=== PATIENT | male | born 1945 | race Caucasian/White ===

== ENCOUNTER 2018-03-17 09:28 | Inpatient (IN) | payer OTHER ==
[2018-03-17] MEDS ORDERED: PANTOPRAZOLE 40 MG INJ ONE (10:32)
[2018-03-17] MEDS ORDERED: ONDANSETRON 4 MG/2 ML VIAL ONE ×2 (10:32→12:28)
[2018-03-17 10:37] LABS: Absolute Lymphocytes (CBC) 1.3 K/uL (0.7-4.9); Absolute Monocytes 0.5 K/uL (0.1-1.3); Absolute Neutrophil 1.8 K/uL (1.8-8.0); Eosinophils % 4.1 % (0-4.4); Hematocrit 38.5 % (39.6-49.0); Lymphocytes % 35.7 % (15.3-44.8); MCH 36.9 pg (27.0-35.0); MCV 105.2 fL (80-100); MPV 8.6 fL (7.6-11.3); Monocytes % 12.1 % (3.3-12.3); RBC Red Blood Cell Count 3.66 M/uL (4.33-5.43)
[2018-03-17 10:57] LABS: Albumin 3.2 g/dL (3.4-5.0); Bilirubin Direct 0.8 mg/dL (0-0.2); Bilirubin Total 2.6 mg/dL (0.2-1.0); Potassium 3.3 mmol/L (3.5-5.1); Protein, Total 7.8 g/dL (6.4-8.2)
[2018-03-17 11:31] LABS: Blood Morphology Comment NOTED (NOT SEEN); Macrocytosis 1+; Platelet Estimate DECR; Urine White Blood Cell Casts OK
[2018-03-17 11:38] LABS: Urine Blood NEGATIVE (NEG); Urine Glucose NEGATIVE (NEG); Urine Protein NEGATIVE (NEG); Urine Specific Gravity 1.015 (1.005-1.030)
[2018-03-17 11:55] LABS: Urine Bacteria NONE SEEN /HPF (NONE SEEN); Urine Culture Reflex Order NOT NEEDED; Urine RBC <5 /HPF (NONE SEEN)
[2018-03-17] MEDS ORDERED: NA CHLORIDE 0.9% 500 ML ONE (12:28)
[2018-03-17] MEDS ORDERED: LORazepam 2 MG/ML VIAL ONE (12:28)
--- NOTE | 2018-03-17 12:31 | ER ---
Nurse's Notes [facility] Name: Ivette Padilla Age: 72 yrs Sex: Male : 1945 Arrival Date: 03/17/2018 Time: 09:30 Bed 13 Private MD: Diagnosis: Upper GI bleed Presentation: 03/17 10:07 Presenting complaint: Patient states: has hx of cirrhosis, started spitting up blood iw this morning at 0830, pt has hx of esophageal varices, is being treated by Dr. Barone at [facility] ,was told to come to ER for evaluation, pt denies nausea or vomiting, denies pain. Transition of care: patient was not received from another setting of care. Onset of symptoms was March 17, 2018. Risk Assessment: Do you want to hurt yourself or someone else? Patient reports no desire to harm self or others. Initial Sepsis Screen: Does the patient meet any 2 criteria? No. Patient's initial sepsis screen is negative. Does the patient have a suspected source of infection? No. Patient's initial sepsis screen is negative. Care prior to arrival: None. 10:07 Method Of Arrival: Ambulatory iw 10:07 Acuity: JADEN 2 iw Triage Assessment: 10:14 General: Appears in no apparent distress. uncomfortable, Behavior is calm, cooperative, hj appropriate for age. Pain: Denies pain. EENT: No signs and/or symptoms were reported regarding the EENT system. Neuro: Cardiovascular: Reports Capillary refill < 3 seconds Patient's skin is warm and dry. Respiratory: Airway is patent Respiratory effort is even, unlabored, Respiratory pattern is regular, symmetrical. GI: Reports vomtinig blood. : No signs and/or symptoms were reported regarding the genitourinary system. Derm: No signs and/or symptoms reported regarding the dermatologic system. Musculoskeletal: No signs and/or symptoms reported regarding the musculoskeletal system. Historical: - Allergies: 10:12 NKA; iw - Home Meds: 10:12 amiloride 5 mg oral tab 1 tab once daily [Active]; furosemide 20 mg Oral tab 1 tab once iw daily [Active]; amlodipine 5 mg tab 1 tab once daily [Active]; ferrous gluconate 324 mg (36 mg iron) Oral tab daily [Active]; cholecalciferol (vitamin D3) 400 unit oral cap twice a day [Active]; cyanocobalamin (vitamin B-12) 1,000 mcg oral tab daily [Active]; - PMHx: 10:12 Cirrhosis; Hypertension; esophageal varices; iw - PSHx: 10:12 Knee surgery; foot; iw - Immunization history:: Adult Immunizations. - Ebola Screening: : Patient negative for fever greater than or equal to 101.5 degrees Fahrenheit, and additional compatible Ebola Virus Disease symptoms Patient denies exposure to infectious person Patient denies travel to an Ebola-affected area in the 21 days before illness onset No symptoms or risks identified at this time. - Social history:: Smoking status: Patient/guardian denies using tobacco, Patient/guardian denies using alcohol. Screenin:13 Abuse screen: Denies threats or abuse. Denies injuries from another. Nutritional hj screening: No deficits noted. Tuberculosis screening: No symptoms or risk factors identified. Fall Risk None identified. Assessment: 11:30 General: Appears in no apparent distress. comfortable, Behavior is calm, cooperative, aj appropriate for age. Pain: Denies pain. Neuro: Level of Consciousness is awake, alert, obeys commands, Oriented to person, place, time, situation, Appropriate for age. Respiratory: Airway is patent Respiratory effort is even, unlabored, Respiratory pattern is regular, symmetrical. GI: Reports vomiting, Vomiting bright red blood. Derm: Skin is intact, is healthy with good turgor, Skin is pink, warm \T\ dry. normal. 15:12 Reassessment: Patient appears in no apparent distress at this time. Patient and/or iw family updated on plan of care and expected duration. Pain level reassessed. Patient is alert, oriented x 3, equal unlabored respirations, skin warm/dry/pink. Vital Signs: 10:12 BP 177 / 66; Pulse 95; Resp 16; Temp 98.2; Pulse Ox 96% on R/A; Weight 83.91 kg; Height iw 5 ft. 6 in. (167.64 cm); Pain 0/10; 11:30 BP 169 / 64; Pulse 82; Resp 17; Pulse Ox 95% on R/A; aj 12:00 BP 165 / 65; Pulse 81; Resp 20; Pulse Ox 99% on R/A; aj 14:46 BP 138 / 53; Pulse 67; Resp 20; Pulse Ox 95% on R/A; aj 10:12 Body Mass Index 29.86 (83.91 kg, 167.64 cm) ED Course: 09:30 Patient arrived in ED. rg4 10:04 Melvin Anton MD is Attending Physician. ps1 10:10 Triage completed. iw 10:12 Magdi Riggs, RN is Primary Nurse. hj 10:12 Arm band placed on. iw 10:15 Patient has correct armband on for positive identification. Placed in gown. Bed in low hj position. Call light in reach. Side rails up X 1. Adult w/ patient. 11:30 Inserted saline lock: 20 gauge in left antecubital area, using aseptic technique. By job [place]. 12:30 Liang Carias DO is Hospitalizing Provider. ps1 12:35 Hospitalizing Provider role handed off by Liang Carias DO ps1 12:35 Mor Rivera MD is Hospitalizing Provider. ps1 14:46 No provider procedures requiring assistance completed. Patient admitted, IV remains in aj place. intact. Administered Medications: 10:16 Drug: ProTONIX 80 mg Route: IVP; Site: left antecubital; hj 11:03 Follow up: Response: No adverse reaction hj 10:16 Drug: Zofran 4 mg Route: IVP; Site: left antecubital; hj 11:03 Follow up: Response: No adverse reaction hj Outcome: 12:30 Decision to Hospitalize by Provider. ps1 15:12 Admitted to Med/surg accompanied by tech, via wheelchair, room 206, Report called to sybil May RN 15:12 Condition: good 15:12 Discharge instructions given to patient, family, Instructed on the need for admit. 15:35 Patient left the ED. aj Signatures: Aleah Wilburn RN Trice Mclean RN RN iw Joaquin, Henry, RN RN hj Garcia, Rubi rg4 Melvin Anton MD MD ps1
--- NOTE | 2018-03-17 12:31 | EDPHYS ---
Physician Documentation [facility] Name: Ivette Padilla Age: 72 yrs Sex: Male : 1945 Arrival Date: 03/17/2018 Time: :30 Bed 13 Private MD: ED Physician Melvin Anton HPI: 03/17 10:27 This 72 yrs old Male presents to ER via Ambulatory with complaints of ps1 SPITTING UP BLOOD. 10:27 The patient presents to the emergency department vomiting blood, a moderate amount, ps1 bright red, with multiple such episodes. Onset: The symptoms/episode began/occurred at 08:00. Abdominal pain: described as crampy. Associated signs and symptoms: Pertinent positives: vomiting. Severity of symptoms: in the emergency department the symptoms are unchanged. history of varicies, no bleeding in past, no banding, hx of cirrhosis and treated at [facility] and in [place]. . Historical: - Allergies: 10:12 NKA; iw - Home Meds: 10:12 amiloride 5 mg oral tab 1 tab once daily [Active]; furosemide 20 mg Oral tab 1 tab once iw daily [Active]; amlodipine 5 mg tab 1 tab once daily [Active]; ferrous gluconate 324 mg (36 mg iron) Oral tab daily [Active]; cholecalciferol (vitamin D3) 400 unit oral cap twice a day [Active]; cyanocobalamin (vitamin B-12) 1,000 mcg oral tab daily [Active]; - PMHx: 10:12 Cirrhosis; Hypertension; esophageal varices; iw - PSHx: 10:12 Knee surgery; foot; iw - Immunization history:: Adult Immunizations. - Ebola Screening: : Patient negative for fever greater than or equal to 101.5 degrees Fahrenheit, and additional compatible Ebola Virus Disease symptoms Patient denies exposure to infectious person Patient denies travel to an Ebola-affected area in the 21 days before illness onset No symptoms or risks identified at this time. - Social history:: Smoking status: Patient/guardian denies using tobacco, Patient/guardian denies using alcohol. ROS: 10:27 Constitutional: Negative for fever, chills, and weight loss, Eyes: Negative for injury, ps1 pain, redness, and discharge, Cardiovascular: Negative for chest pain, palpitations, and edema, Respiratory: Negative for shortness of breath, cough, wheezing, and pleuritic chest pain, : Negative for injury, bleeding, discharge, and swelling, MS/Extremity: Negative for injury and deformity, Skin: Negative for injury, rash, and discoloration, Neuro: Negative for headache, weakness, numbness, tingling, and seizure. 10:27 Abdomen/GI: Positive for nausea and vomiting, hematemesis. Exam: 10:27 Constitutional: This is a well developed, well nourished patient who is awake, alert, ps1 and in no acute distress. Head/Face: Normocephalic, atraumatic. Eyes: Pupils equal round and reactive to light, extra-ocular motions intact. Lids and lashes normal. Conjunctiva and sclera are non-icteric and not injected. Chest/axilla: Normal chest wall appearance and motion. Nontender with no deformity. No lesions are appreciated. Cardiovascular: Regular rate and rhythm. No gallops, murmurs, or rubs. Normal PMI, no JVD. No pulse deficits. Respiratory: Lungs have equal breath sounds bilaterally, clear to auscultation and percussion. No rales, rhonchi or wheezes noted. No increased work of breathing, no retractions or nasal flaring. Back: No spinal tenderness. No costovertebral tenderness. Full range of motion. Skin: Warm, dry with normal turgor. Normal color with no rashes, no lesions, and no evidence of cellulitis. 10:27 Abdomen/GI: Inspection: distension, that is mild, Bowel sounds: normal, Liver: is enlarged, emesis/gastric contents smell of blood. Vital Signs: 10:12 BP 177 / 66; Pulse 95; Resp 16; Temp 98.2; Pulse Ox 96% on R/A; Weight 83.91 kg; Height iw 5 ft. 6 in. (167.64 cm); Pain 0/10; 11:30 BP 169 / 64; Pulse 82; Resp 17; Pulse Ox 95% on R/A; aj 12:00 BP 165 / 65; Pulse 81; Resp 20; Pulse Ox 99% on R/A; aj 14:46 BP 138 / 53; Pulse 67; Resp 20; Pulse Ox 95% on R/A; aj 10:12 Body Mass Index 29.86 (83.91 kg, 167.64 cm) iw MDM: 10:24 Patient medically screened. [facility] 03/17 10:16 Order name: Amylase, Serum; Complete Time: 11:09 ps1 03/17 10:16 Order name: CBC with Diff; Complete Time: 11:33 ps1 03/17 10:16 Order name: Hepatic Function; Complete Time: 11: ps1 03/17 10:16 Order name: Lipase; Complete Time: 11:09 ps1 03/17 10:16 Order name: Urine Microscopic Only; Complete Time: 11:58 ps1 03/17 10:16 Order name: CMP; Complete Time: 11: ps1 03/17 10:16 Order name: Type And Screen; Complete Time: 11:16 ps1 03/17 10:42 Order name: CBC Smear Scan; Complete Time: 11:33 EDOK 03/17 11:01 Order name: ABO/RH no charge; Complete Time: 11: EDOK 03/17 11:28 Order name: Urine Dipstick--Ancillary (enter results); Complete Time: 11:39 bd 03/17 13:01 Order name: Basic Metabolic Panel [facility] 03/17 13:01 Order name: Basic Metabolic Panel [facility] 03/17 13:01 Order name: CBC with Automated Diff [facility] 03/17 13:01 Order name: CBC with Automated Diff [facility] 03/17 10:16 Order name: IV Saline Lock; Complete Time: 10:21 ps1 03/17 10:16 Order name: Labs collected and sent; Complete Time: 10:21 ps1 03/17 13:01 Order name: CONS Pharmacy Consult [facility] 03/17 13:01 Order name: CONS Physician Consult [facility] 03/17 13:01 Order name: NPO [facility] 03/17 13:01 Order name: Hematocrit [facility] 03/17 13:01 Order name: Hematocrit [facility] 03/17 13:01 Order name: Hematocrit [facility] 03/17 13:01 Order name: Hematocrit [facility] 03/17 13:01 Order name: Hemoglobin [facility] 03/17 13:01 Order name: Hemoglobin [facility] 03/17 13:01 Order name: Hemoglobin [facility] 03/17 13:01 Order name: Hemoglobin [facility] 03/17 13:23 Order name: Protime (+INR) [facility] 03/17 10:16 Order name: NPO; Complete Time: 10:21 ps1 Administered Medications: 10:16 Drug: ProTONIX 80 mg Route: IVP; Site: left antecubital; hj 11:03 Follow up: Response: No adverse reaction hj 10:16 Drug: Zofran 4 mg Route: IVP; Site: left antecubital; hj 11:03 Follow up: Response: No adverse reaction hj Disposition: 03/17/18 12:30 Hospitalization ordered by Mor Rivera for Inpatient Admission. Preliminary diagnosis is Upper GI bleed. - Bed requested for Telemetry/MedSurg (Inpatient). - Status is Inpatient Admission. aj - Condition is Stable. - Problem is new. - Symptoms have improved. UTI on Admission? No Signatures: Dispatcher [employer] EDMS Elsa Spencer Amanda, RN RN aj Anderson, Corey, MD MD cha Williams, Irene, RN RN iw Joaquin, Henry, RN RN hj Singer, Phillip, MD MD ps1 Corrections: (The following items were deleted from the chart) 12:35 12:30 Hospitalization Ordered by Liang Carias DO for Inpatient Admission. Preliminary ps1 diagnosis is Upper GI bleed. Bed requested for Telemetry/MedSurg (Inpatient). Status is Inpatient Admission. Condition is Stable. Problem is new. Symptoms have improved. UTI on Admission? No. ps1 14:41 12:35 03/17/2018 12:30 Hospitalization Ordered by Mor Rivera MD for Inpatient bd Admission. Preliminary diagnosis is Upper GI bleed. Bed requested for Telemetry/MedSurg (Inpatient). Status is Inpatient Admission. Condition is Stable. Problem is new. Symptoms have improved. UTI on Admission? No. ps1 15:35 14:41 03/17/2018 12:30 Hospitalization Ordered by Mor Rivera MD for Inpatient aj Admission. Preliminary diagnosis is Upper GI bleed. Bed requested for Telemetry/MedSurg (Inpatient). Status is Inpatient Admission. Condition is Stable. Problem is new. Symptoms have improved. UTI on Admission? No. bd
[2018-03-17] MEDS ORDERED: ONDANSETRON 4 MG/2 ML VIAL IV PRN (12:56)
[2018-03-17] MEDS ORDERED: NA CHLORIDE 0.9% 250 ML IV SCH (13:00)
[2018-03-17] MEDS ORDERED: OCTREOTIDE 500 MCG in NA CHLORIDE 0.9% 500 ML IV SCH (14:00)
[2018-03-17 15:43] LABS: Protime INR 1.18
[2018-03-17 15:44] LABS: Hematocrit 36.5 % (39.6-49.0)
[2018-03-17] MEDS ORDERED: LABETALOL 20 MG/4ML SYRINGE IV PRN (15:57)
[2018-03-17 16:33] VITALS: BMI 29.8
[2018-03-17] MEDS: NA CHLORIDE 0.9% 1,000 ML IV SCH (16:55)
[2018-03-17] MEDS: OCTREOTIDE 500 MCG in NA CHLORIDE 0.9% 500 ML IV SCH (16:56)
[2018-03-17 17:32] LABS: Hematocrit 38.1 % (39.6-49.0)
[2018-03-17] MEDS ORDERED: PNEUMOCOCCAL VACCINE 0.5 ML IMVAC ONE (18:00)
[2018-03-17 21:00] LABS: Hematocrit 35.7 % (39.6-49.0)
[2018-03-17] MEDS: SODIUM CHLORIDE 0.9% 10ML INJ IV SCH (21:00)
[2018-03-17] MEDS: PANTOPRAZOLE 40 MG INJ IVP SCH (21:11)
--- NOTE | 2018-03-18 00:48 | HP ---
Date of Admission: 03/17/2018 Code Status: Full. Primary Care Physician: LUIS. Consultants: Dr. Pizarro, GI. Chief Complaint: Hematemesis. History Of Present Illness: The patient is a 72-year-old male with past medical history of liver cir rhosis secondary to complications from nonalcoholic fatty liver disease, esophageal varices, hyperten galindo, comes in with hematemesis several episodes since this morning. The patient states his symptoms are constant, moderate, progressively worsening, associated with some abdominal discomfort, and naus ea. No other changes. The patient is compliant with his medication. He has had EGD done in 2016 an d has hepatobiliary specialist at [facility], Dr. Son Barone. Upon arrival, the patient's blood pres sure was stable, he was afebrile. His workup revealed hemoglobin of 13.5. He did have some low pota ssium. The patient was then referred for admission for hematemesis. He was given IV PPI. When seen in the ER, he was awake, alert, and oriented x3, with some mild distress. Past Medical History: Liver cirrhosis secondary to complications from nonalcoholic fatty liver disea se. The patient denies any history of alcohol or hepatitis, hypertension, esophageal varices. Past Surgical History: Knee surgery, foot surgery, multiple scopes. Allergies: NO KNOWN DRUG ALLERGIES. Medications: List reviewed. Family History: No history of premature coronary artery disease. Social History: The patient denies any alcohol use, tobacco use, or illicit drug use. The patient i s a . The patient is , lives with his . Good social support. Review of Systems: An 11-point system reviewed, negative except as per HPI. Physical Examination: Vital Signs: Blood pressure 177/66, pulse 95, respirations 16, temperature 98.2, O2 96% on room air. General: Awake, alert, oriented x3. Some mild distress. Elderly male. CV: S1, S2. No murmurs. Regular rate and rhythm. HEENT: Normocephalic, atraumatic. PERRLA. EOMI. Dry mucous membranes. Oropharynx is clear. Conj unctiva is anicteric. Neck: Supple. No JVD. Respiratory: Clear to auscultation bilaterally. No wheezing. No stridor. No use of accessory musc les. Gastrointestinal: Abdomen is soft, nontender, and nondistended. Positive bowel sounds. No guarding or rigidity. No ascites. Extremities: No clubbing or cyanosis. The patient has 2+ lower extremity edema. Neuro: Cranial nerves 2 through 12 intact grossly. No focal neurological deficit. Speech is normal . Strength is 5/5 bilateral upper and lower extremities. Sensation intact to light touch. Skin: No rashes. Normal skin turgor. Psych: Mood is okay. Affect is full. Insight and judgment are good. Laboratory Data: Sodium 141, potassium 3.3, chloride 108, CO2 of 26, BUN 11, creatinine 0.9, glucose 139, calcium 9, total bilirubin 2.6, direct bilirubin 0.8, AST 90, ALT 56, alkaline phosphatase 154, albumin 3.2, lipase 249. WBC 3.8, H and H 13.5 and 38.5, platelets 86, neutrophils 47%. UA is nega tive. Assessment: A 72-year-old male with; 1.Acute gastrointestinal bleed. The patient has hematemesis, likely from esophageal varices. We wi ll start on beta-elio. Obtain GI consult. The patient will likely need EGD with banding of esoph ageal varices. Continue IV PPI. 2.History of liver cirrhosis. According to the patient, he had complications of nonalcoholic fatty liver disease, now with cirrhosis. The patient sees hepatobiliary specialist at [facility]. We will con tact Dr. Barone for further information. The patient recently had MRI of the liver. 3.Essential hypertension, stable. 4.Esophageal varices. We will add beta-elio. 5.GI/DVT prophylaxis with PPI and SCDs. No chemical anticoagulation due to GI bleed. Plan: Admit the patient to Med-Surg, place as inpatient. We will monitor vital signs closely. Celeste tor H and H q.4 hours. Transfuse as needed, type and screen. If vital signs become unstable, we enmanuel aragon transfer to ICU. /JESSE Voice ID: [id number]
[2018-03-18] MEDS: NA CHLORIDE 0.9% 1,000 ML IV SCH ×2 (03:00→16:06)
[2018-03-18] MEDS: OCTREOTIDE 500 MCG in NA CHLORIDE 0.9% 500 ML IV SCH ×4 (03:00→21:28)
[2018-03-18 05:33] LABS: Absolute Lymphocytes (CBC) 0.9 K/uL (0.7-4.9); Absolute Monocytes 0.6 K/uL (0.1-1.3); Absolute Neutrophil 4.5 K/uL (1.8-8.0); Basophils % 0.3 % (0-1.3); Hematocrit 35.1 % (39.6-49.0); MCV 106.2 fL (80-100); Monocytes % 9.9 % (3.3-12.3); RBC Red Blood Cell Count 3.31 M/uL (4.33-5.43)
[2018-03-18 05:41] LABS: Potassium 4.1 mmol/L (3.5-5.1)
[2018-03-18] MEDS: FUROSEMIDE 20 MG/ 2ML VIAL IV SCH (10:07)
[2018-03-18] MEDS: SODIUM CHLORIDE 0.9% 10ML INJ IV SCH ×2 (10:08→21:00)
[2018-03-18] MEDS: PANTOPRAZOLE 40 MG INJ IVP SCH ×2 (10:08→21:28)
[2018-03-18] MEDS ORDERED: NA CHLORIDE 0.9% 0 ML ONE (12:14)
[2018-03-18] MEDS ORDERED: PROPOFOL 200 MG/20 ML VIAL IV ONE ×2 (12:33)
[2018-03-18] MEDS ORDERED: LIDOCAINE 1% MPF 2 ML AMPULE ONE (12:33)
--- NOTE | 2018-03-18 14:04 | ENDO RPT ---
[address], [address] EGD PROCEDURE REPORT EXAM DATE: 03/18/2018 PATIENT NAME: Ivette Padilla MR#: [id number] BIRTHDATE: 1945 ATTENDING: Albino Pizarro Dr STATUS: inpatient [employer]: Racquel Kumari RN and Mya Huang RN INDICATIONS: The patient is a 72 yr old Male here for an EGD due to hematemesis, upper G.I. bleeding, and anemia PROCEDURE PERFORMED: EGD, diagnostic MEDICATIONS: Per Anesthesia. TOPICAL ANESTHETIC: none CONSENT: The patient understands the risks and benefits of the procedure and understands that these risks include, but are not limited to: sedation, allergic reaction, infection, perforation and/or bleeding. Alternative means of evaluation and treatment include, among others: physical exam, x-rays, and/or surgical intervention. The patient elects to proceed with this endoscopic procedure. DESCRIPTION OF PROCEDURE: During intra-op preparation period all mechanical medical equipment was checked for proper function. Hand hygiene and appropriate measures for infection prevention was taken. Procedure, possible complications, and alternatives including but not limited to the possibility of bleeding, perforation, tear, infection, sepsis, need for surgery, need for blood transfusion, and anesthesia related complications were explained to the patient. After the risks, benefits and alternatives of the procedure were thoroughly explained, Informed consent was verified, confirmed and timeout was successfully executed by the treatment team. The patient was placed in the left lateral position. The patient was anesthetized with topical anesthesia. Through the anesthetized oropharyngeal area, the scope was passed without any difficulty. The Pentax EG-[id number] ([id number]) endoscope was introduced through the mouth and advanced to the third portion of the duodenum. Retroflexed views revealed a moderate sized hiatal hernia. The gastroscope was then slowly withdrawn and removed. Blood was found in the pharynx. A small hiatal hernia was found Severe gastritis was found in the cardia. ADVERSE EVENTS: There were no complications. IMPRESSIONS: 1. Old dark>>fresh heme/blood was found in the hypopharynx 2. Possible Burns's esophagus ( 1 cm) in the distal esophagus (no biopsies obtained in setting of acute upper GI bleed) 3. Small hiatal hernia 4. Severe hemorrhagic gastritis at the cardia RECOMMENDATIONS: 1. check helicobacter pylori status, treat if indicated 2. acid suppression therapy REPEAT EXAM: Albino Pizarro Dr eSigned: Albino Pizarro Dr 03/18/2018 1:40 PM cc: CPT CODES: ICD9 CODES: PATIENT NAME: Valerie Jennifersil Sánchez MR#: [id number]
--- NOTE | 2018-03-18 18:05 | PN ---
Date of Progress Note: 03/18/2018 Subjective: The patient is seen and examined. Chart reviewed and case discussed with RN. The patient still having some hematemesis, however, has slowed down. The patient is going for EGD today. Review of Systems: Negative except as above. Medications: List reviewed. Physical Examination: Vital Signs: Temperature 98.1, heart rate 69, blood pressure 118/58, respirations 17, O2 saturation 95% on room air. General: Awake, alert, oriented x3, elderly male, somewhat ill-appearing. CV: S1, S2. No murmurs. Peripheral pulses present. Respiratory: Moving air well bilaterally. No wheezing. Gastrointestinal: Abdomen is soft, nontender, nondistended. Positive bowel sounds. Extremities: No clubbing, cyanosis. The patient does have lower extremity edema. Neurologic: Nonfocal. Laboratory Data: Sodium 143, potassium 4.1, chloride 112, CO2 24, BUN 15, creatinine 1, glucose 110, calcium 8.4. WBC 6.2, H and H 12.6 and 35.1, platelets 77. INR 1.18. Assessment: A 72-year-old male with: 1. Acute gastrointestinal bleed secondary to hematemesis, likely from esophageal varices. The patient does have history of liver cirrhosis. Awaiting EGD for banding procedure. H and H are stable. We will continue with octreotide and PPI. 2. Cirrhosis secondary to complications of nonalcoholic fatty liver disease. Spoke with Dr. Barone from [facility], who is the patient's hepatobiliary specialist. The patient had recent MRI of the liver, which showed the 1 lesion ; however, did not meet criteria suspicious for cancer. His AFP tumor marker was believed to be processed and will be redone when the patient visits with Dr. Barone again. 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 Portal vein is opened. Date of MRI was 03/12/2018. 3. Essential hypertension, stable. 4. Hypokalemia, replaced. We will continue to monitor. 5. Possible Esophageal varices. 6. Gastrointestinal and deep venous thrombosis prophylaxis with PPI and SCDs. No chemical anticoagulation due to gastrointestinal bleed. SA/MODL Voice ID: [id number] Report ID: [id number]
--- NOTE | 2018-03-19 00:52 | P.PN ---
Subjective Date of Service: 03/17/18 Called regarding coughing up blood-patient with persistent cough and multiple episodes of hemoptysis-may need Pulmonary eval but awaiting GI endoscopy; patient may have GIB as he has a history of esophageal varices Review of Systems 10-point ROS is otherwise unremarkable Physical Examination - Vital Signs Temperature: 98.5 F Blood Pressure: 129/61 Pulse: 72 Respirations: 16 Pulse Ox (%): 93 - Physical Exam General: Alert, In no apparent distress, Oriented x3 Respiratory: Clear to auscultation bilaterally, Normal air movement Cardiovascular: Regular rate/rhythm, Normal S1 S2, Systolic murmur Gastrointestinal: Soft and benign, Non-distended, No tenderness Assessment & Plan - Problems (Diagnosis) (1) Hemoptysis Current Visit: Yes Status: Acute (2) UGI bleed Onset Date: 03/18/18 Current Visit: Yes Status: Acute - Plan 1. Continue with upper GI work-up 2. May need pulmonary work-up depending on findings as above Discharge Plan: Home Plan to discharge in: Greater than 2 days - Advance Directives Does patient have a Living Will: No Does patient have a Durable POA for Healthcare: No - Code Status/Comfort Care Code Status Assessed: Yes Code Status: Full Code Critical Care: No Time Spent Managing PTS Care (In Minutes): 35
[2018-03-19] MEDS: NA CHLORIDE 0.9% 1,000 ML IV SCH (05:24)
[2018-03-19 05:32] LABS: Absolute Lymphocytes (CBC) 0.8 K/uL (0.7-4.9); Absolute Monocytes 0.4 K/uL (0.1-1.3); Absolute Neutrophil 1.6 K/uL (1.8-8.0); Basophils % 0.6 % (0-1.3); Eosinophils % 6.8 % (0-4.4); Hematocrit 33.2 % (39.6-49.0); Lymphocytes % 27.3 % (15.3-44.8); MCH 37.3 pg (27.0-35.0); MPV 8.9 fL (7.6-11.3); Monocytes % 13.5 % (3.3-12.3); RBC Red Blood Cell Count 3.15 M/uL (4.33-5.43)
[2018-03-19 05:40] LABS: MCV 105.5 fL (80-100)
[2018-03-19 05:53] LABS: Albumin 2.7 g/dL (3.4-5.0); Bilirubin Total 2.5 mg/dL (0.2-1.0); Magnesium 1.8 mg/dL (1.8-2.4); Potassium 3.8 mmol/L (3.5-5.1); Protein, Total 6.4 g/dL (6.4-8.2)
[2018-03-19] MEDS ORDERED: POTASSIUM CL SA 10 MEQ TAB PO ONE (06:30)
[2018-03-19] MEDS ORDERED: MAGNESIUM SULFATE 1 gm IVPB 1 GM/100 ML BAG IV ONE (06:30)
--- NOTE | 2018-03-19 08:27 | RAD REPORT ---
EXAM DESCRIPTION: CT - Thorax W/ Con CLINICAL HISTORY: Chest pain hemoptysis COMPARISON: No comparisons FINDINGS: Small poorly defined ground-glass opacity in the posterior right upper lobe with vague nod ular components present. The area of opacity proximally measures 28 x 17 mm. No pleural thickening or pleural effusion. No pneumothorax. No axillary, mediastinal or hilar adenopathy. Mild esophageal thickening is seen. Mild bilateral gyne comastia. No concerning bony finding. Prominent liver cirrhosis is present. Trace fluid is seen along the right hepatic edge. Several low-density liver lesions are present, incompletely assessed. Splenomegaly is present. Portal hypertension esophageal varices likely present. All CT scans are performed using dose optimization technique as appropriate and may include automated exposure control or mA/KV adjustment according to patient size. IMPRESSION: Vague opacity in the posterior right upper lobe (28 x 17 mm) demonstrating ground-glass and nodular features.Appearance is nonspecific and infectious as well as neoplastic etiologies are po ssible. Follow-up CT would be advised in 2-3 months for continued surveillance. Prominent liver cirrhosis is seen with vague low-density liver lesions present. Moderate splenomegaly and evidence of portal hypertension also noted.
[2018-03-19] MEDS: FUROSEMIDE 20 MG/ 2ML VIAL IV SCH (08:28)
[2018-03-19] MEDS: OCTREOTIDE 500 MCG in NA CHLORIDE 0.9% 500 ML IV SCH (08:28)
[2018-03-19] MEDS: PANTOPRAZOLE 40 MG INJ IVP SCH ×2 (08:28→20:47)
[2018-03-19] MEDS: SODIUM CHLORIDE 0.9% 10ML INJ IV SCH ×2 (08:29→20:48)
--- NOTE | 2018-03-19 11:54 | PN ---
Date of Progress Note: 03/19/2018 Subjective: The patient is seen and examined, chart reviewed, and case discussed with RN. The patie nt went for EGD yesterday and noted to have severe gastritis, possible Burns's esophagus, small hia matias hernia. The patient still having some hematemesis. Hemoglobin remained stable. The patient den ies any complaints. Tolerating clear liquid diet. Review of Systems: Negative except as above. Medications: List reviewed. Objective: Vital Signs: Temperature 98.6, heart rate 61, blood pressure 135/62, respirations 18, O2 93% on room air. General: Awake, alert, oriented x3. Elderly male, ill-appearing, not in any acute distress. CV: S1, S2. No murmurs. Respiratory: Clear to auscultation bilaterally. No wheezing. No stridor. No use of accessory musc les Gastrointestinal: Abdomen is soft, nontender, nondistended. Positive bowel sounds. Extremities: No clubbing, cyanosis. The patient does have some lower extremity edema. Neurologic: Nonfocal. Laboratory Data: Sodium 140, potassium 3.8, chloride 109, CO2 27, BUN 11, creatinine 1, glucose 132, calcium 7.7, total bilirubin 2.5, AST 94, ALT 50, ammonia 77. Albumin is 2.7. WBC 3.1, H and H 11. 7 and 33.2, platelets 72. CT scan of the chest shows vague opacity in the posterior right upper lobe demonstrating ground-glass and nodular features. Appearance is nonspecific and infectious as well a s neoplastic etiologies are possible. Of note, CT advising 2-3 months for continued surveillance. P rominent liver cirrhosis is seen with vague low density liver lesions present, moderate splenomegaly and evidence of portal hypertension also noted. Assessment And Plan: A 72-year-old male with; 1.Bleed secondary to acute hemorrhagic gastritis. No esophageal varices found on EGD. Continue oct reotide and IV PPI. Dr. Pizarro on board. Monitor H and H, so far has been stable. 2.Nodular lesion in the posterior right upper lobe of the lung. We will need repeat CT in 2-3 month s. 3.Liver cirrhosis secondary to complications from nonalcoholic fatty liver disease. CT chest shows some nodular lesions. The patient recently had an MRI. Please see details from previous problems. 4.Essential hypertension, stable. 5.Gastrointestinal and deep venous thrombosis prophylaxis with PPI and SCDs. 6.Hyperammonemia. Mental status is normal. V/Q. /JESSE Voice ID: [id number] Report ID: [id number]
[2018-03-20 05:02] LABS: Absolute Monocytes 0.5 K/uL (0.1-1.3); Absolute Neutrophil 1.7 K/uL (1.8-8.0); Basophils % 0.6 % (0-1.3); Eosinophils % 8.4 % (0-4.4); Lymphocytes % 27.9 % (15.3-44.8); MCH 38.1 pg (27.0-35.0); MPV 8.7 fL (7.6-11.3); Monocytes % 14.1 % (3.3-12.3); RBC Red Blood Cell Count 3.03 M/uL (4.33-5.43)
[2018-03-20 05:04] LABS: MCV 105.7 fL (80-100)
[2018-03-20 05:20] LABS: Magnesium 1.8 mg/dL (1.8-2.4); Potassium 3.7 mmol/L (3.5-5.1)
[2018-03-20] MEDS ORDERED: MAGNESIUM SULFATE 1 gm IVPB 1 GM/100 ML BAG IV ONE (06:00)
[2018-03-20] MEDS ORDERED: POTASSIUM CL SA 10 MEQ TAB PO ONE (06:00)
[2018-03-20] MEDS: FUROSEMIDE 20 MG/ 2ML VIAL IV SCH (09:15)
[2018-03-20] MEDS: PANTOPRAZOLE 40 MG INJ IVP SCH ×2 (09:15→20:53)
[2018-03-20] MEDS: SODIUM CHLORIDE 0.9% 10ML INJ IV SCH ×2 (09:16→20:53)
[2018-03-20] MEDS ORDERED: TUBERCULIN PPD 5 TU/0.1 ML ID SCH (10:00)
--- NOTE | 2018-03-20 14:19 | PN ---
Date of Progress Note: 03/20/2018 The patient is seen and examined. Chart reviewed and case was discussed with RN and Dr. Pizarro as well as Dr. Case. I also contacted the patient's biliary specialist, Dr. Barone upon request of the patient's to keep her up-to-date on the patient's condition. Dr. Barone did not recommend inpatient transfer and stated that she willing to see him day after discharge in her clinic. The patient is still having some light hemoptysis, states that he is not coughing up blood. The patient otherwise has not had any bleeding in his stool. Review of Systems: Negative except as above. Medications: List reviewed. Physical Examination: Vital Signs: Temperature 97.5, heart rate 53, blood pressure 127/58, respirations 18, O2 96% on room air. General: Awake, alert, oriented x3, not in any acute distress. Elderly male. CV: S1, S2. No murmurs. Regular rate and rhythm. Peripheral pulses present. Respiratory: Moving air well bilaterally. No wheezing. Gastrointestinal: Abdomen is soft, nontender, nondistended. Positive bowel sounds. Extremities: No clubbing, cyanosis. Does have lower extremity edema. Neurologic: Nonfocal. Laboratory Data: Sodium 142, potassium 3.7, chloride 109, CO2 29, BUN 9, creatinine 0.9, glucose 133, calcium 7.9, magnesium 1.8. WBC 3.5, H and H 11.5 and 32, MCV 105.7, platelets 68, neutrophils 49%. CT scan of the chest shows vague opacity in the right upper lobe demonstrating ground-glass and nodular features and probable liver cirrhosis seen with vague low density liver lesions , moderate splenomegaly and evidence of portal hypertension also noted. Assessment And Plan: A 72-year-old male with: 1. Acute gastrointestinal bleed secondary to hemorrhagic gastritis. We will wean off octreotide and continue IV PPI. GI on board. Continue to monitor H and H. 2. Microcytic anemia. Hemoglobin has dropped mildly over the course of the hospital stay likely from the hematemesis and IV fluids with some dilutional anemia. The patient also reporting coughing of blood. We will have Pulmonology evaluate the nodular lesion in the posterior right upper lobe of the lung. The patient will need repeat CT in 2-3 months. 3. Liver cirrhosis secondary to complications from nonalcoholic fatty liver disease. 4. Essential hypertension, stable. 5. Gastrointestinal and deep venous thrombosis prophylaxis with PPI and SCDs. No chemical anticoagulation due to bleed. Plan: Pulmonology consultation. 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 We will obtain AFB smear x3. /JESSE Voice ID: [id number] Report ID: [id number] [facility]
--- NOTE | 2018-03-20 18:41 | P.PN ---
Subjective Date of Service: 03/20/18 Chief Complaint: Hematemesis. Now notes coughing Subjective: No new changes Review of Systems 10-point ROS is otherwise unremarkable Respiratory: Cough, Hemoptysis (possible hemoptysis +/- hematemesis) Gastrointestinal: Other (hematemesis) Physical Examination - Vital Signs Temperature: 97.9 F Blood Pressure: 158/70 Pulse: 55 Respirations: 18 Pulse Ox (%): 98 - Physical Exam General: Alert, In no apparent distress, Oriented x3, Cooperative HEENT: Atraumatic, Normocephalic, PERRLA, EOMI Neck: Supple Respiratory: Normal air movement Assessment And Plan - Current Problems (Diagnosis) (1) Hematemesis Current Visit: Yes Status: Acute (2) Abnormal CT of the abdomen Current Visit: Yes Status: Acute Comment: ~ 2 cm lung lesion of unknown etiology. 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 (3) Hemoptysis Current Visit: Yes Status: Acute Comment: Possible hemoptysis (4) UGI bleed Onset Date: 03/18/18 Current Visit: Yes Status: Acute - Plan REC: 1) continue PPI therapy 2) agree with pulmonology consult 3) await TB test
[2018-03-21 01:56] VITALS: O2SAT 97
[2018-03-21 05:02] LABS: Absolute Lymphocytes (CBC) 1.1 K/uL (0.7-4.9); Absolute Monocytes 0.5 K/uL (0.1-1.3); Absolute Neutrophil 1.5 K/uL (1.8-8.0); Basophils % 1.1 % (0-1.3); Eosinophils % 8.1 % (0-4.4); Hematocrit 33.2 % (39.6-49.0); Lymphocytes % 30.7 % (15.3-44.8); MCH 37.4 pg (27.0-35.0); MCV 105.1 fL (80-100); MPV 9.2 fL (7.6-11.3); Monocytes % 15.6 % (3.3-12.3); RBC Red Blood Cell Count 3.16 M/uL (4.33-5.43)
[2018-03-21 05:22] LABS: Magnesium 1.9 mg/dL (1.8-2.4); Potassium 3.7 mmol/L (3.5-5.1)
[2018-03-21] MEDS ORDERED: POTASSIUM CL SA 10 MEQ TAB PO ONE (06:00)
[2018-03-21] MEDS: SODIUM CHLORIDE 0.9% 10ML INJ IV SCH (09:00)
[2018-03-21] MEDS: PANTOPRAZOLE 40 MG INJ IVP SCH (09:20)
[2018-03-21] MEDS: FUROSEMIDE 20 MG/ 2ML VIAL IV SCH (09:20)
[2018-03-21] MEDS ORDERED: OXYMETAZOLINE HCL 0.05% 30ML NAS PRN (10:43)
--- NOTE | 2018-03-21 10:48 | P.CNS ---
Date of Consult: 03/21/18 Reason for Consult: Possible hemoptysis Chief Complaint: Hematemesis. Now notes coughing History of Present Illness: Patient is 72 years of age admitted with hematemesis as a history off cirrhosis of the liver cause unknown EGD shows severe gastritis and PPIs were advised He still coughing up bright red blood for prior history of cardiopulmonary problems he did have an abnormal CT scan denies any nasal bleeding follows up with the GI specialist in [place] he is doing much better Allergies No Known Allergies Allergy (Verified 03/17/18 15:49) Home Medications: Amiloride HCl 5 mg PO DAILY 03/17/18 Amlodipine Besylate 1 tab PO DAILY 03/17/18 Cholecalciferol (Vitamin D3) [Vitamin D3] 1 tab PO DAILY 03/17/18 Cyanocobalamin [Vitamin B-12*] 1 tab PO DAILY 03/17/18 Ferrous Gluconate 1 tab PO DAILY 03/17/18 Furosemide [Lasix*] 20 mg PO DAILY 03/17/18 Multivitamin [Multiple Vitamins] 1 tab PO DAILY 03/17/18 - Past Medical/Surgical History Diabetic: No -: htn -: cirrhosis stage 4 -: esophageal varices -: mass removed from foot L -: L knee repair - Family History Mother Medical History: Heart disease, Hypertension, Stroke Notes: addiction problem Brother Medical History: Hypertension, Stroke, Kidney disease Notes: addiction problems Sister Medical History: Cancer Notes: addiction problems - Social History Alcohol use: Yes CD- Drugs: No Caffeine use: Yes Place of Residence: Home Review of Systems 10-point ROS is otherwise unremarkable Physical Examination Temp Pulse Resp BP Pulse Ox 98.2 F 55 16 159/70 H 97 03/21/18 08:00 03/21/18 09:20 03/21/18 08:00 03/21/18 09:20 03/21/18 08:00 General: Alert, Oriented x3 HEENT: Atraumatic Neck: Supple Respiratory: Clear to auscultation bilaterally Cardiovascular: No edema, Regular rate/rhythm Gastrointestinal: Normal bowel sounds, Soft and benign Musculoskeletal: No clubbing, No swelling - Problems (1) Abnormal CT scan of lung Current Visit: Yes Status: Acute Plan: Patient is 72 years of age admitted with hematemesis I suspect is from is hemorrhagic gastritis doubt nasal or op pulmonary source of his bleeding chemistries unremarkable hemoglobin is stable at 11.8 patient has ground-glass opacity in the right upper lobe which will need to be followed up with a repeat keys CT scan in about 3 months. 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
--- NOTE | 2018-03-21 16:25 | DS ---
Date of Discharge: 03/21/2018 Procedures: Esophagogastroduodenoscopy by Dr. Pizarro on 03/18/2018. Postoperative Diagnoses: Severe gastric ulcer, severe gastritis, blood in the hypopharynx, possible Burns esophagus, small hiatal hernia. Consultants: Dr. Pizarro, GI; Dr. Case, Pulmonology. Admitting Diagnoses: 1.Acute gastrointestinal bleed, hematemesis. 2.History of liver cirrhosis secondary to complications of nonalcoholic fatty liver disease. 3.Essential hypertension. 4.Possible esophageal varices. Discharge Diagnoses: 1.Acute gastrointestinal bleed secondary to hemorrhagic gastritis, improving. 2.Microcytic anemia. 3.Possible hemoptysis, unclear etiology, may be secondary to nosebleed versus hematemesis. 4.Liver cirrhosis secondary to complications from nonalcoholic fatty liver disease. 5.Essential hypertension, stable. 6.Nodular opacity in the posterior right upper lobe. Repeat CT scan in 1-2 months. No cavitary les ion present. Doubt tuberculosis. Hospital Course: The patient is a 72-year-old male, comes in with a history of hematemesis. The pat ient has been spitting up blood. No abdominal pain, nausea. The patient follows up with Dr. Rosenda jensen at [facility]. The patient's hemoglobin was 13.5. He was started on IV PPI and octreotide drip. GI was consulted. The patient had EGD with results as mentioned above. The patient's bleeding improved . His hemoglobin decreased slightly to 11. The patient otherwise did not have any bleeding stools o r melena. CT scan of the chest was also done as the patient then reported some possible hemoptysis a nd coughing up blood instead of spitting up blood and CT chest did not show any obvious source of ble eding, did show a vague opacity in the posterior right upper lobe, 28 x 17 mm demonstrating ground-gl ass and nodular features. Appearance was nonspecific and could be infectious or possibly neoplastic. Pulmonology was consulted. Dr. Case did not recommend bronchoscopy at this time, recommended o utpatient followup and CT in 2 months. The patient did remember that for the past month or so, he oliva s been having nosebleeds and therefore, Afrin was tried intranasally with nasal spray to help bleelizabetin g. ENT, Dr. Arteaga was contacted; however, she is out of town. The patient was recommended to foll ow up with ENT as an outpatient, either with Dr. Arteaga or ENT of choice. The patient has an appoin tment with Dr. Barone on 03/25/2018. The patient's hemoglobin was stable. He was able to ambulat e. His bleeding had decreased. His vital signs were stable. The patient was cleared for discharge from consultants' standpoint. He was then discharged home in stable condition. Activity: As tolerated. Medications: As per medication reconciliation list. Followup: Follow up with primary care physician in 2-3 days. Follow up with GI specialist at [facility] on 03/25/2018. Follow up with supervisor fiberglass boat assembly, Dr. Case in 2 weeks. Follow up with ENT, Dr. Arteaga or other ENT of choice in [address] scan in 1-2 months. Return to ER for worse angel condition. Diet: Low-sodium, fluid-restricted diet. Physical Examination: General: Awake, alert, oriented x3. No acute distress. CV: S1, S2. No murmurs. Respiratory: Moving air well bilaterally. No wheezing. Gastrointestinal: Abdomen is soft, nontender, nondistended. Positive bowel sounds. Extremities: No clubbing, cyanosis. Trace pedal edema. Neurologic: Nonfocal. HEENT: Nasal passage has some bogginess and some mild erythema. Total time spent discharging the patient was 39 minutes. /JESSE Voice ID: [id number] Report ID: [id number]
--- NOTE | 2018-03-21 17:21 | P.PN ---
Subjective Date of Service: 03/21/18 Chief Complaint: Hematemesis. Now notes occasional blood clots in his nares with outpatient Subjective: Improving (Outpatient ENT evaluation planned. Pulmonology saw patient today for ~ 2 cm lung lesion. PPD at 1 day negative.) Review of Systems 10-point ROS is otherwise unremarkable ENT: Other (epistaxis ) Physical Examination - Vital Signs Temperature: 98.2 F Blood Pressure: 142/67 Pulse: 59 Respirations: 16 Pulse Ox (%): 98 - Physical Exam General: Alert, In no apparent distress, Oriented x3, Cooperative HEENT: Atraumatic, Normocephalic, PERRLA, EOMI Neck: Supple Respiratory: Normal air movement Cardiovascular: Normal pulses Gastrointestinal: Soft and benign, No tenderness, No rebound, No guarding Neurological: Normal speech, Normal strength at 5/5 x4 extr Assessment And Plan - Current Problems (Diagnosis) (1) Hematemesis Status: Acute Comment: None today. But reports occasional blood clots in his nares. On PPI for hemorrhagic gastritis at the cardia (2) Abnormal CT of the abdomen Status: Acute Comment: ~ 2 cm lung lesion of unknown etiology. 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 (3) Hemoptysis Status: Acute Comment: Possible hemoptysis (4) UGI bleed Onset Date: 03/18/18 Status: Acute - Plan REC: 1) continue PPI therapy 2) agree with ENT consult 3) await TB test at 2 days
[2018-03-24 08:24] VITALS: BP 129/61; TEMP 98.5
== END 2018-03-21 15:31 | disposition home or self-care (01) | DRG 378 ==
LOC: ER 09:28 → ERHOLD 14:09 → 2ND 15:12
PROVIDERS: ADMIT Family Medicine; ATTEND Family Medicine
PROC: 0DJ08ZZ Inspection of Upper Intestinal Tract, Via Natural or Artificial Opening Endoscopic (ICD-10-PCS; principal; 2018-03-18 11:45)
DX: K29.01 Acute gastritis with bleeding (principal); R04.2 Hemoptysis; E72.20 Disorder of urea cycle metabolism, unspecified; R91.1 Solitary pulmonary nodule; D50.0 Iron deficiency anemia secondary to blood loss (chronic); K74.69 Other cirrhosis of liver; K76.0 Fatty (change of) liver, not elsewhere classified; I10 Essential (primary) hypertension; R04.0 Epistaxis; Z87.891 Personal history of nicotine dependence; K44.9 Diaphragmatic hernia without obstruction or gangrene; K22.70 Barrett's esophagus without dysplasia
CPT/HCPCS: 36415; 71260; 80048; 80053; 80076; 81003; 81015; 82140; 82150; 83690; 83735; 85014; 85018; 85025; 85610; 86850; 86900; 86901; 87015; 87116; 87206; 94760; 96374; 96375; 99285; C9113; J1940; J2001; J2354; J2405; J3475; J7030; Q9967

== ENCOUNTER → 2018-05-13 | Day surgery (SDC) | payer OTHER ==
[~2018-05-13] MED LIST: GLYCOPYRROLATE 0.2 MG/ML SYR ONE; LIDOCAINE 1% MPF 2 ML AMPULE ONE; NA CHLORIDE 0.9% 1,000 ML ONE; PROPOFOL 200 MG/20 ML VIAL IV ONE
--- NOTE | 2018-05-13 09:01 | ENDO RPT ---
[address], [address] EGD PROCEDURE REPORT EXAM DATE: 05/13/2018 PATIENT NAME: Ivette Padilla MR#: [id number] BIRTHDATE: 1945 ATTENDING: Albino Pizarro Dr STATUS: outpatient FORMING PROCESS LINE WORKER: Suzanne Hope and Jessy Bustos RN INDICATIONS: The patient is a 72 yr old Male here for an EGD due to iron deficiency anemia PROCEDURE PERFORMED: EGD with biopsy MEDICATIONS: Per Anesthesia. TOPICAL ANESTHETIC: none CONSENT: The patient understands the risks and benefits of the procedure and understands that these risks include, but are not limited to: sedation, allergic reaction, infection, perforation and/or bleeding. Alternative means of evaluation and treatment include, among others: physical exam, x-rays, and/or surgical intervention. The patient elects to proceed with this endoscopic procedure. DESCRIPTION OF PROCEDURE: During intra-op preparation period all mechanical medical equipment was checked for proper function. Hand hygiene and appropriate measures for infection prevention was taken. Procedure, possible complications, and alternatives including but not limited to the possibility of bleeding, perforation, tear, infection, sepsis, need for surgery, need for blood transfusion, and anesthesia related complications were explained to the patient. After the risks, benefits and alternatives of the procedure were thoroughly explained, Informed consent was verified, confirmed and timeout was successfully executed by the treatment team. The patient was placed in the left lateral position. The patient was anesthetized with topical anesthesia. Through the anesthetized oropharyngeal area, the scope was passed without any difficulty. The Pentax EG-[id number] ([id number]) endoscope was introduced through the mouth and advanced to the third portion of the duodenum. Retroflexed views revealed no abnormalities. The gastroscope was then slowly withdrawn and removed. Possible Burns's esophagus (1 cm) was found in the lower esophagus. Multiple biopsies were obtained and sent to pathology. Moderate gastritis was found in the total stomach. Multiple biopsies were obtained and sent to pathology. Duodenitis was found in the bulb of the duodenum. Small bowel biopsies obtained with history of iron deficiency anemia. ADVERSE EVENTS: There were no complications. IMPRESSIONS: 1. 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 Moderate gastritis in the total stomach, s/p biopsies 3. Duodenitis in the bulb of the duodenum 4. Small bowel biopsies obtained with history of iron deficiency anemia RECOMMENDATIONS: 1. await biopsy results 2. acid suppression therapy REPEAT EXAM: Albino Pizarro Dr eSigned: Albino Pizarro Dr 05/13/2018 9:00 AM cc: Foster Medrano CPT CODES: ICD9 CODES: PATIENT NAME: Jennifer Padillasil Sánchez MR#: [id number]
--- NOTE | 2018-05-13 09:26 | ENDO RPT ---
[address], [address] COLONOSCOPY PROCEDURE REPORT EXAM DATE: 05/13/2018 PATIENT NAME: Ivette Padilla MR #: [id number] BIRTHDATE: 1945 ATTENDING: Albino Pizarro Dr STATUS: outpatient TYPESETTERS PRINTER: Suzanne Hope and Jessy Bustos RN INDICATIONS: The patient is a 72 yr old Male here for a colonoscopy due to iron deficiency anemia and personal history of colon polyps PROCEDURE PERFORMED: Colonoscopy with snare polypectomy MEDICATIONS: Per Anesthesia. ESTIMATED BLOOD LOSS: None CONSENT: The patient understands the risks and benefits of the procedure and understands that these risks include, but are not limited to: sedation, allergic reaction, infection, perforation and/or bleeding. Alternative means of evaluation and treatment include, among others: physical exam, x-rays, and/or surgical intervention. The patient elects to proceed with this endoscopic procedure. DESCRIPTION OF PROCEDURE: During intra-op preparation period all mechanical medical equipment was checked for proper function. Hand hygiene and appropriate measures for infection prevention was taken. Procedure, possible complications, alternatives including, but not limited to possibility of bleeding, perforation, tear, infection, sepsis, need for surgery, need for blood transfusion, were explained to the patient. After the risks, benefits and alternatives of the procedure were thoroughly explained, Informed consent was verified, confirmed and timeout was successfully executed by the treatment team. The patient was placed in the left lateral position. A digital rectal exam was performed and revealed an enlarged prostate. After appropriate level of anesthesia, the scope was passed. The EG-[id number] ([id number]) and EC-[id number] ([id number]) endoscope was introduced through the anus and advanced to the cecum, which was identified by both the appendix and ileocecal valve. The quality of the prep was fair. The instrument was then slowly withdrawn as the colon was fully examined. Scope withdrawal time was 8 minutes. COLON FINDINGS: A smooth flat polyp measuring 1 cm in size with a mucous cap was found at the cecum. A polypectomy was performed using snare cautery. Moderate sized internal hemorrhoids were found. Retroflexed views revealed medium hemorrhoids. The scope was then completely withdrawn from the patient and the procedure terminated. ADVERSE EVENTS: There were no complications. IMPRESSIONS: 1. Flat polyp measuring 1 cm in size at the cecum; polypectomy was performed using snare cautery 2. Moderate sized internal hemorrhoids 3. Intubation to cecum RECOMMENDATIONS: 1. await biopsy results 2. avoid NSAIDS for 2 weeks 3. urology follow-up for enlarged prostate RECALL: Return in 1 year(s) for Colonoscopy. Albino Pizarro Dr eSigned: Albino Pizarro Dr 05/13/2018 9:25 AM cc: Foster Medrano CPT CODES: ICD9 CODES: 1. 600.0 Hypertrophy (benign) of prostate 2. 211.3 Benign neoplasm of colon PATIENT NAME: Ivette Padilla MR#: [id number]
[2018-05-13 09:27] VITALS: TEMP 98.5
--- NOTE | 2018-05-13 09:28 | ENDO RPT ---
[address], [address] COLONOSCOPY PROCEDURE REPORT EXAM DATE: 05/13/2018 PATIENT NAME: Ivette Padilla MR #: [id number] BIRTHDATE: 1945 ATTENDING: Albino Pizarro Dr STATUS: outpatient GLASS EMBOSSER: Suzanne Hope and Jessy Bustos RN INDICATIONS: The patient is a 72 yr old Male here for a colonoscopy due to iron deficiency anemia and personal history of colon polyps PROCEDURE PERFORMED: Colonoscopy with snare polypectomy and Colon w/ endoclip MEDICATIONS: Per Anesthesia. ESTIMATED BLOOD LOSS: None CONSENT: The patient understands the risks and benefits of the procedure and understands that these risks include, but are not limited to: sedation, allergic reaction, infection, perforation and/or bleeding. Alternative means of evaluation and treatment include, among others: physical exam, x-rays, and/or surgical intervention. The patient elects to proceed with this endoscopic procedure. DESCRIPTION OF PROCEDURE: During intra-op preparation period all mechanical medical equipment was checked for proper function. Hand hygiene and appropriate measures for infection prevention was taken. Procedure, possible complications, alternatives including, but not limited to possibility of bleeding, perforation, tear, infection, sepsis, need for surgery, need for blood transfusion, were explained to the patient. After the risks, benefits and alternatives of the procedure were thoroughly explained, Informed consent was verified, confirmed and timeout was successfully executed by the treatment team. The patient was placed in the left lateral position. A digital rectal exam was performed and revealed an enlarged prostate. After appropriate level of anesthesia, the scope was passed. The EG-[id number] ([id number]) and [id number] ([id number]) endoscope was introduced through the anus and advanced to the cecum, which was identified by both the appendix and ileocecal valve. The quality of the prep was fair. The instrument was then slowly withdrawn as the colon was fully examined. Scope withdrawal time was 8 minutes. COLON FINDINGS: A smooth flat polyp measuring 1 cm in size with a mucous cap was placement X1. Moderate sized internal hemorrhoids were found. Retroflexed views revealed medium hemorrhoids. The scope was then completely withdrawn from the patient and the procedure terminated. ADVERSE EVENTS: There were no complications. IMPRESSIONS: 1. Flat polyp measuring 1 cm in size at the cecum; polypectomy 2. Moderate sized internal hemorrhoids 3. Intubation to cecum RECOMMENDATIONS: 1. await biopsy results 2. avoid NSAIDS for 2 weeks 3. urology follow-up for enlarged prostate RECALL: Return in 1 year(s) for Colonoscopy. Albino Pizarro Dr eSigned: Albino Pizarro Dr 05/13/2018 9:28 AM Revised: 05/13/2018 9:28 AM cc: Foster Medrano CPT CODES: ICD9 CODES: 1. 600.0 Hypertrophy (benign) of prostate 2. 211.3 Benign neoplasm of colon PATIENT NAME: Valerie Jennifersil Sánchez MR#: [id number]
[2018-05-13 09:43] VITALS: BP 131/96; O2SAT 96
== END ==
LOC: OR 06:27
PROVIDERS: ATTEND Internal Medicine Gastroenterology
PROC: 0DB88ZX Excision of Small Intestine, Via Natural or Artificial Opening Endoscopic, Diagnostic (ICD-10-PCS; 2018-05-13)
PROC: 0DB68ZX Excision of Stomach, Via Natural or Artificial Opening Endoscopic, Diagnostic (ICD-10-PCS; 2018-05-13)
PROC: 0DBH8ZX Excision of Cecum, Via Natural or Artificial Opening Endoscopic, Diagnostic (ICD-10-PCS; principal; 2018-05-13 08:45)
PROC: 0DB38ZX Excision of Lower Esophagus, Via Natural or Artificial Opening Endoscopic, Diagnostic (ICD-10-PCS; 2018-05-13 08:45)
DX: D12.0 Benign neoplasm of cecum (principal); K29.50 Unspecified chronic gastritis without bleeding; K29.80 Duodenitis without bleeding; K64.8 Other hemorrhoids; D50.9 Iron deficiency anemia, unspecified; K21.9 Gastro-esophageal reflux disease without esophagitis; I10 Essential (primary) hypertension; Z87.891 Personal history of nicotine dependence; Z86.010 Personal history of colon polyps
CPT/HCPCS: 43239; 45385; 88305; 88312; J2001; J7030

== ENCOUNTER 2020-11-25 20:39 | Emergency (ER) | payer OTHER ==
--- OUTSIDE RECORDS SUMMARY | 2020-11-25 20:44 | XMS REPORT | Continuity of Care Document ---
:1945 Author Organization [facility] t Address [address] [place] [address] Care Team Providers Name Role Phone Sean Medrano Primary Care Physician SYSTEM, NOT IN Attending Clinician Unavailable Abebe Attending Clinician Unavailable Evelyn Silverio Attending Clinician Pcp, Does Not Have A Attending Clinician Ember BRUNO, J Attending Clinician Lab, Fam Pob I Attending Clinician Unavailable Doctor Unassigned, Name Attending Clinician Unavailable Chetan MORENO Attending Clinician Unavailable Shar Macario MD Attending Clinician Bobby Garcia NP Attending Clinician Eulalio MORENO Attending Clinician Unavailable Princess Dugan MD Attending Clinician Princess DUGAN Attending Clinician Unavailable Danielle Jama Attending Clinician Unavailable Duke IBRARA R Attending Clinician Unavailable William Pedraza MD Attending Clinician Chrissy MORENO Attending Clinician Unavailable Shar MACARIO Attending Clinician Unavailable Martín IBARRA Attending Clinician Unavailable MANISH SCHREIBER Attending Clinician Unavailable MANISH SCHREIBER Admitting Clinician Unavailable Payers Payer Name Policy Type Policy Effective Date Expiration Date Sour ce Number [facility] [id number] 2020 [facility] - MEDICARE MGD 00:00:00 - [facility] MEDICARE [id number] 021-Present Problems Condition Condition Condition Status Onset Resolution Last Treating Co mments Source Name Details Category Date Date Treatment Clinician Date Hepatic Hepatic Disease Active 2019-[address] [facility] encephalop encephalop 0-08 [facility] - athy athy 00:00: Medical 00 [place] Angina at Angina at Disease Active 2017-[address] [facility] rest rest 0-30 [facility] 00:[facility]: Medical 00 Center Pancreatic Pancreatic Disease Active 2017-[address] cyst cyst 0-28 [facility] - 00:[facility]: Medical 00 Center Lung Lung Disease Active 2017-[address] [facility] nodule nodule 0-28 [facility] - 00:00: Medical 00 Center Cirrhosis Cirrhosis Disease Active Last [facility] 05[facility]07 [facility] - 00:00: t & Plan: Medical 00 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 Ascites Ascites Disease Active [facility] St 05-07 Assessmen [facility] - 00:00: t & Plan: Medical 00 Ascites Center controlle d with furosemid e amiloride . He has not required a paracente sis since 2013. Continue follow up with hepatolog y. Pre-transp Pre-transp Disease Active [facility] [place] evaluation evaluation 00:00: t & Plan: Medical for for 00 Due to Center chronic chronic his age liver liver he will disease disease be a high risk candidate for liver transplan t. He can proceed with further imaging/t esting and official review at B. Abnormal Abnormal Disease Active [facility] [place] - diagnostic diagnostic 00:00: t & Plan: Medical imaging imaging 00 [facility] 05/2017 had stable liver lesion/ masses. We will obtain records and review with radiology . We ordered MRI triple phase to evaluate for HCC screening and evaluate liver lesions and assess progressi on in size. Screening Screening Disease Active [facility] [place] - malignant malignant 00:00: t & Plan: M edical neoplasm neoplasm [address] , regardles s of etiology, is a risk factor for developme nt of hepatocel lular carcinoma with an annual incidence of 1.5-7%. We recommend surveilla nce for HCC with abdominal imaging and alphafeto protein every 6 months. MRI 05/2017 had stable liver lesion/ masses. We will obtain records and review with radiology . We ordered MRI triple phase to evaluate for HCC screening and evaluate liver lesions and assess progressi on in size. Portal Portal Disease Active Last [facility] hypertensi hypertensi 03-03 Assessmen Adriana - on on 00:00: t & Plan: Medical 00 Portal Center hypertens ion with evidence by esophagea l varices, gastropat hy, ascites, and hypersple nism. 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 EGD 03/2017: small varices, no stigmata of recent bleed, hypertens jabari portal gastropat hy. He did not tolerate medical prophylax is with non-cardi oselectiv e beta blockers due to bradycard ia and fatigue. Recommend repeat screening EGD with possible variceal band ligation based on the size of the varices and risk for hemorrhag e. Exposure Exposure Disease Active [facility] to to 03-03 Assessdeclan Wright - hepatitis hepatitis 00:00: t & Plan: Giorgio negron B B 00 Patient Center reports history of needle stick injury and exposure to hepatitis B. We will check hepatitis B serologie s, hepatitis B DNA PCR Allergies, Adverse Reactions, Alerts This patient has no known allergies or adverse reactions. Family History Family Member Diagnosis Comments Start Date Stop Date Source Natural brother Kidney disease [facility] Natural mother Heart attack [facility] Natural mother Stroke [facility] Pretty - [facility] Social History Social Habit Start Date Stop Date Quantity Comments Source Sex Assigned At MD Mobley on History SDOH [facility] - Alcohol Std Drinks Medica Center History SDOH [facility] - Alcohol Binge Medical [address] ter Tobacco use and 2019-09-15 2019-09-[address] aPdilla kes - exposure 00:00:00 00:00:00 Medical Center Alcohol intake 2019-09-15 2019-09-15 [address] [facility] St Olsen es - 00:00:00 00:00:00 non-drinker of Medical Ce nter alcohol (finding) History SDOH 2018-06-17 2018-06-[address] [facility] - Alcohol Frequency 00:00:00 00:00:00 Medical Center Smoking Status Start Date Stop Date Source Former smoker 2019-09-15 00:00:00 2019-09-15 00:00:[address] [facility] Center Medications Ordered Filled Start Stop Current Ordering Indication Dosage Frequency Signature Comments Components Source Medication Medication Date Date Medication? Clinician (SIG) Name Name AMILoride 2019-08 Yes Alcoholic 5mg QD Take [address] (MIDAMOR) 5 0-07 cirrhosis by mouth [facility] - MG tablet 13:37: of liver daily. Me dical 46 with Center ascites (HCC) amLODIPine 2019-08 Yes Alcoholic 5mg QD Take [address] (NORVASC) 5 0-07 cirrhosis by mouth [facility] - MG tablet 13:37: of liver daily. Me dical 46 with Center ascites (HCC) furosemide 2019-08 Yes Alcoholic 20mg QD Take [address] (LASIX) 20 0-07 cirrhosis by mouth [facility] - MG tablet 13:37: of liver daily. Me dical 46 with Center ascites (HCC) multivitami 2019-08 Yes Alcoholic 1{tbl} QD Take [address] n 0-07 cirrhosis tablet by [facility] - (MULTIVITAM 13:37: of liver mouth M edical IN) per 46 with daily. Center tablet ascites (HCC) cyanocobala 2019-08 Yes Alcoholic 1000ug QD Take 1,[address] min 1000 0-07 cirrhosis mcg by Luke s - MCG tablet 13:37: of liver mouth Me dical 46 with daily. Center ascites (HCC) cholecalcif 2019-08 Yes Alcoholic 400U QD Take [address] yokasta 0-07 cirrhosis Units by [facility] - (VITAMIN 13:37: of liver mouth Medi rebecca D3) 400 46 with daily. Center unit Tab ascites tablet (HCC) pantoprazol 2019-08 Yes 40mg QD Take [address] e 0-07 by mouth [facility] - (PROTONIX) 13:37: daily . Medi rebecca 40 MG 46 Center tablet lactulose 2019-08 Yes Take by [facility] t (CONSTULOSE 0-07 mouth 2 [facility] - ORAL) 13:37: TABLESPOON Medica l 46 S 1-2 Center TIMES DAILY . calcium 2019-08 Yes Q.5D Take by [facility] carbonate 0-07 mouth 2 [facility] - (CALCIUM 13:37: (two) Medical 600 ORAL) 46 times Center daily. eszopiclone 2019-08 Yes 3mg Take [address] (LUNESTA) 1 0-07 by mouth Luke s - MG tablet 13:37: every Medical 46 night as Center needed Take immediatel y before bedtime. . aspirin 81 2019-08 Yes 81mg QD Take [address] MG chewable 0-07 by mouth Luke s - tablet 13:37: daily. Medical 46 Center metoprolol 2019-08 Yes 25mg QD Take [address] (TOPROL-XL) 0-07 by mouth Luke s - 25 MG 24 hr 13:37: daily. Medi rebecca tablet 46 Center oxymetazoli 2019-08- No 2{spray [address] ne (AFRIN) 0-07 10-07 } by Nasal Luke s - 0.05 % 13:37: 00:00 route as Medica l nasal spray 46 :00 needed for Ce nter Congestion . rifAXIMin 2019-08- No 550mg Q.5D Take [address] 550 mg Tab 0-07 10-07 mg by [facility] - 13:37: 00:00 mouth 2 Medical 46 :00 (two) Center times daily. ticagrelor 2017-08- No 90mg Q.5D Take [address] (BRILINTA) 0-31 10-07 tablet (90 [facility] kes - 90 mg Tab 00:00: 00:00 mg total) Me dical tablet 00 :00 by mouth 2 Center (two) times daily. traZODone 2017-08- No 50mg QD Take 1 [facility] t (DESYREL) 0-08 10-07 tablet (50 Pretty es - 50 MG 00:00: 00:00 mg total) Medica l tablet 00 :00 by mouth Center nightly. lactulose Yes 20g Q.5D Take 30 [facility] (CHRONULAC) 8-07 mLs (20 g Pretty es - 20 gram/30 00:00: total) by Me dical mL solution 00 mouth 2 Cente r (two) times daily Take 1-2 times per day as needed to have 2-3 bowel movements daily. Immunizations Ordered Immunization Filled Immunization Date Status Commen ts Source Name Name DTaP 2019-01-23 Com[facility] - 00:[facility]:00 Medical Center Hepatitis A 2019-01-[address] [facility] - [facility] [facility] Hepatitis B 2019-01-23 [address] [facility] - 00:00:00 [facility] Center Vital Signs Vital Name Observation Time Observation Value Comments Source Systolic blood 2020-05-25 13:35:00 159 mm[Hg] [facility] pressure [facility] Diastolic blood 2020-05-25 13:35:00 70 mm[Hg] [facility] S t [facility] Heart rate 2020-05-25 13:35:00 57 /min [facility] Body temperature 2020-05-25 13:35:00 36 Jada [facility] Respiratory rate 2020-05-25 13:35:00 18 /min [facility] Body height 2020-05-25 13:35:00 167.6 cm [facility] Body weight 2020-05-25 13:35:00 83.689 kg [facility] BMI 2020-05-25 13:35:00 29.78 kg/m2 [facility] Oxygen saturation in 2020-05-25 13:35:00 97 /min [facility] Arterial blood by Medical Ce nter Pulse oximetry Procedures Procedure Date / Time Performed Performing Clinician [facility] e MR ABDOMEN WITH & WITHOUT 2020-10-25 10:48:00 Pappas, Line [facility] - IV CONTRAST [facility] ALPHA FETOPROTEIN, L3 2020-08-03 11:57:00 Pappas, Line [facility] - PERCENT [facility] DCP (ANTHONY GAMMA CARBOXY 2020-08-03 11:57:00 Pappas, Line [facility] S t [facility] [place] - PROTHROMBIN) [facility] MR ABDOMEN WITH & WITHOUT 2020-06-21 13:15:00 Daniel Macario CH [facility] IV CONTRAST [facility] BASIC METABOLIC PANEL (7) 2020-05-25 15:13:00 Pappas, Line CH I [facility] HEPATIC FUNCTION PANEL 2020-05-25 15:13:00 Pappas, Line [facility] CBC W/PLT COUNT & AUTO 2020-05-25 15:13:00 Pappas, Line [facility] PROTHROMBIN TIME/INR 2020-05-25 15:13:00 Pappas [facility] ALPHA FETOPROTEIN (AFP), 2020-05-25 15:13:00 Pappas [facility] TUMOR MARKER [facility] BILIRUBIN, DIRECT 2020-04-14 11:14:00 Ankita Pedraza [facility] CBC W/PLT COUNT & AUTO 2020-04-14 11:14:00 Ankita Pedraza [facility] COMPREHENSIVE METABOLIC 2020-04-14 11:14:00 Ankita Pedraza [facility] PROTHROMBIN TIME/INR 2020-04-14 11:14:00 Ankita Pedraza [facility] ETHANOL 2020-04-14 11:14:00 Ankita Pedraza [facility] PROTHROMBIN TIME/INR 2020-04-08 15:20:00 JeannieDaniel hahn [facility] COMPREHENSIVE METABOLIC 2020-04-08 15:20:00 Daniel Macario [facility] CBC W/PLT COUNT & AUTO 2020-04-08 15:20:00 Daniel Macario [facility] BILIRUBIN, DIRECT 2020-04-08 15:20:00 Daniel Macario [facility] MR ABDOMEN WITH & WITHOUT 2020-03-01 12:40:00 Ankita Pedraza [facility] CONTRAST [facility] POCT-CREATININE 2020-03-01 12:08:00 Daniel Macario [facility] PROTHROMBIN TIME/INR 2020-01-13 12:02:00 Daniel Macario [facility] COMPREHENSIVE METABOLIC 2020-01-13 12:02:00 Daniel Macario [facility] CBC W/PLT COUNT & AUTO 2020-01-13 12:02:00 [facility] Mac[facility] DIFFERENTIAL [facility] Center BILIRUBIN, DIRECT 2020-01-13 12:02:[address] [facility] - [facility] Center ALPHA FETOPROTEIN (AFP), 2020-01-13 12:02:00 [facility] Mac[facility] TUMOR MARKER [facility] Center PLATELET ESTIMATION 2020-01-13 12:02:[address] [facility] Center Plan of Care Planned Activity Planned Date Details Comments Source Future Scheduled 2029-01-23 DTAP/TDAP/TD VACCINES [facility] - Test 00:00:00 (2 - Tdap) [code = Medical C enter DTAP/TDAP/TD VACCINES (2 - Tdap)] Future Scheduled 2021-04-[address] [facility] - Test 00:00:00 (Season Ended) [code = Medic al Center INFLUENZA VACCINE (Season Ended)] Future Scheduled 2020-08-[address] [facility] - Test 00:00:00 (12+) [code = Medical Center DEPRESSION SCREENING (12+)] Future Scheduled 2019-08-[address] [facility] - Test 00:00:00 WELLNESS (YEAR 2 or Medical Center FIRST YEAR if no IPPE) [code = MEDICARE ANNUAL WELLNESS (YEAR 2 or FIRST YEAR if no IPPE)] Future Scheduled 2010 PNEUMOCOCCAL 65+ YRS [facility] - Test 00:00:00 (1 of 1 - Medical Center [id number]) [code = PNEUMOCOCCAL 65+ YRS (1 of 1 - [id number] PCV13)] Future Scheduled 1995 SHINGLES VACCINES ([address] [facility] - Test 00:00:00 of 2) [code = SHINGLES Medic al Center VACCINES (1 of 2)] Future Scheduled [address] [facility] - Test 00:00:00 [facility] colon (procedure) [code = 229034600] Encounters Start End Encounter Admission Attending Care Care Encounter Source Date/Time Date/Time Type Type Clinicians Facility Department ID 2020-05-27 Outpatient SYSTEM, RON VELASQUEZ [id number] 10:39:17 PROVIDER Itz o n 2020-09-25 2020-09-25 Telephone Pcp, SEAN [id number] 00:00:00 00:00:00 Patient ALPESH [id number] Does Not HOSPITAL [id number] Have A [id number] 2020-09-20 2020-09-20 Telephone Ember, [facility] [id number] 00:00:00 00:00:00 Bhavya Amaya [id number] [place] [id number] Professio [id number] nal 044 Building 2020-09-15 2020-09-15 Laboratory Lab, [facility] [id number] 18:27:04 18:47:04 Only Fam Pob I Health [id number] [place] [id number] Professio [id number] nal 044 Office Building One 2020-09-15 2020-09-15 Letter Doctor SEAN [id number] 00:00:00 00:00:00 (Out) Unassigned, ALPESH [id number] [place] .[id number] [id number] Results Test Test Test Comments Results Result Source Description Time Comments MR, ABDOMEN, 2020-10- DR Joseph is WITH 10 Self 18:46:00 ReferredUnlisted Reason for Exam - [facility] - Click Yes and Enter MEDICAL CENTERName: Reason JAYCEE CARLSON Below->YesUnlisted : Reason for 1945 Exam->Cirrhosis, Sex: liver lesion M *FINAL REPORT MR, ABDOMEN, WITH \\T\\ WITHOUT CONTRAST HISTORY: Unlisted Reason for ExamCirrhosis, liver lesion COMPARISON: Abdomen MRI on 06/21/2020 TECHNIQUE: MRI of the abdomen was performed with and without gadolinium. Multiplanar, multisequence images were obtained before and following intravenous injection of intravenous gadolinium contrast. FINDINGS: Hepatobiliary Findings:Contour and signal intensity: Nodular, cirrhotic liver Focal treated observations: None. Focal observations satisfying imaging criteria for HCC (LI-RADS 5):- 15 mm T1 hypo-/T2 isointense observation in segment III/IVb exhibits arterial phase hyperenhancement (arterial phase axial image 51, most notable on the subtraction series) with suggestion of central washout and pseudocapsule (most notable on subtraction series). Focal observations at least mildly suspicious for HCC (LI-RADS 4 or 3):- There are multiple additional scattered arterially enhancing observations throughout both lobes of the liver which are sub 10 mm without associated washout or pseudocapsule, LR-3 (for example a 5 mm lesion in segment 5, arterial phase subtraction image 69).- Innumerable intrinsically T1 hyperintense regenerative nodules.- The previously noted two subcentimeter regions of peripheral enhancement in segments IV and II are not as well visualized on this exam. Other focal observations (LI-RADS 2 or 1):- Several T2 hyperintense nonenhancing observations are scattered throughout predominantly the right hepatic lobe. Several have thin internal septations (LR-1). Portal vein: Patent.Arterial anatomy: Conventional.Gallbla dder and bile ducts: Cholelithiasis. Minimal gallbladder wall thickening is likely secondary to chronic liver disease. No intrahepatic or extrahepatic biliary dilation. Spleen: Mild splenomegaly measuring 13.1 cm.Varices: Paraesophageal varices. Extensive perisplenic varices with splenorenal shunt.Ascites: Small ascites Additional Findings:Lung bases: Small left and trace right pleural effusions. Pancreas: Numerous stable T2 hyperintense cystic lesions, likely sidebranch IPMN, are scattered throughout the pancreatic parenchyma. The largest cluster measures 2.9 cm at the pancreatic neck and 1.4 cm at the uncinate process, no convincing change from 06/21/2020. These cystic lesions are not associated with ductal dilation or gland atrophy.Adrenals: No adrenal nodules.Kidneys and ureters: No hydronephrosis or solid renal masses.Bowel: Unremarkable Lymph nodes: Scattered nonspecific prominent but subcentimeter nodes in the retroperitoneum and at the bridger hepatis.Peritoneum: Mild mesenteric edema.Vessels: Circumaortic left renal vein. Moderate atherosclerotic stenosis.Abdominal wall: Mild predominantly dependent subcutaneous soft tissue edema. Bilateral gynecomastia.Bones: No focal suspicious osseous lesions. IMPRESSION: 1.The 1.5 cm LR-5 observation in segment III/IVb is similar to minimally increased in size (subthreshold growth) since prior exam. 2.No other definite or probable HCC (LI-RADS 4 or LI-RADS 5). Two questionable areas of peripheral enhancement in segments IV and II seen on prior exam are not seen today. 3.Cirrhosis, sequelae of portal hypertension including mild splenomegaly, trace ascites, and paraesophageal varices. 4.Cholelithiasis. Gallbladder wall thickening, unchanged, likely related to chronic liver disease. 5.Cystic lesions in the pancreas, no convincing change, possibly sidebranch IPMN's. Signed: India Vasquezeport Verified Date/Time: 10/26/2020 18:46:09 Reading Location: [address] Radiology Reading Room abdomen 2020-10- Interface, External [facility] with/without IV 10 Ris In - 10/26/2020 [facility] - contrast 18:46:00 6:48 PM CSTFINAL Medical REPORT PATIENT ID: Center [id number] MR, ABDOMEN, WITH \\T\\ WITHOUT CONTRAST HISTORY: Unlisted Reason for ExamCirrhosis, liver lesion COMPARISON: Abdomen MRI on 06/21/2020 TECHNIQUE: MRI of the abdomen was performed with and without gadolinium. Multiplanar, multisequence images were obtained before and following intravenous injection of intravenous gadolinium contrast. FINDINGS: Hepatobiliary Findings:Contour and signal intensity: Nodular, cirrhotic liver Focal treated observations: None. Focal observations satisfying imaging criteria for HCC (LI-RADS 5):- 15 mm T1 hypo-/T2 isointense observation in segment III/IVb exhibits arterial phase hyperenhancement (arterial phase axial image 51, most notable on the subtraction series) with suggestion of central washout and pseudocapsule (most notable on subtraction series). Focal observations at least mildly suspicious for HCC (LI-RADS 4 or 3):- There are multiple additional scattered arterially enhancing observations throughout both lobes of the liver which are sub 10 mm without associated washout or pseudocapsule, LR-3 (for example a 5 mm lesion in segment 5, arterial phase subtraction image 69).- Innumerable intrinsically T1 hyperintense regenerative nodules.- The previously noted two subcentimeter regions of peripheral enhancement in segments IV and II are not as well visualized on this exam. Other focal observations (LI-RADS 2 or 1):- Several T2 hyperintense nonenhancing observations are scattered throughout predominantly the right hepatic lobe. Several have thin internal septations (LR-1). Portal vein: Patent.Arterial anatomy: Conventional.Gallbla dder and bile ducts: Cholelithiasis. Minimal gallbladder wall thickening is likely secondary to chronic liver disease. No intrahepatic or extrahepatic biliary dilation. Spleen: Mild splenomegaly measuring 13.1 cm.Varices: Paraesophageal varices. Extensive perisplenic varices with splenorenal shunt.Ascites: Small ascites Additional Findings:Lung bases: Small left and trace right pleural effusions. Pancreas: Numerous stable T2 hyperintense cystic lesions, likely sidebranch IPMN, are scattered throughout the pancreatic parenchyma. The largest cluster measures 2.9 cm at the pancreatic neck and 1.4 cm at the uncinate process, no convincing change from 06/21/2020. These cystic lesions are not associated with ductal dilation or gland atrophy.Adrenals: No adrenal nodules.Kidneys and ureters: No hydronephrosis or solid renal masses.Bowel: Unremarkable Lymph nodes: Scattered nonspecific prominent but subcentimeter nodes in the retroperitoneum and at the bridger hepatis.Peritoneum: Mild mesenteric edema.Vessels: Circumaortic left renal vein. Moderate atherosclerotic stenosis.Abdominal wall: Mild predominantly dependent subcutaneous soft tissue edema. Bilateral gynecomastia.Bones: No focal suspicious osseous lesions. IMPRESSION: 1.The 1.5 cm LR-5 observation in segment III/IVb is similar to minimally increased in size (subthreshold growth) since prior exam. 2.No other definite or probable HCC (LI-RADS 4 or LI-RADS 5). Two questionable areas of peripheral enhancement in segments IV and II seen on prior exam are not seen today. 3.Cirrhosis, sequelae of portal hypertension including mild splenomegaly, trace ascites, and paraesophageal varices. 4.Cholelithiasis. Gallbladder wall thickening, unchanged, likely related to chronic liver disease. 5.Cystic lesions in the pancreas, no convincing change, possibly sidebranch IPMN's. Signed: India Vasquez Verified Date/Time: 10/26/2020 18:46:09 Reading Location: [address] Radiology Reading Room Alpha fetoprotein, L3 percent ([facility]) 2020-08-10 1 6:30:00 Test Item Value Reference Range Interpretation Comme nts AFP, Serum, Tumor 7.2 ng/mL 1.6-4.5 H Marker (test code = 1744754) AFP-L3%, Serum (test 10.1 % 0.5-9.9 H The va crocheter-total analysis code = 7598016) system ([employer]) employs microchipcapill re electrophoresis to quantitatively measure AFP andAFP-L3% by i mmunochemical techniques. The assay principleinvolv es DNA-coupled antibodies and dye labeled antibodies,whic h react with proteins in liq uid phase within themicrochannel s. Both analytes are quantified usinglaser-gauri vishal fluorescence. I nstrument and associatedreage nts are supplied by [employer] [facility], [place], [place]. Patien ts with elevated AFP-L3% values (>=10%) have beenshown to oliva ve an increased risk of develop ing hepatocellularc arcinoma (HCC). In a selected g roup of patients, the r iskof developing HCC was 48.8% w ith an elevated AFP-L3% and was 7.0% with a negative AFP-L3 % result. Limitations of Procedure: 1. The AFP-L3% angelica ue is not calculated when the AFP-B4aicxyjtvx tion is below 0.3 ng/mL. In s uch cases the AFP-L3%result f ield will indicate "NO VA LUE DETERMINED" 2.Heterophilic antibodies in human serum can react with theimmunoglobul ins included in the assay compo nents causinginterfer ence with in vitro immunoass ays. Samples frompatients ro utinely exposed to animals or a nimal serumproducts c an demonstrate this type of in terference and canpotentially cause an anomalous resul t. The [employer] uTAS Systemhas been formulated to minimize the ri sk of theinterference ; however, potential inter actions between raresera and in gredients can occur. 3. For d iagnostic purposes,the re sults obtained from this assay should always be usedand inte rpreted in conjunction wit h clinical examination,pat ient medical history, and ot her findings. 4. Pregnancycan ca use high values of AFP-L3% and AFP is notinterpretabl e in females. 5. AFP producing tumorsother sharonda n HCC can show high values of AFP-L3% and AFP. 6.Samples from patients having acute hepatitis and fulminanthepati tis can show high values of AFP-L3% and AFP. 7. It isrecomme nded that this assay be used i n conjunction withimaging shawnee dies for clinical diagno sis. 8. Liver diseasescaused by other etiologies such as alcoholic liver disease,h emachromatosis, Jey's diseas e, autoimmune hepatitis andst eatohepatisis have not been s tudied with the assay. 9. Theas say is linear for AFP concent ration of 0.3 to 1000 ng/mL.10. Values obtained with different assay methods or kitscannot be u sed interchangeably . LANI (test code = LANI) FASTING:NOFASTING: NO RAC (test code = RAC) Performing Organization Information: Site ID: EZ Name: MetaNotes/[facility] Address: [address] [place] [id number] Director: Naz Taylor MD,PhD,LINN Lab Interpretation Abnormal (test code = 40396-6) [facility] (ANTHONY GAMMA CARBOXY PROTHROMBIN)2020-08-10 16:30:00 Test Item Value Reference Interpretation Comments Range DCP (test 1.5 ng/mL <7.5 The [facility] [employer] [facility] D CP code = Immunological T est System is 2509) a clinicaldevic e used to quantitatively measure, by immunochemicalt echmarlineque, fpe-hbbtr-mwgag xy-prothrombi n (DCP) in seru m. Theassay uses DNA-coupl ed antibodies and dye labeled antibodies, which react wit h proteins in liquid phase wi thinthe microchannels. Both analytes are quantified usinglaser-gauri vishal fluorescence. I nstrument and associatedreage nts are supplied by [employer] [place], [place], [place]. DCP levels increase in patients with hepatocell ularcarcinoma (HCC) and liver cirrhosis. DCP does not co rrelatewith AFP/AFPL3% but appears to be a complementary assay forassessing, r isk of developing HCC. In a selected group ofpatients, the risk of dev eloping HCC was 36.5% with anelevated DCP result and was 7.6% with a negative DCP result. Limitations of Procedure: 1. Heterophilic an tibodies in human serum can react with theimmunoglobul ins included in the assay co mponents causinginterfer ence with in vitro immunoass ays. Sample frompatients ro utinely exposed to anim als or animal serumproducts c an demonstrate thi s type of interferencepot entially causing an anom alous result. The [facility]as been formulated to m inimize the risk of interference;ho wever, potential inter actions between rare se ra andingredients can occur. 2. For diagnostic purposes, theresults obta ined from this assay shou ld always be used andinterpr eted in conjunction wit h clinical examination,pat ient medical history,and oth er findings. 3. It isrecomme nded that this assay be u sed in conjunction wit himaging studies for cli nical diagnosis. 4. D CP producingtumors other than HCC can show el evated values of DCP. 5.Liver disease caused by other etiologies such as alcohol icliver disease, hemach romatosis, Jey's diseas e, autoimmunehepat itis and steatohepatitis have not been studied wi ththis assay. 6. Medication c ontaining vitamin K prepa rationsmay cause a negativ e bias on the DCP values. 7. Medicationconta ining vitamin K antagonists o r antibiotic may cause aposi tive bias on the DCP values. 8. Values obtained withdi fferent assay methods or kits cannot be usedinterchange ably. LANI (test FASTING:NOFASTING: code = NO LANI) RAC (test Performing code = Organization RAC) Information: Site ID: EZ Name: [facility], Address: [address] [place] [address] Director: Naz Taylor MD,PhD,LINN [facility] HospitalMR, ABDOMEN, [id number] 08:55:00DR RITCHIE Pt is Self Referred Include Abdominal Vessels [facility] 1945 Sex: MFINAL REPORT TECHNIQUE: MRI of the abdomen WITHOUT and WITH intraven ous contrast. INDICATION: liver transplant waiting list, screening for cancer. COMPARISON: MRI from 03/01/2020. FINDINGS: LOWER THORAX: Unremarkable. LIVER: Nodular, cirrhotic liver.Liver lesions as follow:*The lesion in segment III/IVb which previously arterially enhanced, washed out, and forms a pseudocapsule measures 1.2 cm on precontrast imaging with likely peripheral enhancement but no central enhancement. There is still washout but no definite pseudocapsule. This proves measure 1.3 cm.*There are multiple lesions in the liver which are hyperintense on T1-weighted imaging but do not definitely enhance. This could be due to differences in the phase of contrast between today's study and the prior study. There still most concerning for dysplastic nodules*There are two questionable areas of peripheral enhancement in segment IV on axial arterial phase image 85 which measures 1 cm and segment II on axial arterial phase image 85 which measures 0.8 cm. The cyst in the liver are similar to the prior examination. BILIARY: Stones in the gallbladder measure up to 0.9 cm. No biliary ductal dilatation or filling defect.SPLEEN: 13.1 cm splenomegaly.PANCREAS: There are several cystic lesions in the pancreas which are similar to the prior examination and measure up to 2.4 cm in the pancreatic neck. ADRENALS: No adrenal nodules.KIDNEYS/URETERS: No hydronephrosis or solid mass lesions. PERITONEUM/RETROPERITONEUM: Trace perihepatic ascites.LYMPH NODES: No lymphadenopathy.VESSELS: Conventional hepatic arterial anatomy. The main portal vein is patent and measures 0.9 cm in diameter. Small paraesophageal airspace. Circumaortic left renal vein. Large splenorenal shunt. GI TRACT: No distention or wall thickening. BONES AND SOFT TISSUES: Bilateral gynecomastia. IMPRESSION: 1.This examination was obtained diana slightly different phase of contrast than the prior examination, and no arterial phase hyperenhancement was seen in the liver lesions. This is most likely due to the differences in phase of contrast. The previously seen LI-RADS 5 lesion in segment III/IVb is unchanged in size and measures 1.2 cm. 2.There are two questionable areas of peripheral enhancement in segments IV and II. However, these werepreviously seen to be siderotic nodules, and this is most likely a siderotic nodule surrounded by fibrosis. Close attention on follow-up examinations is recommended. 3.There were multiple previously seen arterially enhancing liver lesions. On today's examination, they are hyperintense on T1-weighted imaging but do not definitely arterially enhance. This may be due to the phase of contrast. There is cirrhosis with sequelae of portal hypertension, including small paraesophageal varices. 4.Cholelithiasis without acute cholecystitis. 5.Cystic lesions in the pancreas are unchanged from the prior examination and measure up to 2.4 cm in the pancreatic neck. Signed: Venus Thapa MDRepfreeman orthopaedics & sports medicine Verified Date/Time: 06/22/2020 08:55:36 Reading Location: [facility] C013Y CT Body Reading Room Alpha fetoprotein (AFP), tumor [id number] 17:30:00 Test Item Value Reference Range Interpretation Comments Alpha-Fetoprotein (test code 10.3 ng/mL <10.0 H = 1834-1) LANI (test code = LANI) Sr. Strategic Sourcing Manager ID - BS Lab Interpretation (test Abnormal code = 73812-8) [facility] HospitalALPHA FETOPROTEIN (AFP), TUMOR [id number] 17:30:00 Test Item Value Reference Range Interpretation Comments ALPHA-FETOPROTEIN (BEAKER) (test 10.3 ng/mL <10.0 H code = 1094) Sr. Strategic Sourcing Manager ID - BSBasic Metabolic [id number] 16:48:00 Test Item Value Reference Range Interpretation Comments Sodium (test code = 137 meq/L 857-180 6842-2) Potassium (test code 3.9 meq/L 3.5-5.1 = 2823-3) Chloride (test code = 106 meq/L 98-107 2075-0) CO2 (test code = 25 meq/L 22-29 2028-9) BUN (test code = 16 mg/dL 7-21 3094-0) Creatinine (test code 0.93 mg/dL 0.57-1.25 = 2160-0) Glucose (test code = 116 mg/dL 70-105 H 2345-7) Calcium (test code = 9.0 mg/dL 8.4-10.2 96985-8) EGFR (test code = 79 mL/min/1.73 [place] [address]-6) NOT ACCURATE CREATININE CLEARANCE IN PREDICTING GLOMERULAR FILTRATION RATE . ESTIMATED GFR I S NOT APPLICABLE FOR DIALYSIS PATIENTS. LANI (test code = LANI) Sr. Strategic Sourcing Manager ID - BSSpecimen moderately icteric Lab Interpretation Abnormal (test code = 15159-7) [facility] HospitalHepatic function [id number] 16:48:00 Test Item Value Reference Range Interpretation Comments Protein, Total (test 7.9 See_Comment [Autom ated code = 2885-2) message] The system which generated this result transmitted reference range : 6.0 - 8.3 gm/dL . The reference range was not used to interpr et this result as normal/abnormal . Albumin (test code = 2.9 g/dL 3.5-5 L 59043-1) Total Bilirubin (test 7.7 mg/dL 0.2-1.2 H code = 1974-2) Bilirubin, Direct 3.7 mg/dL 0.1-0.5 H (test code = 1967-7) Alkaline Phosphatase 162 U/L 40-150 H (test code = 6768-6) AST (test code = 83 U/L 5-34 H 1920-8) ALT (test code = 41 U/L 6-55 1742-6) LANI (test code = LANI) Sr. Strategic Sourcing Manager ID - BSSpecimen moderately icteric Lab Interpretation Abnormal (test code = 41981-7) [facility] HospitalBASI METABOLIC [id number] 16:48:00 Test Item Value Reference Range Interpretation Comments SODIUM (BEAKER) 137 meq/L 136-145 (test code = 381) POTASSIUM (BEAKER) 3.9 meq/L 3.5-5.1 (test code = 379) CHLORIDE (BEAKER) 106 meq/L 98-107 (test code = 382) CO2 (BEAKER) (test 25 meq/L 22-29 code = 355) BLOOD UREA NITROGEN 16 mg/dL 7-21 (BEAKER) (test code = 354) CREATININE (BEAKER) 0.93 mg/dL 0.57-1.25 (test code = 358) GLUCOSE RANDOM 116 mg/dL 70-105 H (BEAKER) (test code = 652) CALCIUM (BEAKER) 9.0 mg/dL 8.4-10.2 (test code = 697) EGFR (BEAKER) (test 79 mL/min/1.73 ESTIMA MONIQUE GFR IS code = 1092) sq m NOT ACCURATE CREATININE CLEARANCE IN PREDICTING GLOMERULAR FILTRATION RATE . ESTIMATED GFR I S NOT APPLICABLE FOR DIALYSIS PATIEN TS. Sr. Strategic Sourcing Manager ID - BSSpecimen moderately ictericHEPATIC FUNCTION [id number] 16:48:00 Test Item Value Reference Range Interpretation Comments TOTAL PROTEIN (BEAKER) (test code = 7.9 gm/dL 6.0-8.3 770) ALBUMIN (BEAKER) (test code = 1145) 2.9 g/dL 3.5-5.0 L BILIRUBIN TOTAL (BEAKER) (test code 7.7 mg/dL 0.2-1.2 H = 377) BILIRUBIN DIRECT (BEAKER) (test 3.7 mg/dL 0.1-0.5 H code = 706) ALKALINE PHOSPHATASE (BEAKER) (test 162 U/L 40-150 H code = 346) AST (SGOT) (BEAKER) (test code = 83 U/L 5-34 H 353) ALT (SGPT) (BEAKER) (test code = 41 U/L 6-55 347) Sr. Strategic Sourcing Manager ID - BSSpecimen moderately ictericPro-time/[id number] 16:24:00 Test Item Value Reference Interpretation Comments Range Protime (test code = 19.2 See_Comment H [Autom ated 5902-2) message] The system which generated this result transmitted reference range : 11.9 - 14.2 seconds. The reference range was not used to interpret this result as normal/abnormal . INR (test code = 1.66 See_Comment [Automated 6301-6) message] The system which generated this result transmitted reference range : <=5.90. The reference range was not used to interpret this result as normal/abnormal . LANI (test code = Effective 01/14/2019: LANI) PT Reference Range ChangeNew: 11.9-14.2 Previous: 11.7-14.7 RECOMMENDED COUMADIN/WARFARIN INR THERAPY RANGESSTANDARD DOSE: 2.0-3.0 Includes: PROPHYLAXIS for venous thrombosis, systemic embolization; TREATMENT for venous thrombosis and/or pulmonary embolus.HIGH RISK: Target INR is 2.5-3.5 for patients wiht mechanical heart valves. Lab Interpretation Abnormal (test code = 81188-3) [facility] HospitalCBC with platelet count + automated [id number] 16:24:00 Test Item Value Reference Range Interpretation Comments WBC (test code = 6690-2) 4.0 See_Comment [A utomated message] The system [employer] generated this result transmitted ref erence range: 3.5 - 10 .5 K/L. The refe rence range was not u sed to interpret this result as normal/abnor mal. RBC (test code = 789-8) 3.48 See_Comment L [Au tomated message] The system [employer] generated this result transmitted ref erence range: 4.63 - 6 .08 M/L. The refe rence range was not u sed to interpret this result as normal/abnor mal. MCHC (test code = 786-4) 34.3 See_Comment L [A utomated message] The system [employer] generated this result transmitted ref erence range: 32.3 - 3 6.5 GM/DL. The refe rence range was not u sed to interpret this result as normal/abnor mal. Hematocrit (test code = 38.8 % 40.1-51 L 4544-3) MCV (test code = 787-2) 111.5 fL 79-92.2 H MCH (test code = 785-6) 38.2 pg 25.7-32.2 H RDW (test code = 788-0) 14.9 % 11.6-14.4 H Platelets (test code = 62 See_Comment L [Aut omated message] 777-3) The system [employer] generated this result transmitted ref erence range: 150 - 45 0 K/CU MM. The referen ce range was not u sed to interpret this result as normal/abnor mal. MPV (test code = 11.8 fL 9.4-12.4 66875-5) nRBC (test code = 413) 0 See_Comment [Aut omated message] The system [employer] generated this result transmitted ref erence range: 0 - 0 /1 00 WBC. The refere nce range was not u sed to interpret this result as normal/abnor mal. % Neutros (test code = 48 % 429) % Lymphs (test code = 33 % 430) % Monos (test code = 13 % 431) % Eos (test code = 432) 5 % % Baso (test code = 437) 1 % # Neutros (test code = 1.90 See_Comment [Aut omated message] 670) The system [employer] generated this result transmitted ref erence range: 1.78 - 5 .38 K/L. The refe rence range was not u sed to interpret this result as normal/abnor mal. # Lymphs (test code = 1.32 See_Comment [Auto mated message] 414) The system [employer] generated this result transmitted ref erence range: 1.32 - 3 .57 K/L. The refe rence range was not u sed to interpret this result as normal/abnor mal. # Monos (test code = 0.52 See_Comment [Autom ated message] 415) The system [employer] generated this result transmitted ref erence range: 0.30 - 0 .82 K/L. The refe rence range was not u sed to interpret this result as normal/abnor mal. # Eos (test code = 416) 0.19 See_Comment [Au tomated message] The system [employer] generated this result transmitted ref erence range: 0.04 - 0 .54 K/L. The refe rence range was not u sed to interpret this result as normal/abnor mal. # Baso (test code = 417) 0.02 See_Comment [A utomated message] The system [employer] generated this result transmitted ref erence range: 0.01 - 0 .08 K/L. The refe rence range was not u sed to interpret this result as normal/abnor mal. Immature 0 % 0-1 Granulocytes-Relative (test code = 2801) Lab Interpretation (test Abnormal code = 97017-8) [facility] W/PLT COUNT & AUTO [id number] 16:24:00 Test Item Value Reference Range Interpretation Comments WHITE BLOOD CELL COUNT (BEAKER) 4.0 K/ L 3.5-10.5 (test code = 775) RED BLOOD CELL COUNT (BEAKER) 3.48 M/ L 4.63-6.08 L (test code = 761) HEMOGLOBIN (BEAKER) (test code = 13.3 GM/DL 13.7-17.5 L 410) HEMATOCRIT (BEAKER) (test code = 38.8 % 40.1-51.0 L 411) MEAN CORPUSCULAR VOLUME (BEAKER) 111.5 fL 79.0-92.2 H (test code = 753) MEAN CORPUSCULAR HEMOGLOBIN 38.2 pg 25.7-32.2 H (BEAKER) (test code = 751) MEAN CORPUSCULAR HEMOGLOBIN CONC 34.3 GM/DL 32.3-36.5 (BEAKER) (test code = 752) RED CELL DISTRIBUTION WIDTH 14.9 % 11.6-14.4 H (BEAKER) (test code = 412) PLATELET COUNT (BEAKER) (test code 62 K/CU MM 150-450 L = 756) MEAN PLATELET VOLUME (BEAKER) 11.8 fL 9.4-12.4 (test code = 754) NUCLEATED RED BLOOD CELLS (BEAKER) 0 /100 WBC 0-0 (test code = 413) NEUTROPHILS RELATIVE PERCENT 48 % (BEAKER) (test code = 429) LYMPHOCYTES RELATIVE PERCENT 33 % (BEAKER) (test code = 430) MONOCYTES RELATIVE PERCENT 13 % (BEAKER) (test code = 431) EOSINOPHILS RELATIVE PERCENT 5 % (BEAKER) (test code = 432) BASOPHILS RELATIVE PERCENT 1 % (BEAKER) (test code = 437) NEUTROPHILS ABSOLUTE COUNT 1.90 K/ L 1.78-5.38 (BEAKER) (test code = 670) LYMPHOCYTES ABSOLUTE COUNT 1.32 K/ L 1.32-3.57 (BEAKER) (test code = 414) MONOCYTES ABSOLUTE COUNT (BEAKER) 0.52 K/ L 0.30-0.82 (test code = 415) EOSINOPHILS ABSOLUTE COUNT 0.19 K/ L 0.04-0.54 (BEAKER) (test code = 416) BASOPHILS ABSOLUTE COUNT (BEAKER) 0.02 K/ L 0.01-0.08 (test code = 417) IMMATURE GRANULOCYTES-RELATIVE 0 % 0-1 PERCENT (BEAKER) (test code = 2801) PROTHROMBIN TIME/[id number] 16:24:00 Test Item Value Reference Range Interpretation Comments PROTIME (BEAKER) (test code = 19.2 seconds 11.9-14.2 H 759) INR (BEAKER) (test code = 370) 1.66 <=5.90 Effective 01/14/2019: PT Reference Range ChangeNew: 11.9-14.2 Previous: 11.7- 14.7RECOMMENDED COUMADIN/WARFARIN INR THERAPY RANGESSTANDARD DOSE: 2.0-3.0 Includes: PROPHYLAXIS for venous thrombosis, systemic embolization; TREATMENT for venous thrombosis and/or pulmonary embolus.HIGH RISK: Target INR is2.5-3.5 for patients wiht mechanical heart valves.Comprehensive metabolic panel 2020-04-16 04:57:00 Test Item Value Reference Interpretation Comments Range Glucose (test code 117 mg/dL 65-99 H Fasting = ) reference inter angelica For someone wit hout known diabetes, a glucose valuebe tween 100 and 125 mg/ dL is consistent withprediabetes and should be confi rmed with afollow-up test. BUN (test code = 13 mg/dL -20101220) Creatinine (test 0.87 mg/dL 0.7-1.18 For patient s >49 code = 6887139) years of age , the reference limit for Creatinine is approximately 1 3% higher for peopleidentifie d as -Traci n. eGFR If NonAfricn 85 See_Comment [Automate d message] Am (test code = The system [facility] 1767898) generated this result transmit monique reference range : > OR = 60 mL/min/1.73m2. The reference range was not used to interpret this result as normal/abnormal . eGFR If Africn Am 99 See_Comment [Automate d message] (test code = The system [employer] ) generated this result transmit monique reference range : > OR = 60 mL/min/1.73m2. The reference range was not used to interpret this result as normal/abnormal . BUN/Creatinine NOT APPLICABLE See_Comment [Automated message] Ratio (test code = The [employer] which ) generated this result transmit monique reference range : 6 - 22 (calc). The reference range was not used to interpret this result as normal/abnormal . Sodium (test code = 135 mmol/L 135-501 6879568) Potassium, Serum 4.0 mmol/L 3.5-5.3 (test code = 20110104) Chloride (test code 104 mmol/L 98-110 = 6221443) Carbon Dioxide, 27 mmol/L 20-32 Total (test code = ) Calcium, Serum 8.7 mg/dL 8.6-10.3 (test code = 2790965) Protein, Total, 6.7 g/dL 6.1-8.1 Serum (test code = 20101224) Albumin (test code 2.7 g/dL 3.6-5.1 L = 9928316) GLOBULIN (QUEST) 4.0 See_Comment H [Automated message] (test code = The system [employer] ) generated this result transmit monique reference range : 1.9 - 3.7 g/dL (rebecca c). The reference r robert was not used to interpret this result as normal/abnormal . Albumin Globulin 0.7 See_Comment L [Automated message] Ratio (test code = The [employer] which 9-0) generated this result transmit monique reference range : 1.0 - 2.5 (calc). T he reference range was not used to interpret this result as normal/abnormal . Bilirubin, Total 8.6 mg/dL 0.2-1.2 H (test code = 20101226) Alkaline 187 U/L 35-144 H Phosphatase, S (test code = 6768-6) AST (SGOT) (test 88 U/L 10-35 H code = 2134083) ALT (SGPT) (test 39 U/L 9-46 code = 0874492) RAC (test code = Performing RAC) Organization Information: Site ID: RGA Name: [facility] Lab Address: [address] [place] [address] Director: Mani Madrid Lab Interpretation Abnormal (test code = 75619-2) [facility] HospitalEthanol2020-08-29 04:57:00 Test Item Value Reference Interpretation Comments Range Alcohol Metabolites POSITIVE See_Comment A See Note 1 (test code = [Automated mess age] ) The system [employer] generated this result transmit monique reference range : <500 ng/mL. The reference range was not used to interpret this result as normal/abnormal . Ethyl Glucuronide 729 ng/mL <500 H See Note 1 (ETG) (test code = 8694433) Ethyl Sulfate (ETS) 404 ng/mL <100 H See Note 1 (test code = 8050526) Comment (test code See Note 2 Note 1 = 2680) This test was developed and i ts analytical performance characteristics have been determined by [employer]. It has not been cleared or appr omega by theFDA. This assay has been validated pursu ant to the CLIA regulations and is used for clinic al purposes. Note 2This drug testing is for medical treatme nt only. Analysis was performed as non-forensic te sting and these resul ts should be used only by healthcare providers to re nder diagnosis or treatment, or t o monitor progres s of medical conditi ons. For assistance with interpreting th shikha drug results, abhishek jacome contact a [employer] Toxicology Specialist: [phone] ( ), M-F, 8am-6pm ES T. RAC (test code = Performing RAC) Organization Information: Site ID: IG Name: [facility] Lab Address: [address] [place] [address] Director: Dr. Mani Madrid Lab Interpretation Abnormal (test code = 78399-7) [facility] HospitalBilirubin, [id number] 04:57:00 Test Item Value Reference Range Interpretation Comments Bilirubin, Total 8.6 mg/dL 0.2-1.2 H (test code = 20101226) Bilirubin, Direct 3.5 mg/dL See_Comment H [Automate d (test code = message] The 20110107) system which generated this result transmitted reference range : < OR = 0.2. The reference range was not used to interpret this result as normal/abnormal . Bilirubin, Indirect 5.1 See_Comment H [Automa monique (test code = message] The ) system which generated this result transmitted reference range : 0.2 - 1.2 mg/dL (calc). The reference range was not used to interpret this result as normal/abnormal . RAC (test code = Performing RAC) Organization Information: Site ID: RGA Name: [facility] Address: [address] [place] [address] Director: Mani Madrid Lab Interpretation Abnormal (test code = 98297-4) [facility] with platelet count + automated [id number] 04:57:00 Test Item Value Reference Interpretation Comments Range WBC (test code = 3.6 See_Comment L [Automated message] ) The system [employer] generated this result transmitted ref erence range: 3.8 - 10 .8 Thousand/uL. Th e reference range was not used to int erpret this result as normal/abnormal . RBC (test code = 3.22 See_Comment L [Automated message] 789-8) The system [employer] generated this result transmitted ref erence range: 4.20 - 5 .80 Million/uL. The reference range was not used to int erpret this result as normal/abnormal . Hemoglobin (test 12.3 g/dL 13.2-17.1 L code = ) Hematocrit (test 32.0 % 38.5-50 L code = ) MCV (test code = 99.4 fL 80-874 1178678) MCH (test code = 38.2 pg 27-33 H ) MCHC (test code = 38.4 g/dL 32-36 H ) RDW (test code = 13.6 % 11-15 ) Platelets (test 55 See_Comment L [Automated message] code = ) The system [employer] generated this result transmitted ref erence range: 140 - 40 0 Thousand/uL. Th e reference range was not used to int erpret this result as normal/abnormal . MPV (test code = 12.2 fL 7.5-12.5 [id number]) # Neutros (test 1811 See_Comment [Automated message] code = 20200313) The system w [employer] generated this result transmitted ref erence range: 1,500 - 7,800 cells/uL. The reference range was not used to int erpret this result as normal/abnormal . # Lymphs (test code 1058 See_Comment [Automa monique message] = 731-0) The system [employer] generated this result transmitted ref erence range: 850 - 3, 900 cells/uL. The reference range was not used to int erpret this result as normal/abnormal . # Monos (test code 490 See_Comment [Automat ed message] = ) The system [employer] generated this result transmitted ref erence range: 200 - 95 0 cells/uL. The reference range was not used to int erpret this result as normal/abnormal . # Eos (test code = 220 See_Comment [Automat ed message] 711-2) The system [employer] generated this result transmitted ref erence range: 15 - 500 cells/uL. The reference range was not used to int erpret this result as normal/abnormal . # Baso (test code = 22 See_Comment [Automa monique message] 704-7) The system [employer] generated this result transmitted ref erence range: 0 - 200 cells/uL. The reference range was not used to int erpret this result as normal/abnormal . % Neutros (test 50.3 % code = ) % Lymphs (test code 29.4 % = 20200310) % Monos (test code 13.6 % = ) % Eos (test code = 6.1 % 20200308) % Baso (test code = 0.6 % 20200309) Comment(s) (test Review of t he code = 7184555) peripheral s mear revealsdecrease d numbers of platelets.Revie w of peripheral smea r confirmsautomat ed results. RAC (test code = Performing RAC) Organization Information: Site ID: RGA Name: [facility] Address: [address] [place] [id number] Director: Mani Madrid [facility] Interpretation Abnormal (test code = 75586-1) [facility] [id number] 14:21:00Pt is Self ReferredInclude Abdominal VesselsFINAL REPORT TECHNIQUE: MRI of the abdomen WITHOUT and WITH intravenous contrast. INDICATION: 74-year-old man with cirrhosis. COMPARISON: Abdomen MRI 09/15/2019 and 03/17/2019. FINDINGS: LOWER THORAX: Unremarkable. LIVER: *Cirrhotic morphology of the liver. *No significant changesince 03/17/2019 of the 1.4 x 0.9 cm T1 hyperintense observation in segment III/IVB with arterial enhancement and apparent washout best seen on venous phase subtraction images (LI-RADS 5, axial postcontrast arterial series image 50). *No significant change in additional T1 hyperintense observations scattered throughout both lobes of the liver which measure up to 1.3 x 1 cm; some of these observations have associated arterial enhancement, but no washout or pseudocapsule (LI-RADS 3). *No significant change in scattered hepatic cysts, the largest measures 1.4 x 1.2 cm in the dome (LI-RADS 1). BILIARY: Cholelithiasis in the otherwise unremarkable gallbladder. No biliary ductal dilatation or filling defect.SPLEEN: Spleen is mildly prominent and measures 13.1 cm in the craniocaudal dimension.PANCREAS: No significant change in size of the cystic lesions scattered throughout the pancreas. The largest cystic lesions measures 1.5 x 2.8 cm in the body and 1.2 x 1 cm in the head, both of which contain thin internal septations. The remainder of the cystic lesions are subcentimeter in size. No solid mass or ductal dilatation. ADRENALS: No adrenal nodule.KIDNEYS/URETERS: No hydronephrosis or mass. PERITONEUM/ RETROPERITONEUM: No free fluid.LYMPH NODES: No lymphadenopathy.VESSELS: Portal system and hepatic veins are patent. Main portal vein measures 0.8 cm in diameter. Esophageal and perisplenic varices withspontaneous portosystemic shunt which remains into the is circumaortic left renal vein. Conventionalhepatic arterial anatomy. Abdominal aorta is normal in caliber. GI TRACT: No distention or wall thickening. BONES AND SOFT TISSUES: Bones are unremarkable. Gynecomastia bilaterally. IMPRESSION:Cirrhosis with portal hypertension. No significant change since 03/17/2019 of the 1.4 cm LI-RADS 5 observation in segment III/IVB, suspicious for hepatocellular carcinoma. No significant change in multiple LI-RA DS 3 observations, likely dysplastic nodules. 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 Cholelithiasis. Signed: Anat Rivera MDReport Verified Date/Time: 03/01/2020 14:21:12 Reading Locat ion: [facility] [address] [place] [address] Radiology Reading Room [id number] 12:21:00 Test Item Value Reference Range Interpretation Comments POC-Creatinine (test 0.9 mg/dL 0.6-1.3 : TESTE D AT [facility] 6720 code = 1859) [facility], [address]: Sr. Strategic Sourcing Manager/Techni rica ID = [id number] for ERIC PATE POC-EGFR (test code 82 mL/min/1.73M2 = 1860) [facility]-[id number] 12:21:00 Test Item Value Reference Range Interpretation Comments POC-CREATININE 0.9 mg/dL 0.6-1.3 : TESTED AT [facility] ([facility]) (test [address] [place] [address] code = 1859) [place], [address]: Sr. Strategic Sourcing Manager/Techni rica ID = [id number] for ERIC PATE POC-EGFR (BEAKER) 82 mL/min/1.73M2 (test code = 1860) PLATELET [id number] 12:37:00 Test Item Value Reference Range Interpretation Comments Platelet Estimate (test DECREASED ADEQUATE A code = 67534-2) LANI (test code = LANI) FASTING:NOAN UPDATE OR CORRECTION HAS BEEN MADE TO NAMEFASTING: NO RAC (test code = RAC) Performing Organization Information: Site ID: [facility]GA [facility]: [facility] Address: [address] [place] [id number] Director: Mani Madrid [facility] Interpretation (test Abnormal code = 43103-7) [facility], [id number] 13:16:00Pt is Self ReferredInclude Abdominal VesselsReason for Exam:->cirrhosis, on liver transplant listFINAL REPORT TECHNIQUE: MRI of the abdomen WITHOUT and WITH intravenous contrast. INDICATION: cirrhosis, on liver transplant listcirrhosis, on liver transplant list. COMPARISON: MR from 03/17/2019. FINDINGS: LOWER THORAX: Unremarkable. LIVER: Nodular, cirrhotic liver. Several cysts scattered throughout the liver measure up to 1.4 cm. There are several arterially enhancing lesions in the liver with examples as follow:*The arterially enhancing lesion in segment II measures 1.3 cm on axial arterial phase image 50, unchanged. There is pseudocapsule formation but no definite washout.*An arterially enhancing lesion in segment VII measures 0.6 cm on axial arterial phase image 34, unchanged.*Arterially enhancing focus in segment VIII measures 0.9 cm on axial arterial phase image 21, unchanged.*Arterially enhancing focus in segment V measures 0.4 cm on axial arterial phase image 55, unchanged.*An arterially enhancing focus in segment V measures 0.5 cm on axial T2 phase image 63, unchanged.*An arterially enhancing focus in segment III on axial arterial phase image 43 measures 0.8 cm, previously 1.4 cm.*An arterially enhancing focus in segment eight measures 0.7 cm on axial arterial phase image 32, unchanged.BILIARY: There are stones in the gallbladder neck which measure up to 0.7 cm. No gallbladder distention or wall thickening. No biliary ductal dilatation or filling defect.SPLEEN: 13.6 cm splenomegaly.PANCREAS: There are at least five cystic lesions in the pancreas which aresimilar to the prior examination with examples as follow:*Pancreatic body measures 0.8 cm and connects the main pancreatic duct, unchanged.*Pancreatic body measures 2.8 cm and connects the main pancreatic duct, previously 2.6 cm.*Uncinate process measures 2.3 cm, unchanged. ADRENALS: No adrenal nodules.KIDNEYS/URETERS: No hydronephrosis or solid mass lesions. PERITONEUM/RETROPERITONEUM: No free fluid.LYMPH NODES: No lymphadenopathy.VESSELS: Left splenorenal shunt. Moderate sized paraesophageal varices. Conventional hepatic arterial anatomy. Circumaortic left renal vein. GI TRACT: No distention or wall thickening. BONES AND SOFT TISSUES: Bilateral gynecomastia. IMPRESSION: 1.The arterially enhancing lesion in segment III which measures 1.3 cm is unchanged in size but has a pseudocapsule. This is c oncerning for but not diagnostic of hepatocellular carcinoma. 2.Several other arterially enhancing lesions scattered throughout the liver are most consistent with dysplastic nodules and similar to the prior. 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 One of the side branch intraductal pattern mucinous neoplasms in the pancreatic body has minimally increased in size to 2.8 cm from 2.6 cm. No ductal dilation or nodular component to suggest malignant transformation. 4.Cholelithiasis without acute cholecystitis. Signed: Venus Thapa MDReport Verified Date/Time: 09/15/2019 13:16:13 Reading Location: [address] Consult Reading Room [id number] 09:29:00 Test Item Value Reference Range Interpretation Comments POC-CREATININE 0.8 mg/dL 0.6-1.3 TESTED AT [facility] 67[address] ([facility]) (test [place] code = 1859) [address] POC-EGFR ([employer]) 94 mL/min/1.73M2 (test code = 1860) MR, ABDOMEN, [id number] 16:34:00Pt is Self ReferredInclude Abdominal Vessels FINAL REPORT MRI of the abdomen dated March 17, 2019 COMPARISON: September 16, 2018 Comment: Multiplanar T1 and T2-weighted images of the abdomen, postcontrast axial and coronal T1-weighted images of the abdomen were obtained. Liver is cirrhotic in appearance with irregular margins. A 9 mm T1 bright minimally enhancing lesion is seen in the segment 2 of the liver. A 1 cm T1 brightminimally enhancing lesion is seen in the segment 4 of the liver. An 8 mm T1 bright minimally enhancing lesion is seen in the segment 8 of the liver. No delayed washout is present. Findings are compatible with dysplastic nodules. Several cysts are seen in the liver with the largest measuring approximately 11 mm in the segment 8 of the liver. Spleen is enlarged measuring 12 x 5.0 x 13.4 cm. The splenic, superior mesenteric, portal, and hepatic veins are patent. Main portal vein measures approximately8 mm in diameter. Multiple collateral veins are seen in the splenic, and left paracolic gutter. There is splenorenal shunt. Paraesophageal varices is present. Gallbladder is contracted. Acute small gall stones are present. No biliary dilatation is seen. Pancreas is normal in caliber. Multiple cystic lesions are seen in the pancreas with largest measuring approximately 1.1 x 1.8 cm suggestive of IPMN. The cystic pancreatic lesions are stable as compared to the prior study. The adrenals are unremarkable. Both kidneys are normal in size and functioning. No adenopathy or ascites is present. The visualized small and large bowel are unremarkable. IMPRESSION:1. Cirrhosis with splenomegaly and portal hypertension.2. T1 bright minimally enhancing lesions in the liver consistent with dysplastic nodules. This can be followed with subsequent image examination 3. Stable cystic pancreatic lesions.4. Cholelithiasis without biliary dilatation. Signed: Ton [facility] Verified Date/Time: 03/17/2019 16:34:12 Reading Location: [address] Radiology Reading Room ALPHA FETOPROTEIN (AFP), TUMOR [id number] 13:55:00 Test Item Value Reference Range Interpretation Comments ALPHA-FETOPROTEIN (BEAKER) (test 6.8 ng/mL <10.0 code = 1094) COMPREHENSIVE METABOLIC [id number] 13:38:00 Test Item Value Reference Range Interpretation Comments TOTAL PROTEIN 7.7 gm/dL 6.0-8.3 (BEAKER) (test code = 770) ALBUMIN (BEAKER) 3.5 g/dL 3.5-5.0 (test code = 1145) ALKALINE PHOSPHATASE 145 U/L 40-150 (BEAKER) (test code = 346) BILIRUBIN TOTAL 3.1 mg/dL 0.2-1.2 H (BEAKER) (test code = 377) SODIUM (BEAKER) (test 136 meq/L 136-145 code = 381) POTASSIUM (BEAKER) 4.3 meq/L 3.5-5.1 (test code = 379) CHLORIDE (BEAKER) 107 meq/L 98-107 (test code = 382) CO2 (BEAKER) (test 23 meq/L 22-29 code = 355) BLOOD UREA NITROGEN 19 mg/dL 7-21 (BEAKER) (test code = 354) CREATININE (BEAKER) 0.92 mg/dL 0.57-1.25 (test code = 358) GLUCOSE RANDOM 115 mg/dL 70-105 H (BEAKER) (test code = 652) CALCIUM (BEAKER) 9.4 mg/dL 8.4-10.2 (test code = 697) AST (SGOT) (BEAKER) 65 U/L 5-34 H (test code = 353) ALT (SGPT) (BEAKER) 33 U/L 6-55 (test code = 347) EGFR (BEAKER) (test 81 mL/min/1.73 ESTIMA MONIQUE GFR IS code = 1092) sq m NOT ACCURATE CREATININE CLEARANCE IN PREDICTING GLOMERULAR FILTRATION RATE . ESTIMATED GFR I S NOT APPLICABLE FOR DIALYSIS PATIEN TS. Specimen slightly ictericBILIRUBIN, [id number] 13:38:00 Test Item Value Reference Range Interpretation Comments BILIRUBIN DIRECT (BEAKER) (test 1.3 mg/dL 0.1-0.5 H code = 706) PROTHROMBIN [id number] 13:01:00 Test Item Value Reference Range Interpretation Comments PROTIME (BEAKER) (test code = 15.7 seconds 11.9-14.2 H 759) INR (BEAKER) (test code = 370) 1.3 <=5.9 Effective 01/14/2019: PT Reference Range ChangeNew: 11.9-14.2 Previous: 11.7- 14.7RECOMMENDED COUMADIN/WARFARIN INR THERAPY RANGESSTANDARD DOSE: 2.0-3.0 Includes: PROPHYLAXIS for venous thrombosis, systemic embolization; TREATMENT for venous thrombosis and/or pulmonary embolus.HIGH RISK: Target INR is2.5-3.5 for patients wiht mechanical heart valves.CBC W/PLT COUNT & AUTO [id number] 12:46:00 Test Item Value Reference Range Interpretation Comments WHITE BLOOD CELL COUNT (BEAKER) 4.4 K/ L 3.5-10.5 (test code = 775) RED BLOOD CELL COUNT (BEAKER) 3.84 M/ L 4.63-6.08 L (test code = 761) HEMOGLOBIN (BEAKER) (test code = 14.0 GM/DL 13.7-17.5 410) HEMATOCRIT (BEAKER) (test code = 40.9 % 40.1-51.0 411) MEAN CORPUSCULAR VOLUME (BEAKER) 106.5 fL 79.0-92.2 H (test code = 753) MEAN CORPUSCULAR HEMOGLOBIN 36.5 pg 25.7-32.2 H (BEAKER) (test code = 751) MEAN CORPUSCULAR HEMOGLOBIN CONC 34.2 GM/DL 32.3-36.5 (BEAKER) (test code = 752) RED CELL DISTRIBUTION WIDTH 14.2 % 11.6-14.4 (BEAKER) (test code = 412) PLATELET COUNT (BEAKER) (test code 77 K/CU MM 150-450 L = 756) MEAN PLATELET VOLUME (BEAKER) 10.8 fL 9.4-12.4 (test code = 754) NUCLEATED RED BLOOD CELLS (BEAKER) 0 /100 WBC 0-0 (test code = 413) NEUTROPHILS RELATIVE PERCENT 49 % (BEAKER) (test code = 429) LYMPHOCYTES RELATIVE PERCENT 32 % (BEAKER) (test code = 430) MONOCYTES RELATIVE PERCENT 13 % (BEAKER) (test code = 431) EOSINOPHILS RELATIVE PERCENT 6 % (BEAKER) (test code = 432) BASOPHILS RELATIVE PERCENT 1 % (BEAKER) (test code = 437) NEUTROPHILS ABSOLUTE COUNT 2.13 K/ L 1.78-5.38 (BEAKER) (test code = 670) LYMPHOCYTES ABSOLUTE COUNT 1.41 K/ L 1.32-3.57 (BEAKER) (test code = 414) MONOCYTES ABSOLUTE COUNT (BEAKER) 0.56 K/ L 0.30-0.82 (test code = 415) EOSINOPHILS ABSOLUTE COUNT 0.24 K/ L 0.04-0.54 (BEAKER) (test code = 416) BASOPHILS ABSOLUTE COUNT (BEAKER) 0.03 K/ L 0.01-0.08 (test code = 417) IMMATURE GRANULOCYTES-RELATIVE 0 % 0-1 PERCENT (BEAKER) (test code = 2801) CT, CHEST, WITHOUT [id number] 09:37:00Pt is Self ReferredFINAL REPORT CT Chest without contrast History: Pulmonary nodules, history ofcirrhosis, awaiting organ transplantation Comparison: 09/16/2018, 03/19/2018 Technique: serial axial imaging was performed without intravenous contrast as per departmental protocol. Multiplanar images are reconstructed and reviewed when indicated. This CT examination is performed using one or more of the following dose reduction techniques: Automated exposure control, adjustment of the mA and /or kV according to patient size, and/or use of iterative reconstruction technique. Findings:No mediastinallymphadenopathy. No definite hilar enlargement. Normal size heart. No pericardial effusion. No thoracic aortic aneurysm. Normal caliber of main pulmonary trunk. Patent central airways. No pleural effusion or pneumothorax. Areas of mild scarring at the right pulmonary apex and tiny subcentimeter right upper lobe pulmonary nodules demonstrate no significant change. A calcified granuloma within the left upper lobe is consistent with previous granulomatous disease. The lungs are otherwise clear. Partial visualization of a cirrhotic liver. Subcentimeter hypodense lesions within the right hepatic lobe seen on the prior examination demonstrate no gross interval change. Esophageal and splenic varices are consistent with portal hypertension. Gallstones are noted, without gallbladder wall thickening or pericholecystic fluid. No aggressive osseous lesion. Impression: 1. Areas of mild parenchymal thickening at the right pulmonary apex and subcentimeter right upper lobe pulmonary nodules demonstrate no significant interval change, suggesting benign etiology.2. Partial visualization of a cirrhotic liver and gallstones. Signed: Eugenio Gaffneyeport Verified Date/Time: 03/17/2019 09:37:41 Reading Location: [facility] Diagnostic Imaging Reading Room - [place] [address] -[id number] 09:07:00 Test Item Value Reference Range Interpretation Comments POC-CREATININE 0.9 mg/dL 0.6-1.3 TESTED AT [facility] [address] ([facility]) (test [facility] [place] code = 1859) [address] POC-EGFR ([facility]) 83 mL/min/1.73M2 (test code = 1860) CT, CHEST, WITHOUT [id number] 16:52:00Pt is Self ReferredFINAL REPORT CT scan of the chest. MEDICAL HISTORY: Awaiting organ transplant, screening for malignant neoplasm. COMPARISON STUDY: Chest x-ray dated May 07, 2018. CT scan dated March 19, 2018 TECHNIQUE: Contiguous helical slices were acquired through the thorax without theadministration of contrast. This exam was performed according to our department dose optimization program which includes automated exposure control, adjustment of the mA and/or kV according to the patient's size and/or use of iterative reconstruction technique. FINDINGS: The mediastinum demonstrates no suspicious masses or adenopathy. Atherosclerosis is seen. No pleural effusion is noted. The visualiz ed portions of the upper abdomen demonstrate a nodular, cirrhotic appearing liver. The spleen is borderline enlarged. Perisplenic collaterals are seen. There are low-attenuation hepatic lesions identified measuring up to 1.1 cm in the anterior segment of the right lobe and 1 cm in the right hepatic dome which are incompletely characterized on this study. Please refer to MRI of the abdomen done on the. The tracheobronchial tree is clear with no endobronchial lesions. The pulmonary parenchymademonstrates scarring in the right lung apex. There are multiple small nodules in the right lung apex measuring up to 3 mm. Nodularity seen along the superior aspect of the right oblique fissure measuring up to 4 mm. Some bronchial wall thickening is seen in this region. Atelectatic changes are noted.Bone windows demonstrate degenerative changes. IMPRESSION:1. Scarring in the right lung apex with areas of nodularity. This is stable from March 19, 2018 and may be related to an atypical infection. The previously noted groundglass opacity in the right upper lobe has resolved. Continued follow-up could be made as well as clinical correlation.2. Upper abdominal findings as described above which are better assessed on recent MRI. Signed: Yi Torrez MDReport Verified Date/Time: 09/16/2018 16:52:24 Reading Location: [address] Radiology Reading Room MR, ABDOMEN, [id number] 15:22:00Pt is Self ReferredInclude Abdominal VesselsFINAL REPORT MRI of the abdomen. CLINICAL HISTORY: awaiting orgna transplant,screening for malignant neoplasm. COMPARISON STUDY: May 19, 2018. Technique: Multiplanar, multiseq uence imaging of the abdomen was acquired both pre and post administration of intravenous gadoliniumin a dynamic fashion. No oral contrast was administered. Funnies: No pleural effusion is seen. The liver is nodular and cirrhotic in appearance. Post ministration of intravenous gadolinium in a dynamicfashion, again seen is a 1.3 x 0.9 cm enhancing focus in the medial segment of the left lobe near the falciform ligament. Within the lateral segment on image 11 is a 1.1 cm enhancing focus. Both are stable from previous. No significant washout or T2 weighted signal abnormality is seen. Several increased T1-weighted lesions are seen, similar to previous consistent with dysplastic nodules. There are mul tiple hepatic cysts identified measuring up to 1.1 cm in the right lobe. Cholelithiasis is seen withno biliary dilatation. The spleen is enlarged measuring 13.1 cm. The the adrenal glands and kidneys are unremarkable. There are multiple pancreatic cysts seen measuring up to 7 mm. No dilated loops of b owel are seen. There are extensive perisplenic collaterals, a splenorenal shunt and left-sided retroperitoneal collaterals identified. No ascites is noted. The aorta is normal in caliber. No suspiciousadenopathy is seen. The visualized osseous structures demonstrate degenerative changes. IMPRESSION:1. Nodular, cirrhotic appearing liver. Stable arterially enhancing lesions are seen in segments four and two the differential for which includes dysplastic nodules and HCC.2. Hepatic cysts.3. Dysplastic hepatic nodules with areas of shunting.4. Evidence of portal hypertension.5. Cystic pancreatic lesions which are stable from previous and for which sidebranch IPMN cannot be excluded. Signed: Yi Torrez MDReport Verified Date/Time: 09/16/2018 15:22:12 Reading Location: [address] Radiology Reading Room COMPREHENSIVE METABOLIC PANEL 2018-09-16 15:06:00 Test Item Value Reference Range Interpretation Comments TOTAL PROTEIN 7.5 gm/dL 6.0-8.3 (BEAKER) (test code = 770) ALBUMIN (BEAKER) 3.5 g/dL 3.5-5.0 (test code = 1145) ALKALINE PHOSPHATASE 124 U/L 40-150 (BEAKER) (test code = 346) BILIRUBIN TOTAL 2.9 mg/dL 0.2-1.2 H (BEAKER) (test code = 377) SODIUM (BEAKER) (test 140 meq/L 136-145 code = 381) POTASSIUM (BEAKER) 4.2 meq/L 3.5-5.1 (test code = 379) CHLORIDE (BEAKER) 108 meq/L 98-107 H (test code = 382) CO2 (BEAKER) (test 28 meq/L 22-29 code = 355) BLOOD UREA NITROGEN 18 mg/dL 7-21 (BEAKER) (test code = 354) CREATININE (BEAKER) 0.95 mg/dL 0.57-1.25 (test code = 358) GLUCOSE RANDOM 119 mg/dL 70-105 H (BEAKER) (test code = 652) CALCIUM (BEAKER) 10.0 mg/dL 8.4-10.2 (test code = 697) AST (SGOT) (BEAKER) 58 U/L 5-34 H (test code = 353) ALT (SGPT) (BEAKER) 27 U/L 6-55 (test code = 347) EGFR (BEAKER) (test 78 mL/min/1.73 ESTIMA MONIQUE GFR IS code = 1092) sq m NOT ACCURATE CREATININE CLEARANCE IN PREDICTING GLOMERULAR FILTRATION RATE . ESTIMATED GFR I S NOT APPLICABLE FOR DIALYSIS PATIEN TS. Specimen slightly ictericBILIRUBIN, [id number] 15:06:00 Test Item Value Reference Range Interpretation Comments BILIRUBIN DIRECT (BEAKER) (test 1.1 mg/dL 0.1-0.5 H code = 706) PROTHROMBIN [id number] 14:41:00 Test Item Value Reference Range Interpretation Comments PROTIME (BEAKER) (test code = 15.4 seconds 11.7-14.7 H 759) INR (BEAKER) (test code = 370) 1.2 <=5.9 RECOMMENDED COUMADIN/WARFARIN INR THERAPY RANGESSTANDARD DOSE: 2.0 - 3.0 Includes: PROPHYLAXIS forvenous thrombosis, systemic embolization; TREATMENT for venous thrombosis and/or pulmonary embolus.HIGH RISK: Target INR is 2.5-3.5 for patients with mechanical heart valves.CBC W/PLT COUNT & AUTO DIFFERENTIAL 2018-09-16 14:25:00 Test Item Value Reference Range Interpretation Comments WHITE BLOOD CELL COUNT (BEAKER) 4.9 K/ L 3.5-10.5 (test code = 775) RED BLOOD CELL COUNT (BEAKER) 3.80 M/ L 4.63-6.08 L (test code = 761) HEMOGLOBIN (BEAKER) (test code = 13.1 GM/DL 13.7-17.5 L 410) HEMATOCRIT (BEAKER) (test code = 39.8 % 40.1-51.0 L 411) MEAN CORPUSCULAR VOLUME (BEAKER) 104.7 fL 79.0-92.2 H (test code = 753) MEAN CORPUSCULAR HEMOGLOBIN 34.5 pg 25.7-32.2 H (BEAKER) (test code = 751) MEAN CORPUSCULAR HEMOGLOBIN CONC 32.9 GM/DL 32.3-36.5 (BEAKER) (test code = 752) RED CELL DISTRIBUTION WIDTH 13.8 % 11.6-14.4 (BEAKER) (test code = 412) PLATELET COUNT (BEAKER) (test code 85 K/CU MM 150-450 L = 756) MEAN PLATELET VOLUME (BEAKER) 11.3 fL 9.4-12.4 (test code = 754) NUCLEATED RED BLOOD CELLS (BEAKER) 0 /100 WBC 0-0 (test code = 413) NEUTROPHILS RELATIVE PERCENT 58 % (BEAKER) (test code = 429) LYMPHOCYTES RELATIVE PERCENT 24 % (BEAKER) (test code = 430) MONOCYTES RELATIVE PERCENT 15 % (BEAKER) (test code = 431) EOSINOPHILS RELATIVE PERCENT 3 % (BEAKER) (test code = 432) BASOPHILS RELATIVE PERCENT 1 % (BEAKER) (test code = 437) NEUTROPHILS ABSOLUTE COUNT 2.80 K/ L 1.78-5.38 (BEAKER) (test code = 670) LYMPHOCYTES ABSOLUTE COUNT 1.16 K/ L 1.32-3.57 L (BEAKER) (test code = 414) MONOCYTES ABSOLUTE COUNT (BEAKER) 0.71 K/ L 0.30-0.82 (test code = 415) EOSINOPHILS ABSOLUTE COUNT 0.16 K/ L 0.04-0.54 (BEAKER) (test code = 416) BASOPHILS ABSOLUTE COUNT (BEAKER) 0.03 K/ L 0.01-0.08 (test code = 417) IMMATURE GRANULOCYTES-RELATIVE 0 % 0-1 PERCENT (BEAKER) (test code = 2801) [id number] 14:05:00 Test Item Value Reference Range Interpretation Comments POC-CREATININE 1.0 mg/dL 0.6-1.3 TESTED AT [facility] 6720 (BEAKER) (test [place] code = 1859) [address] POC-EGFR (BEAKER) 73 mL/min/1.73M2 (test code = 1860) MISCELLANEOUS LAB [id number] 09:07:00 Test Item Value Reference Range Interpretation Comments SCAN RESULT (test code = 0188304) [id number] 15:14:00 Test Item Value Reference Range Interpretation Comments ETHANOL (BEAKER) (test code = 400) < mg/dL <=10 COMPREHENSIVE METABOLIC [id number] 15:06:00 Test Item Value Reference Range Interpretation Comments TOTAL PROTEIN 7.7 gm/dL 6.0-8.3 (BEAKER) (test code = 770) ALBUMIN (BEAKER) 3.5 g/dL 3.5-5.0 (test code = 1145) ALKALINE PHOSPHATASE 142 U/L 40-150 (BEAKER) (test code = 346) BILIRUBIN TOTAL 3.2 mg/dL 0.2-1.2 H (BEAKER) (test code = 377) SODIUM (BEAKER) (test 139 meq/L 136-145 code = 381) POTASSIUM (BEAKER) 3.6 meq/L 3.5-5.1 (test code = 379) CHLORIDE (BEAKER) 105 meq/L 98-107 (test code = 382) CO2 (BEAKER) (test 26 meq/L 22-29 code = 355) BLOOD UREA NITROGEN 18 mg/dL 7-21 (BEAKER) (test code = 354) CREATININE (BEAKER) 1.11 mg/dL 0.57-1.25 (test code = 358) GLUCOSE RANDOM 133 mg/dL 70-105 H (BEAKER) (test code = 652) CALCIUM (BEAKER) 9.8 mg/dL 8.4-10.2 (test code = 697) AST (SGOT) (BEAKER) 64 U/L 5-34 H (test code = 353) ALT (SGPT) (BEAKER) 34 U/L 6-55 (test code = 347) EGFR (BEAKER) (test 65 mL/min/1.73 ESTIMA MONIQUE GFR IS code = 1092) sq m NOT ACCURATE CREATININE CLEARANCE IN PREDICTING GLOMERULAR FILTRATION RATE . ESTIMATED GFR I S NOT APPLICABLE FOR DIALYSIS PATIEN TS. Specimen slightly ictericPROTHROMBIN [id number] 14:55:00 Test Item Value Reference Range Interpretation Comments PROTIME (BEAKER) (test code = 15.4 seconds 11.7-14.7 H 759) INR (BEAKER) (test code = 370) 1.2 <=5.9 RECOMMENDED COUMADIN/WARFARIN INR THERAPY RANGESSTANDARD DOSE: 2.0 - 3.0 Includes: PROPHYLAXIS forvenous thrombosis, systemic embolization; TREATMENT for venous thrombosis and/or pulmonary embolus.HIGH RISK: Target INR is 2.5-3.5 for patients with mechanical heart valves.CBC W/PLT COUNT & AUTO DIFFERENTIAL 2018-07-15 14:46:00 Test Item Value Reference Range Interpretation Comments WHITE BLOOD CELL COUNT (BEAKER) 3.8 K/ L 3.5-10.5 (test code = 775) RED BLOOD CELL COUNT (BEAKER) 3.56 M/ L 4.63-6.08 L (test code = 761) HEMOGLOBIN (BEAKER) (test code = 12.7 GM/DL 13.7-17.5 L 410) HEMATOCRIT (BEAKER) (test code = 37.1 % 40.1-51.0 L 411) MEAN CORPUSCULAR VOLUME (BEAKER) 104.2 fL 79.0-92.2 H (test code = 753) MEAN CORPUSCULAR HEMOGLOBIN 35.7 pg 25.7-32.2 H (BEAKER) (test code = 751) MEAN CORPUSCULAR HEMOGLOBIN CONC 34.2 GM/DL 32.3-36.5 (BEAKER) (test code = 752) RED CELL DISTRIBUTION WIDTH 14.4 % 11.6-14.4 (BEAKER) (test code = 412) PLATELET COUNT (BEAKER) (test code 68 K/CU MM 150-450 L = 756) MEAN PLATELET VOLUME (BEAKER) 10.6 fL 9.4-12.4 (test code = 754) NUCLEATED RED BLOOD CELLS (BEAKER) 0 /100 WBC 0-0 (test code = 413) NEUTROPHILS RELATIVE PERCENT 55 % (BEAKER) (test code = 429) LYMPHOCYTES RELATIVE PERCENT 26 % (BEAKER) (test code = 430) MONOCYTES RELATIVE PERCENT 13 % (BEAKER) (test code = 431) EOSINOPHILS RELATIVE PERCENT 5 % (BEAKER) (test code = 432) BASOPHILS RELATIVE PERCENT 1 % (BEAKER) (test code = 437) NEUTROPHILS ABSOLUTE COUNT 2.09 K/ L 1.78-5.38 (BEAKER) (test code = 670) LYMPHOCYTES ABSOLUTE COUNT 0.98 K/ L 1.32-3.57 L (BEAKER) (test code = 414) MONOCYTES ABSOLUTE COUNT (BEAKER) 0.50 K/ L 0.30-0.82 (test code = 415) EOSINOPHILS ABSOLUTE COUNT 0.18 K/ L 0.04-0.54 (BEAKER) (test code = 416) BASOPHILS ABSOLUTE COUNT (BEAKER) 0.03 K/ L 0.01-0.08 (test code = 417) IMMATURE GRANULOCYTES-RELATIVE 0 % 0-1 PERCENT (BEAKER) (test code = 2801) [id number] 05:21:00 Test Item Value Reference Range Interpretation Comments MAGNESIUM (BEAKER) (test code = 1.9 mg/dL 1.6-2.6 627) BASIC METABOLIC [id number] 05:21:00 Test Item Value Reference Range Interpretation Comments SODIUM (BEAKER) 139 meq/L 136-145 (test code = 381) POTASSIUM (BEAKER) 4.1 meq/L 3.5-5.1 (test code = 379) CHLORIDE (BEAKER) 110 meq/L 98-107 H (test code = 382) CO2 (BEAKER) (test 24 meq/L 22-29 code = 355) BLOOD UREA NITROGEN 17 mg/dL 7-21 (BEAKER) (test code = 354) CREATININE (BEAKER) 0.82 mg/dL 0.57-1.25 (test code = 358) GLUCOSE RANDOM 118 mg/dL 70-105 H (BEAKER) (test code = 652) CALCIUM (BEAKER) 9.7 mg/dL 8.4-10.2 (test code = 697) EGFR (BEAKER) (test 92 mL/min/1.73 ESTIMA MONIQUE GFR IS code = 1092) sq m NOT ACCURATE CREATININE CLEARANCE IN PREDICTING GLOMERULAR FILTRATION RATE . ESTIMATED GFR I S NOT APPLICABLE FOR DIALYSIS PATIEN TS. Specimen slightly ictericCBC W/PLT COUNT & AUTO [id number] 04:53:00 Test Item Value Reference Range Interpretation Comments WHITE BLOOD CELL COUNT (BEAKER) 3.8 K/ L 3.5-10.5 (test code = 775) RED BLOOD CELL COUNT (BEAKER) 3.34 M/ L 4.63-6.08 L (test code = 761) HEMOGLOBIN (BEAKER) (test code = 11.8 GM/DL 13.7-17.5 L 410) HEMATOCRIT (BEAKER) (test code = 34.7 % 40.1-51.0 L 411) MEAN CORPUSCULAR VOLUME (BEAKER) 103.9 fL 79.0-92.2 H (test code = 753) MEAN CORPUSCULAR HEMOGLOBIN 35.3 pg 25.7-32.2 H (BEAKER) (test code = 751) MEAN CORPUSCULAR HEMOGLOBIN CONC 34.0 GM/DL 32.3-36.5 (BEAKER) (test code = 752) RED CELL DISTRIBUTION WIDTH 13.5 % 11.6-14.4 (BEAKER) (test code = 412) PLATELET COUNT (BEAKER) (test code 60 K/CU MM 150-450 L = 756) MEAN PLATELET VOLUME (BEAKER) 10.8 fL 9.4-12.4 (test code = 754) NUCLEATED RED BLOOD CELLS (BEAKER) 0 /100 WBC 0-0 (test code = 413) NEUTROPHILS RELATIVE PERCENT 57 % (BEAKER) (test code = 429) LYMPHOCYTES RELATIVE PERCENT 24 % (BEAKER) (test code = 430) MONOCYTES RELATIVE PERCENT 15 % (BEAKER) (test code = 431) EOSINOPHILS RELATIVE PERCENT 5 % (BEAKER) (test code = 432) BASOPHILS RELATIVE PERCENT 1 % (BEAKER) (test code = 437) NEUTROPHILS ABSOLUTE COUNT 2.15 K/ L 1.78-5.38 (BEAKER) (test code = 670) LYMPHOCYTES ABSOLUTE COUNT 0.90 K/ L 1.32-3.57 L (BEAKER) (test code = 414) MONOCYTES ABSOLUTE COUNT (BEAKER) 0.56 K/ L 0.30-0.82 (test code = 415) EOSINOPHILS ABSOLUTE COUNT 0.17 K/ L 0.04-0.54 (BEAKER) (test code = 416) BASOPHILS ABSOLUTE COUNT (BEAKER) 0.02 K/ L 0.01-0.08 (test code = 417) IMMATURE GRANULOCYTES-RELATIVE 0 % 0-1 [facility]CENT [facility] (test code = 2801) [id number] 10:49:00 Test Item Value Reference Range Interpretation Comments ACTIVATED CLOTTING TIME 274 sec TEST ED AT [place] [address] ([facility]) (test code = BLANCA James [facility] 441) [id number] 10:49:00 Test Item Value Reference Range Interpretation Comments ACTIVATED CLOTTING TIME 197 sec TEST ED AT [place] [address] ([facility]) (test code = BLAN[place] James [place] [address]) [address] [id number] 10:49:00 Test Item Value Reference Range Interpretation Comments ACTIVATED CLOTTING TIME 153 sec TEST ED AT [place] [address] ([facility]) (test code = TYEMN Erika [place] [address]) [address] BASIC METABOLIC [id number] 07:58:00 Test Item Value Reference Range Interpretation Comments SODIUM (BEAKER) 141 meq/L 136-145 (test code = 381) POTASSIUM (BEAKER) 3.8 meq/L 3.5-5.1 (test code = 379) CHLORIDE (BEAKER) 107 meq/L 98-107 (test code = 382) CO2 (BEAKER) (test 28 meq/L 22-29 code = 355) BLOOD UREA NITROGEN 15 mg/dL 7-21 (BEAKER) (test code = 354) CREATININE (BEAKER) 0.85 mg/dL 0.57-1.25 (test code = 358) GLUCOSE RANDOM 123 mg/dL 70-105 H (BEAKER) (test code = 652) CALCIUM (BEAKER) 9.7 mg/dL 8.4-10.2 (test code = 697) EGFR (BEAKER) (test 89 mL/min/1.73 ESTIMA MONIQUE GFR IS code = 1092) sq m NOT ACCURATE CREATININE CLEARANCE IN PREDICTING GLOMERULAR FILTRATION RATE . ESTIMATED GFR I S NOT APPLICABLE FOR DIALYSIS PATIEN TS. Specimen slightly ictericCBC (HEMOGRAM ONLY)2018-06-17 07:44:00 Test Item Value Reference Range Interpretation Comments WHITE BLOOD CELL COUNT (BEAKER) 3.1 K/ L 3.5-10.5 L (test code = 775) RED BLOOD CELL COUNT (BEAKER) 3.67 M/ L 4.63-6.08 L (test code = 761) HEMOGLOBIN (BEAKER) (test code = 13.1 GM/DL 13.7-17.5 L 410) HEMATOCRIT (BEAKER) (test code = 37.7 % 40.1-51.0 L 411) MEAN CORPUSCULAR VOLUME (BEAKER) 102.7 fL 79.0-92.2 H (test code = 753) MEAN CORPUSCULAR HEMOGLOBIN 35.7 pg 25.7-32.2 H (BEAKER) (test code = 751) MEAN CORPUSCULAR HEMOGLOBIN CONC 34.7 GM/DL 32.3-36.5 (BEAKER) (test code = 752) RED CELL DISTRIBUTION WIDTH 13.4 % 11.6-14.4 (BEAKER) (test code = 412) PLATELET COUNT (BEAKER) (test code 56 K/CU MM 150-450 L = 756) MEAN PLATELET VOLUME (BEAKER) 10.2 fL 9.4-12.4 (test code = 754) NUCLEATED RED BLOOD CELLS (BEAKER) 0 /100 WBC 0-0 (test code = 413) MR, ABDOMEN, [id number] 13:13:00Pt is Self ReferredFINAL REPORT INDICATION:72-year-old male with cirrhosis. Surveillance for hepa tocellular carcinoma. [facility] July [facility], 2017 and May 18, 2014 TECHNIQUE: MR of the Abdomen WITHOUT and WITH intravenous contrast. FINDINGS:Micronodular liver and hypertrophy of the caudate lobe are in keeping with cirrhosis. Segment IV lesion (arterial phase image 78) again demonstrates arterial enhancement with possible washout. There is suggestion of an pseudocapsule on corresponding postcontrast coronal image 16. The lesion measures 1.1 cm axial plane and is unchanged. Questionable lesion in segment II (image 82), measuring 1.0 cm, again demonstrates vague enhancement and no washout or pseudocapsule. Several hepatic cysts are again noted. 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 Main portal vein measures 0.7 cm in diameter; intrahepatic portal veins are small in caliber. No thrombus in the portal venous system demonstrated. Superior mesenteric vein and splenic vein are patent. Spleen is mildly enlarged. Gallbladder is unremarkable. There is no biliary ductal dilatation. There are several pancreatic cystic lesions, largest is in the neck of the pancreas and is septated and measures 2 cm. They are unchanged compared to June 2017. Adrenal glands, kidneys, visualized bowel loops, are unremarkable. No suspicious marrow signal abnormality. IMPRESSION:Cirrhosis with possible hepatocellular carcinoma, measuring 1.1 cm, in segment IV. Indeterminate enhancing lesion in segment II, measuring 1.0 cm. 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 Signed: Arie Lopez Verified Date/Time: 05/19/2018 13:13:17Reading Location: [address] Radiology Reading Room -NUCLEAR ANTIBODY (RUKHSANA)2018-05-10 06:32:00 Test Item Value Reference Range Interpretation Comments ANTI-NUCLEAR ANTIBODY (RUKHSANA) (BEAKER) Negative Negative (test code = 418) Test performed by IFA method.Test performed by IFA method.CRYPTOCOCCAL ANTIGEN 2018-05-08 01:32:00 Test Item Value Reference Range Interpretation Comments CRYPTOCOCCAL ANTIGEN, SERUM Negative Negative, Interference (BEAKER) (test code = 1828) [id number] 01:24:00 Test Item Value Reference Range Interpretation Comments RPR SCREEN (BEAKER) (test code = Nonreactive Nonreactive 420) RAD, CHEST, 2 [id number] 14:46:00Pt is Self ReferredReason for Exam:- >liver transplant evaluationFINAL REPORT Chest, PA and lateral. History: Liver transplant evaluation. Comparison: None available. Discussion: The cardiomediastinal silhouette and pulmonary vasculature are within normal limits. The lungs are clear without evidence of consolidation or effusion. There areno acute osseous abnormalities. The soft tissues are unremarkable. IMPRESSION: No acute cardiopulmonary abnormality. Signed: Abi Varelaeport Verified Date/Time: 05/07/2018 14:46:06 Reading Location: [address] Radiology Reading Room Electronically signed by: ABI VARELA M.D.on 05/07/2018 02:46 PMRAD, MANDIBLE, MIN 4 [id number] 14:46:00 Pt is Self ReferredReason for Exam:->Liver Transplant EvaluationFINAL REPORT Mandible series, five images HISTORY: Cirrhosis COMPARISON: NoneIMPRESSION:No fracture or dislocation. No lytic or blastic lesions. Soft tissues unremarkable. Signed: Abi Varela Verified Date/Time: 05/07/2018 14:46:44 Reading Location: [address] Radiology Reading Room RAD, BONE DENSITY [id number] 13:56:00Pt is Self ReferredReason for Exam:->Liver Transplant EvaluationFINAL REPORT Bone mineral density study 05/07/2018. CLINICAL INDICATION: Liver transplant evaluation. COMPARISON: None available FINDINGS: Evaluation of the left and right femoral necks and lumbar spine was performed utilizing a [employer] bone densitometer. Dat[employer]lect young adult matched T-scores and age-matched Z scores. IMPRESSION: The left femoral neck bone mineral density is 0.947gm/cm2, the T-score is -0.9, and the Z-score is 0.3. The right femoral neck total bone mineral density is 0.921gm/cm2, the T-score is -1.1, and the Z-score is 0.1. The lumbar spine total bone mineral density is 1.174gm/cm2, the T-score is -0.4, and the Z-score is 0.1. Signed: Abi Varela Verified Date/Time: 05/07/2018 13:56:54 Reading Location: [address] Radiology Reading Room CYTOMEGALOVIRUS ANTIBODY, [id number] 12:48:00 Test Item Value Reference Range Interpretation Comments CYTOMEGALOVIRUS, IGG (BEAKER) Positive Negative, Equivocal A (test code = 3429) CMV IgG Result Interpretation: </= 0.8 Al Negative 0.9-1.0 Al Equivocal >/=1.1 Al PositiveCYTOMEGALOVIRUS ANTIBODY, [id number] 12:48:00 Test Item Value Reference Range Interpretation Comments CYTOMEGALOVIRUS IGM ANTIBODY Negative Negative, Equivocal (BEAKER) (test code = 3437) CMV IgM Result Interpretation: </= 0.8 Al Negative 0.9-1.0 Al Equivocal >/= 1.1 Al PositiveEBV ANTIBODY, [id number] 12:48:00 Test Item Value Reference Range Interpretation Comments ISRAEL SMILEY VIRAL CAPSID Positive Negative, Equivocal A ANTIGEN IGG (BEAKER) (test code = 3415) [place] Smiley Viral Capsid Antigen IgG Result Interpretation: </= 0.8 Al Negative 0.9-1.0 Al Equivocal >/= 1.1 Al PositiveEBV ANTIBODY, IGM 2018-05-07 12:48:00 Test Item Value Reference Range Interpretation Comments ISRAEL SMILEY VIRAL CAPSID Negative Negative, Equivocal ANTIGEN IGM (BEAKER) (test code = 3418) [place] Smiley Viral Capsid Antigen IgM Result Interpretation: </= 0.8 Al Negative 0.9-1.0 Al Equivocal >/= 1.1 Al PositiveURINALYSIS W/ [id number] 09:47:00 Test Item Value Reference Range Interpretation Comments COLOR (BEAKER) (test code = 470) Yellow CLARITY (BEAKER) (test code = 469) Clear SPECIFIC GRAVITY UA (BEAKER) (test 1.013 1.001-1.035 code = 468) PH UA (BEAKER) (test code = 467) 6.5 5.0-8.0 PROTEIN UA (BEAKER) (test code = Negative Negative 464) GLUCOSE UA (BEAKER) (test code = Negative Negative 365) KETONES UA (BEAKER) (test code = Negative Negative 371) BILIRUBIN UA (BEAKER) (test code = Negative Negative 462) BLOOD UA (BEAKER) (test code = 461) Negative Negative NITRITE UA (BEAKER) (test code = Negative Negative 465) LEUKOCYTE ESTERASE UA (BEAKER) Negative Negative (test code = 466) UROBILINOGEN UA (BEAKER) (test code 0.2 mg/dL 0.2-1.0 = 463) RBC UA (BEAKER) (test code = 519) 0 /HPF WBC UA (BEAKER) (test code = 520) 1 /HPF BACTERIA (BEAKER) (test code = 517) Rare MUCUS (BEAKER) (test code = 1574) Rare SOURCE(BEAKER) (test code = 2795) [id number] 09:34:00 Test Item Value Reference Range Interpretation Comments T4 TOTAL (BEAKER) (test code = 895) 3.9 ug/dL 4.9-11.7 L [id number] 09:34:00 Test Item Value Reference Range Interpretation Comments THYROID STIMULATING HORMONE 2.84 uIU/mL 0.35-4.94 (BEAKER) (test code = 772) [id number] 09:34:00 Test Item Value Reference Range Interpretation Comments T3 TOTAL (BEAKER) (test code = 656) 67 ng/dL 48-159 VITAMIN D, [id number] 09:34:00 Test Item Value Reference Range Interpretation Comments VITAMIN D 25-OH (BEAKER) (test 31.0 ng/mL 6.6-49.9 code = 2764) Effective 05/29/2017: Reference Range ChangeNew: 6.6-49.9 ng/mL Previous: 13.0-47.8 ng/mLRecommended Vitamin D Target Range: 30.0-40.0 ng/mLCALCIUM, [id number] 09:33:00 Test Item Value Reference Range Interpretation Comments CALCIUM IONIZED (BEAKER) (test 1.15 mmol/L 1.12-1.27 code = 698) PH, BLOOD (BEAKER) (test code = 7.41 1810) [id number] 09:28:00 Test Item Value Reference Range Interpretation Comments PROSTATE SPECIFIC ANTIGEN (BEAKER) 0.3 ng/mL 0.0-4.0 (test code = 844) ALPHA FETOPROTEIN (AFP), TUMOR [id number] 09:28:00 Test Item Value Reference Range Interpretation Comments ALPHA-FETOPROTEIN (BEAKER) (test 7.2 ng/mL <10.0 code = 1094) HEPATITIS B CORE ANTIBODY, [id number] 09:28:00 Test Item Value Reference Range Interpretation Comments HEPATITIS B CORE IGM ANTIBODY Nonreactive Nonreactive (BEAKER) (test code = 645) HEPATITIS C [id number] 09:28:00 Test Item Value Reference Range Interpretation Comments HEPATITIS C ANTIBODY (BEAKER) Nonreactive Nonreactive (test code = 367) HIV-1 ANTIGEN WITH HIV-1/2 [id number] 09:28:00 Test Item Value Reference Range Interpretation Comments HIV-1 ANTIGEN WITH HIV 1\\T\\2 Nonreactive Nonreactive ANTIBODY (2) (BEAKER) (test code = 2586) BLOOD GAS, [id number] 09:21:00 Test Item Value Reference Range Interpretation Comments PH ARTERIAL (BEAKER) (test code = 7.45 7.35-7.45 383) PCO2 ARTERIAL (BEAKER) (test code 29 mmHg 35-45 L = 384) PO2 ARTERIAL (BEAKER) (test code 151 mmHg 80-90 H = 385) O2 SATURATION ARTERIAL (BEAKER) 99.1 % 96.0-97.0 H (test code = 386) HCO3 ARTERIAL (BEAKER) (test code 20 mmol/L 21-29 L = 388) BASE EXCESS ARTERIAL (BEAKER) -3.2 mmol/L -2.0-3.0 L (test code = 387) PATIENT TEMPERATURE (BEAKER) 37.0 C (test code = 1818) FIO2 (BEAKER) (test code = 1819) 21.0 % [id number] 09:17:00 Test Item Value Reference Range Interpretation Comments MAGNESIUM (BEAKER) (test code = 1.8 mg/dL 1.6-2.6 627) [id number] 09:17:00 Test Item Value Reference Range Interpretation Comments PHOSPHORUS (BEAKER) (test code = 2.8 mg/dL 2.3-4.7 604) URIC [id number] 09:17:00 Test Item Value Reference Range Interpretation Comments URIC ACID (BEAKER) (test code = 8.1 mg/dL 2.6-7.2 H 773) Specimen slightly ictericCOMPREHENSIVE METABOLIC [id number] 09:17:00 Test Item Value Reference Range Interpretation Comments TOTAL PROTEIN 7.3 gm/dL 6.0-8.3 (BEAKER) (test code = 770) ALBUMIN (BEAKER) 3.3 g/dL 3.5-5.0 L (test code = 1145) ALKALINE PHOSPHATASE 134 U/L 40-150 (BEAKER) (test code = 346) BILIRUBIN TOTAL 2.9 mg/dL 0.2-1.2 H (BEAKER) (test code = 377) SODIUM (BEAKER) (test 141 meq/L 136-145 code = 381) POTASSIUM (BEAKER) 3.6 meq/L 3.5-5.1 (test code = 379) CHLORIDE (BEAKER) 108 meq/L 98-107 H (test code = 382) CO2 (BEAKER) (test 24 meq/L 22-29 code = 355) BLOOD UREA NITROGEN 15 mg/dL 7-21 (BEAKER) (test code = 354) CREATININE (BEAKER) 0.89 mg/dL 0.57-1.25 (test code = 358) GLUCOSE RANDOM 106 mg/dL 70-105 H (BEAKER) (test code = 652) CALCIUM (BEAKER) 9.4 mg/dL 8.4-10.2 (test code = 697) AST (SGOT) (BEAKER) 70 U/L 5-34 H (test code = 353) ALT (SGPT) (BEAKER) 37 U/L 6-55 (test code = 347) EGFR (BEAKER) (test 84 mL/min/1.73 ESTIMA MONIQUE GFR IS code = 1092) sq m NOT ACCURATE CREATININE CLEARANCE IN PREDICTING GLOMERULAR FILTRATION RATE . ESTIMATED GFR I S NOT APPLICABLE FOR DIALYSIS PATIEN TS. Specimen slightly ictericLIPID [id number] 09:17:00 Test Item Value Reference Range Interpretation Comments TRIGLYCERIDES (BEAKER) (test code = 119 mg/dL 540) CHOLESTEROL (BEAKER) (test code = 216 mg/dL 631) HDL CHOLESTEROL (BEAKER) (test code 53 mg/dL = 976) LDL CHOLESTEROL CALCULATED (BEAKER) 139 mg/dL (test code = 633) Triglyceride Reference Range: Low Risk <150 Borderline 150-199 High Risk 200-499 Very High Risk >=500Cholesterol Reference Range: Low Risk <200 Borderline 200-239 High Risk >240HDL Cholesterol Reference Range: Low Risk >=60 High Risk <40LDL Cholesterol Reference Range: Optimal <100 Near Optimal 100-129 Borderline 130-159 High 160-189 Very High >=190 Specimen slightly ictericBILIRUBIN, [id number] 09:17:00 Test Item Value Reference Range Interpretation Comments BILIRUBIN DIRECT (BEAKER) (test 1.1 mg/dL 0.1-0.5 H code = 706) GAMMA GLUTAMYL TRANSFERASE (GGT)2018-05-07 09:17:00 Test Item Value Reference Range Interpretation Comments GAMMA GLUTAMYL TRANSFERASE (BEAKER) 239 U/L 9-64 H (test code = 364) Specimen slightly [id number] 09:09:00 Test Item Value Reference Range Interpretation Comments ALPHA-1 ANTITRYPSIN (BEAKER) 143.30 mg/dL 90.00-200.00 (test code = 502) [id number] 09:08:00 Test Item Value Reference Range Interpretation Comments TRANSFERRIN (BEAKER) (test code = 155 mg/dL 174-382 L 541) Specimen slightly [id number] 09:08:00 Test Item Value Reference Range Interpretation Comments ETHANOL (BEAKER) (test code = 400) < mg/dL <=10 [id number] 08:55:00 Test Item Value Reference Range Interpretation Comments FIBRINOGEN LEVEL (BEAKER) (test 259 mg/dl 225-434 code = 658) [id number] 08:55:00 Test Item Value Reference Range Interpretation Comments PARTIAL THROMBOPLASTIN TIME 37.5 seconds 22.5-36.0 H (BEAKER) (test code = 760) CBC W/PLT COUNT & AUTO [id number] 08:55:00 Test Item Value Reference Range Interpretation Comments WHITE BLOOD CELL COUNT (BEAKER) 3.5 K/ L 3.5-10.5 (test code = 775) RED BLOOD CELL COUNT (BEAKER) 3.72 M/ L 4.63-6.08 L (test code = 761) HEMOGLOBIN (BEAKER) (test code = 13.1 GM/DL 13.7-17.5 L 410) HEMATOCRIT (BEAKER) (test code = 38.5 % 40.1-51.0 L 411) MEAN CORPUSCULAR VOLUME (BEAKER) 103.5 fL 79.0-92.2 H (test code = 753) MEAN CORPUSCULAR HEMOGLOBIN 35.2 pg 25.7-32.2 H (BEAKER) (test code = 751) MEAN CORPUSCULAR HEMOGLOBIN CONC 34.0 GM/DL 32.3-36.5 (BEAKER) (test code = 752) RED CELL DISTRIBUTION WIDTH 13.6 % 11.6-14.4 (BEAKER) (test code = 412) PLATELET COUNT (BEAKER) (test code 83 K/CU MM 150-450 L = 756) MEAN PLATELET VOLUME (BEAKER) 11.0 fL 9.4-12.4 (test code = 754) NUCLEATED RED BLOOD CELLS (BEAKER) 0 /100 WBC 0-0 (test code = 413) NEUTROPHILS RELATIVE PERCENT 41 % (BEAKER) (test code = 429) LYMPHOCYTES RELATIVE PERCENT 39 % (BEAKER) (test code = 430) MONOCYTES RELATIVE PERCENT 12 % (BEAKER) (test code = 431) EOSINOPHILS RELATIVE PERCENT 7 % (BEAKER) (test code = 432) BASOPHILS RELATIVE PERCENT 1 % (BEAKER) (test code = 437) NEUTROPHILS ABSOLUTE COUNT 1.42 K/ L 1.78-5.38 L (BEAKER) (test code = 670) LYMPHOCYTES ABSOLUTE COUNT 1.34 K/ L 1.32-3.57 (BEAKER) (test code = 414) MONOCYTES ABSOLUTE COUNT (BEAKER) 0.43 K/ L 0.30-0.82 (test code = 415) EOSINOPHILS ABSOLUTE COUNT 0.24 K/ L 0.04-0.54 (BEAKER) (test code = 416) BASOPHILS ABSOLUTE COUNT (BEAKER) 0.04 K/ L 0.01-0.08 (test code = 417) IMMATURE GRANULOCYTES-RELATIVE 0 % 0-1 PERCENT (BEAKER) (test code = 2801) PROTHROMBIN [id number] 08:54:00 Test Item Value Reference Range Interpretation Comments PROTIME (BEAKER) (test code = 15.7 seconds 11.7-14.7 H 759) INR (BEAKER) (test code = 370) 1.3 <=5.9 RECOMMENDED COUMADIN/WARFARIN INR THERAPY RANGESSTANDARD DOSE: 2.0 - 3.0 Includes: PROPHYLAXIS forvenous thrombosis, systemic embolization; TREATMENT for venous thrombosis and/or pulmonary embolus.HIGH RISK: Target INR is 2.5-3.5 for patients with mechanical heart valves.[id number] 20:05:00 Test Item Value Reference Range Interpretation Comments FERRITIN (BEAKER) (test code = 361) 967 ng/mL 5-275 H CARCINOEMBRYONIC ANTIGEN (CEA)2018-03-25 17:42:00 Test Item Value Reference Range Interpretation Comments CARCINOEMBRYONIC ANTIGEN (BEAKER) 2.5 ng/mL 0.0-5.0 (test code = 685) IRON, TIBC, % SAT. (WITHOUT FERRITIN)2018-03-25 17:26:00 Test Item Value Reference Range Interpretation Comments IRON (BEAKER) (test code = 547) 191 ug/dL 40-160 H TOTAL IRON BINDING CAPACITY 226 ug/dL 250-450 L (BEAKER) (test code = 769) IRON % SATURATION (2) (BEAKER) 85 % 20-55 H (test code = 2590) BASIC METABOLIC [id number] 17:21:00 Test Item Value Reference Range Interpretation Comments SODIUM (BEAKER) 138 meq/L 136-145 (test code = 381) POTASSIUM (BEAKER) 3.8 meq/L 3.5-5.1 (test code = 379) CHLORIDE (BEAKER) 103 meq/L 98-107 (test code = 382) CO2 (BEAKER) (test 23 meq/L 22-29 code = 355) BLOOD UREA NITROGEN 15 mg/dL 7-21 (BEAKER) (test code = 354) CREATININE (BEAKER) 1.14 mg/dL 0.57-1.25 (test code = 358) GLUCOSE RANDOM 108 mg/dL 70-105 H (BEAKER) (test code = 652) CALCIUM (BEAKER) 10.9 mg/dL 8.4-10.2 H (test code = 697) EGFR (BEAKER) (test 63 mL/min/1.73 ESTIMA MONIQUE GFR IS code = 1092) sq m NOT ACCURATE CREATININE CLEARANCE IN PREDICTING GLOMERULAR FILTRATION RATE . ESTIMATED GFR I S NOT APPLICABLE FOR DIALYSIS PATIEN TS. Specimen moderately ictericHEPATIC FUNCTION [id number] 17:21:00 Test Item Value Reference Range Interpretation Comments TOTAL PROTEIN (BEAKER) (test code = 8.0 gm/dL 6.0-8.3 770) ALBUMIN (BEAKER) (test code = 1145) 3.8 g/dL 3.5-5.0 BILIRUBIN TOTAL (BEAKER) (test code 3.9 mg/dL 0.2-1.2 H = 377) BILIRUBIN DIRECT (BEAKER) (test 1.4 mg/dL 0.1-0.5 H code = 706) ALKALINE PHOSPHATASE (BEAKER) (test 133 U/L 40-150 code = 346) AST (SGOT) (BEAKER) (test code = 70 U/L 5-34 H 353) ALT (SGPT) (BEAKER) (test code = 49 U/L 6-55 347) Specimen moderately ictericPROTHROMBIN [id number] 17:15:00 Test Item Value Reference Range Interpretation Comments PROTIME (BEAKER) (test code = 15.5 seconds 11.7-14.7 H 759) INR (BEAKER) (test code = 370) 1.2 <=5.9 RECOMMENDED COUMADIN/WARFARIN INR THERAPY RANGESSTANDARD DOSE: 2.0 - 3.0 Includes: PROPHYLAXIS forvenous thrombosis, systemic embolization; TREATMENT for venous thrombosis and/or pulmonary embolus.HIGH RISK: Target INR is 2.5-3.5 for patients with mechanical heart valves.CBC W/PLT COUNT & AUTO DIFFERENTIAL 2018-03-25 17:05:00 Test Item Value Reference Range Interpretation Comments WHITE BLOOD CELL COUNT (BEAKER) 5.2 K/ L 3.5-10.5 (test code = 775) RED BLOOD CELL COUNT (BEAKER) 3.80 M/ L 4.63-6.08 L (test code = 761) HEMOGLOBIN (BEAKER) (test code = 13.9 GM/DL 13.7-17.5 410) HEMATOCRIT (BEAKER) (test code = 40.3 % 40.1-51.0 411) MEAN CORPUSCULAR VOLUME (BEAKER) 106.1 fL 79.0-92.2 H (test code = 753) MEAN CORPUSCULAR HEMOGLOBIN 36.6 pg 25.7-32.2 H (BEAKER) (test code = 751) MEAN CORPUSCULAR HEMOGLOBIN CONC 34.5 GM/DL 32.3-36.5 (BEAKER) (test code = 752) RED CELL DISTRIBUTION WIDTH 14.4 % 11.6-14.4 (BEAKER) (test code = 412) PLATELET COUNT (BEAKER) (test code 85 K/CU MM 150-450 L = 756) MEAN PLATELET VOLUME (BEAKER) 10.6 fL 9.4-12.4 (test code = 754) NUCLEATED RED BLOOD CELLS (BEAKER) 0 /100 WBC 0-0 (test code = 413) NEUTROPHILS RELATIVE PERCENT 57 % (BEAKER) (test code = 429) LYMPHOCYTES RELATIVE PERCENT 23 % (BEAKER) (test code = 430) MONOCYTES RELATIVE PERCENT 15 % (BEAKER) (test code = 431) EOSINOPHILS RELATIVE PERCENT 4 % (BEAKER) (test code = 432) BASOPHILS RELATIVE PERCENT 1 % (BEAKER) (test code = 437) NEUTROPHILS ABSOLUTE COUNT 3.00 K/ L 1.78-5.38 (BEAKER) (test code = 670) LYMPHOCYTES ABSOLUTE COUNT 1.18 K/ L 1.32-3.57 L (BEAKER) (test code = 414) MONOCYTES ABSOLUTE COUNT (BEAKER) 0.77 K/ L 0.30-0.82 (test code = 415) EOSINOPHILS ABSOLUTE COUNT 0.23 K/ L 0.04-0.54 (BEAKER) (test code = 416) BASOPHILS ABSOLUTE COUNT (BEAKER) 0.04 K/ L 0.01-0.08 (test code = 417) IMMATURE GRANULOCYTES-RELATIVE 0 % 0-1 PERCENT (BEAKER) (test code = 2801) MR, ABDOMEN, [id number] 09:02:00Pt is Self ReferredTRIPLE PHASE [id number] PHASE [id number] REPORT MRI OF THE ABDOMEN CLINICAL HISTORY: Cirrhosis TECHNIQUE: Multiplanar and multisequence MR images of the abdomen are obtained before and after intravenous contrast administration. Contrast is administered to evaluate the solid organs. COMPARISON: None. DISCUSSION: LIVER: Cirrhotic morphology of the liver. There are numerous regenerative and dysplastic nodules throughout the liver. There is a 1.1 cm focus of enhancement in segment IVb on image 51 of the arterial phase which demonstrates possible washout on the portal venous and delayed phases. There is also a 9 mmfocus of vague enhancement in segment two of the liver on image 47 of the arterial phase without definite washout or pseudocapsule. No discrete focus of enhancement measuring greater than 2 cm is identified. There are also multiple T2 hyperintense cysts in the liver, largest measuring 1.2 cm in segment VIII.BILIARY: No biliary ductal dilation. Gallbladder unremarkable.PANCREAS: No pancreatic ductal dilation. No solid pancreatic lesion. There are multiple T2 hyperintense cysts in the liver, largest measuring 2 cm at the pancreatic neck and contains internal septation. The next largest cyst is an 8 mm cyst at the pancreatic tail. There are additional scattered sub-5 mm cysts throughout the pancreas.SPLEEN: Spleen is enlarged measuring 13.4 cm in length. ADRENALS: No nodule.KIDNEYS: No hydronephrosis or hydroureter. No solid renal lesion. PERITONEUM/RETROPERITONEUM: No significant ascites.LYMPH NODES: No lymphadenopathy. VESSELS: There is a large splenorenal shunt and prominent esophageal varices.The main portal vein is patent measuring 0.8 cm. The splenic vein and SMV are also patent. Abdominalaorta is normal in caliber. BONES AND SOFT TISSUES: No suspicious osseous lesion. IMPRESSION:1. Single 1.1 cm enhancing lesion in segment IVb with possible washout, but no definite capsule.2. There areadditional numerous regenerative and dysplastic nodules, none of which measure greater than 2 cm or meet other criteria for HCC.3. Multiple cysts in the pancreas, largest measuring 2 cm at the pancreatic neck. No associated pancreatic ductal dilation or solid pancreatic lesion. Recommend attention on routine follow-up imaging.4. Cirrhosis, splenomegaly, and findings of portal hypertension. No significant ascites. Enlarged esophageal varices and splenorenal shunt. Main portal vein is patent measuring0.8 cm. Signed: John Baez MDReport Verified Date/Time: 03/13/2018 09:02:53 Reading Location: [address] Radiology Reading Room [id number] 14:41:00 Test Item Value Reference Range Interpretation Comments POC-CREATININE 0.9 mg/dL 0.6-1.3 TESTED AT [facility] ([facility]) ([facility] [place] code = 1859) [address] POC-EGFR ([facility]) 83 mL/min/1.73M2 (test code = 1860) HEPATITIS C PCR, [id number] 20:19:00 Test Item Value Reference Range Interpretation Comments HCV RESULT COMPONENT HCV RNA not detected HCV RNA not detected ([facility]) (test code = 2699) This test uses a Real-Time Polymerase Chain Reaction (RT-PCR) methodology and was performed using ERICA Ampliprep/ERICA TaqMan HCV test kit version 2.0 ([employer]Reportable range for this assay is 15 - 100,000,000 IU per mL (1.18 - 8.00 Log IU/mL).HEPATITIS B PCR, QUANTITATIVE 2018-03-05 06:52:00 Test Item Value Reference Range Interpretation Comments HBV RESULT COMPONENT HBV DNA not detected HBV DNA not detected (BEAKER) (test code = 2701) This test uses a Real-Time Polymerase Chain Reaction (RT-PCR) methodology and was performed using ERICA AmpliPrep/ERICA TaqMan HBV Test, v2.0 ([employer]Reportable range for this assay is 20 - 170,000,000 IU per mL (1.30 - 8.23 Log IU/mL).HEPATITIS B CORE ANTIBODY, [id number] 16:23:00 Test Item Value Reference Range Interpretation Comments HEPATITIS B CORE TOTAL ANTIBODY Nonreactive Nonreactive (BEAKER) (test code = 497) HEPATITIS B SURFACE [id number] 15:18:00 Test Item Value Reference Range Interpretation Comments HEPATITIS B SURFACE ANTIBODY < mIU/mL <8.0 (BEAKER) (test code = 647) HEPATITIS A ANTIBODY, [id number] 15:18:00 Test Item Value Reference Range Interpretation Comments HEPATITIS A IGG ANTIBODY (BEAKER) Reactive Nonreactive A (test code = 2797) HEPATITIS B SURFACE [id number] 15:01:00 Test Item Value Reference Range Interpretation Comments HEPATITIS B SURFACE ANTIGEN (2) Nonreactive Nonreactive (BEAKER) (test code = 2585) BASIC METABOLIC [id number] 14:44:00 Test Item Value Reference Range Interpretation Comments SODIUM (BEAKER) 139 meq/L 136-145 (test code = 381) POTASSIUM (BEAKER) 3.6 meq/L 3.5-5.1 (test code = 379) CHLORIDE (BEAKER) 103 meq/L 98-107 (test code = 382) CO2 (BEAKER) (test 26 meq/L 22-29 code = 355) BLOOD UREA NITROGEN 13 mg/dL 7-21 (BEAKER) (test code = 354) CREATININE (BEAKER) 0.88 mg/dL 0.57-1.25 (test code = 358) GLUCOSE RANDOM 123 mg/dL 70-105 H (BEAKER) (test code = 652) CALCIUM (BEAKER) 9.9 mg/dL 8.4-10.2 (test code = 697) EGFR (BEAKER) (test 85 mL/min/1.73 ESTIMA MONIQUE GFR IS code = 1092) sq m NOT ACCURATE CREATININE CLEARANCE IN PREDICTING GLOMERULAR FILTRATION RATE . ESTIMATED GFR I S NOT APPLICABLE FOR DIALYSIS PATIEN TS. Specimen moderately ictericHEPATIC FUNCTION [id number] 14:44:00 Test Item Value Reference Range Interpretation Comments TOTAL PROTEIN (BEAKER) (test code = 7.9 gm/dL 6.0-8.3 770) ALBUMIN (BEAKER) (test code = 1145) 3.6 g/dL 3.5-5.0 BILIRUBIN TOTAL (BEAKER) (test code 3.5 mg/dL 0.2-1.2 H = 377) BILIRUBIN DIRECT (BEAKER) (test 1.3 mg/dL 0.1-0.5 H code = 706) ALKALINE PHOSPHATASE (BEAKER) (test 143 U/L 40-150 code = 346) AST (SGOT) (BEAKER) (test code = 76 U/L 5-34 H 353) ALT (SGPT) (BEAKER) (test code = 38 U/L 6-55 347) Specimen moderately ictericPROTHROMBIN [id number] 14:35:00 Test Item Value Reference Range Interpretation Comments PROTIME (BEAKER) (test code = 16.2 seconds 11.7-14.7 H 759) INR (BEAKER) (test code = 370) 1.3 <=5.9 RECOMMENDED COUMADIN/WARFARIN INR THERAPY RANGESSTANDARD DOSE: 2.0 - 3.0 Includes: PROPHYLAXIS forvenous thrombosis, systemic embolization; TREATMENT for venous thrombosis and/or pulmonary embolus.HIGH RISK: Target INR is 2.5-3.5 for patients with mechanical heart valves.
[2020-11-25 22:03] LABS: Absolute Lymphocytes (CBC) 0.8 K/uL (0.7-4.9); Basophils % 0.3 % (0-1.3); Hematocrit 33.6 % (39.6-49.0); Lymphocytes % 20.6 % (15.3-44.8); MPV 9.9 fL (7.6-11.3); RBC Red Blood Cell Count 3.06 M/uL (4.33-5.43)
[2020-11-25 22:18] LABS: Protime INR 1.9
[2020-11-25 22:27] LABS: Albumin 2.2 g/dL (3.4-5.0); Bilirubin Direct 3.7 mg/dL (0-0.2); Potassium 3.9 mmol/L (3.5-5.1); Protein, Total 7.6 g/dL (6.4-8.2)
[2020-11-25 22:29] LABS: Bilirubin Total 7.9 mg/dL (0.2-1.0)
[2020-11-25 22:35] LABS: Anisocytosis 1+; Blood Morphology Comment NOTED (NOT SEEN); Macrocytosis 2+; Platelet Estimate DECR; White Blood Cell Scan OK (OK)
[2020-11-26] MEDS ORDERED: NA CHLORIDE 0.9% 1,000 ML ONE (03:25)
--- NOTE | 2020-11-26 05:05 | ER ---
Nurse's Notes [facility] Name: Ivette Padilla Age: 75 yrs Sex: Male : 1945 Arrival Date: 11/25/2020 Time: 20:40 Bed 7 Private MD: Diagnosis: Hemoptysis;Hyperbilirubinemia Presentation: 11/25 21:00 Chief complaint: Patient states: today morning i spitted out of blood then tonight I rr5 spitted again blood. I have a history of ulcer they did endoscopy this was the same symptoms a year ago. patient taking ASA daily. Coronavirus screen: Client denies travel out of the [place] in the last 14 days. Client reports previous positive COVID test result. Date of collection: August 2020. Ebola Screen: Patient negative for fever greater than or equal to 101.5 degrees Fahrenheit, and additional compatible Ebola Virus Disease symptoms Patient denies exposure to infectious person. Patient denies travel to an Ebola-affected area in the 21 days before illness onset. Initial Sepsis Screen: Does the patient meet any 2 criteria? No. Patient's initial sepsis screen is negative. Does the patient have a suspected source of infection? No. Patient's initial sepsis screen is negative. Risk Assessment: Do you want to hurt yourself or someone else? Patient reports no desire to harm self or others. Onset of symptoms was November 25, 2020. 21:00 Method Of Arrival: Ambulatory rr5 21:00 Acuity: JADEN 3 rr5 21:00 Note denies N/V/D fever, last BM today brown, normal consistency as stated by patient. rr5 Historical: - Allergies: 21:11 NKA; rr5 - Home Meds: 21:11 pantoprazole oral oral [Active]; amlodipine oral [Active]; furosemide Oral [Active]; rr5 amiloride 5 mg oral tab [Active]; Xifaxan oral oral [Active]; Metoprolol Tartrate Oral [Active]; eszopiclone oral oral [Active]; Famotidine Oral [Active]; Aspirin Oral [Active]; - PMHx: 21:11 Cirrhosis; esophageal varices; Hypertension; GERD; rr5 - PSHx: 21:11 endoscopy; Heart stents; rr5 - Immunization history:: Adult Immunizations up to date. - Social history:: Smoking status: Patient reports the use of cigarette tobacco products, Patient/guardian denies using alcohol, street drugs. Screenin:59 Abuse screen: Denies threats or abuse. Denies injuries from another. Nutritional rv screening: No deficits noted. Tuberculosis screening: No symptoms or risk factors identified. Fall Risk IV access (20 points). Assessment: 21:58 General: Appears in no apparent distress. comfortable, Behavior is calm, cooperative. rv Pain: Complains of pain in abdomen. Neuro: Level of Consciousness is awake, alert, obeys commands, Oriented to person, place, time, situation. Cardiovascular: Capillary refill < 3 seconds. Respiratory: Airway is patent Respiratory effort is even, unlabored, Respiratory pattern is regular, symmetrical. GI: Reports spitting out of blood. : No signs and/or symptoms were reported regarding the genitourinary system. EENT: No signs and/or symptoms were reported regarding the EENT system. Derm: Skin is intact, is healthy with good turgor, Skin is normal. Musculoskeletal: Circulation, motion, and sensation intact. Capillary refill < 3 seconds. 11/26 03:07 Reassessment: Patient appears in no apparent distress at this time. Patient and/or mg2 family updated on plan of care and expected duration. Pain level reassessed. SRI Miller- hospitalist at bedside advising admission. 07:36 Reassessment: Dr. Bob at bedside discussing plan of care with patient. Pt prefers to ss be transferred to [facility] because his Liver specialist is there, but currently, [facility] is at capacity and there is no bed availability. Dr. Bob states he will attempt to get ahold of Dr. Pizarro, patient's GI doctor who is not airfield operations specialist and see if perhaps he will come see patient this weekend or possibly be transferred to another facility for higher level of care. General: Appears in no apparent distress. comfortable, Behavior is calm, cooperative. Pain: Denies pain. Neuro: Level of Consciousness is awake, alert, obeys commands, Oriented to person, place, time, situation. Cardiovascular: Capillary refill < 3 seconds is brisk in bilateral fingers Patient's skin is warm and dry. Respiratory: Reports cough that is to clear throat. Small amount of blood present in emesis bag after clearing throat. Airway is patent Respiratory effort is even, unlabored, Respiratory pattern is regular, symmetrical, Denies pain with respiration, pain with cough, pain with movement. GI: Abdomen is non-distended, Patient currently denies abdominal pain, nausea. : No signs and/or symptoms were reported regarding the genitourinary system. Denies burning with urination, urinary frequency. Derm: Skin is intact, is healthy with good turgor, Skin is dry, Skin is pink, warm \T\ dry. normal. Musculoskeletal: Range of motion: intact in all extremities, Swelling absent. 10:15 Reassessment: Attempted to call report to [facility] who stated to call back in 20 ss minutes. Pt notified and verbalizes understanding. Pt has no complaints at this time. Awaiting for Protonix drip and Octreotide drip to come from pharmacy. 11:00 Reassessment: Report given to STACEY Crawford at [facility]. Awaiting EMS transportation. ss 11:25 Reassessment: Patient appears in no apparent distress at this time. Patient and/or ss family updated on plan of care and expected duration. Pain level reassessed. Patient is alert, oriented x 3, equal unlabored respirations, skin warm/dry/pink. Pain: Denies pain. Respiratory: Airway is patent Respiratory effort is even, unlabored, Respiratory pattern is regular, symmetrical. Vital Signs: 11/25 21:00 BP 159 / 60; Pulse 61; Resp 18; Temp 98.3; Pulse Ox 99% ; Weight 79.38 kg; Height 5 ft. rr5 6 in. (167.64 cm); Pain 0/10; 11/26 01:11 BP 161 / 52; Pulse 58; Resp 16; Pulse Ox 96% on R/A; rv 03:07 BP 152 / 54; Pulse 60; Resp 18; Pulse Ox 98% on R/A; mg2 04:43 BP 149 / 55; Pulse 59; Resp 18; Pulse Ox 98% ; mg2 07:00 BP 147 / 52; Pulse 56; Resp 18; Pulse Ox 97% ; sv 07:45 Temp 98.3(TE); ss 07:45 Pain 0/10; ss 10:14 BP 151 / 52; Pulse 58; Resp 17; Pulse Ox 98% ; Pain 0/10; ss 11:01 BP 164 / 55; Pulse 59; Resp 18; Pulse Ox 99% ; sv 11:24 BP 164 / 55; Pulse 56; Resp 16; Pulse Ox 99% on R/A; Pain 0/10; ss 11/25 21:00 Body Mass Index 28.25 (79.38 kg, 167.64 cm) rr5 ED Course: 11/25 20:40 Patient arrived in ED. cl3 21:08 Triage completed. rr5 21:11 Petros Osuna MD is Attending Physician. mh7 21:12 Arm band placed on right wrist. rr5 21:21 Farhat Loya, RN is Primary Nurse. rv 21:51 CXR XRAY: PORTABLE In Process Unspecified. EDMS 21:51 Inserted saline lock: 20 gauge in right antecubital area, using aseptic technique. oe Blood collected. 22:00 Patient has correct armband on for positive identification. rv 22:30 Notified ED physician of a critical lab result(s). BILIRUBIN 7.9. rv 23:56 CT Chest For PE Angio In Process Unspecified. EDMS 23:56 CT Abd/Pelvis - IV Contrast Only In Process Unspecified. EDMS 04 03:09 No provider procedures requiring assistance completed. Patient admitted, IV remains in mg2 place. 03:09 COVID swab sent to lab. mg2 03:[address] [facility]. pt. see liver Dr. Pedraza. spoke with Cesar Saravia. ar5 03:20 Per Cesar if we down grade him to a med surg from a tele bed then he will be able to ar5 get a bed. 03:49 Per Cesar we are waiting to do until we have a confirmed bed. ar5 07:53 Attending Physician role handed off by Petros Osuna MD rn 07:53 Wu Bob MD is Attending Physician. rn 09:02 initiated a transfer with Ayaka from the [facility]. eb 09:13 connected the GI airfield operations specialist for [facility] with Dr. Bob for patient transfer eb consultation. 09:30 connected the hospitalist airfield operations specialist for [facility] with Dr. Bob for patient eb transfer consultation. 09:34 administrative approval given by Ayaka Geronimo Rn/ patient has been accepted to [facility] Transplant Floor [address]. Joaquín Gunn has accepted the patient in transfer/ report to be called to [phone]. 10:14 Inserted saline lock: 20 gauge in left antecubital area, using aseptic technique. 11:01 Primary Nurse role handed off by Farhat Loya RN 11:01 Jamila Wells, STACEY is Primary Nurse. Administered Medications: 09:53 Drug: Rocephin (cefTRIAXone) 1 grams Route: IV; Rate: calculated rate; Site: right ss antecubital; 10:32 Follow up: IV Status: Completed infusion ss 09:55 Drug: ProTONIX 40 mg Route: IVP; Site: right antecubital; ss 10:33 Follow up: Response: No adverse reaction ss 09:58 Drug: Octreotide 50 mcg Route: IV; Rate: calculated rate; Site: right antecubital; ss 10:33 Follow up: IV Status: Completed infusion ss 10:32 Drug: Octreotide Infusion (50 mcg/hr) - (Octreotide 500 mcg, NS 0.9% 500 ml) Route: IV; ss Rate: 50 ml/hr; Site: left antecubital; 10:33 Follow up: IV Status: Infusion continued upon transfer ss 10:33 Drug: ProTONIX 8 mg/hr Route: IV; Rate: 25 ml/hr; Site: right antecubital; ss 10:33 Follow up: IV Status: Infusion continued upon transfer ss Outcome: 05:05 ER care complete, transfer ordered by . [facility] 12:29 Transferred by ground EMS to [facility], Transfer form completed. X-rays sent w/ patient. 12:29 Condition: good 12:29 Instructed on the need for transfer. 12:37 Patient left the ED. Signatures: Dispatcher [employer] EDMS Maral Pichardo RN RN Wu Bob MD MD rn Smirch, Shelby, RN RN Booker Li Elizabeth eb Gardose, Michele, RN RN mg2 Farhat Loya, Jack Arellano RN, RN RN rr5 Lauren Marrero5 Jerrica Gamble cl3 Petros Osuna MD MD [facility] Corrections: (The following items were deleted from the chart) 03:09 03:07 Reassessment: Patient appears in no apparent distress at this time. Patient mg2 and/or family updated on plan of care and expected duration. Pain level reassessed. mg2 : 11:00 Reassessment: Report given to STACEY Crawford at [facility]. Awaiting EMS ss transportation ss
--- NOTE | 2020-11-26 05:05 | EDPHYS ---
Physician Documentation [facility] Name: Ivette Padilla Age: 75 yrs Sex: Male : 1945 Arrival Date: 11/25/2020 Time: 20:40 Bed 7 Private MD: ED Physician Wu Bob HPI: 11/25 21:59 This 75 yrs old Male presents to ER via Ambulatory with complaints of mh7 Coughing Up Blood. 21:59 The patient or guardian reports cough, that is intermittent, described as mild, with mh7 productive sputum, that is bloody. Onset: The symptoms/episode began/occurred this morning, today. Severity of symptoms: At their worst the symptoms were moderate, earlier today, in the emergency department the symptoms have resolved, and did so just prior to arrival. Modifying factors: The symptoms are alleviated by nothing, the symptoms are aggravated by nothing. Associated signs and symptoms: Pertinent negatives: chest pain, diarrhea, ear ache, fever, nausea, rhinorrhea, sore throat, vomiting. Historical: - Allergies: 21:11 NKA; rr5 - Home Meds: 21:11 pantoprazole oral oral [Active]; amlodipine oral [Active]; furosemide Oral [Active]; rr5 amiloride 5 mg oral tab [Active]; Xifaxan oral oral [Active]; Metoprolol Tartrate Oral [Active]; eszopiclone oral oral [Active]; Famotidine Oral [Active]; Aspirin Oral [Active]; - PMHx: 21:11 Cirrhosis; esophageal varices; Hypertension; GERD; rr5 - PSHx: 21:11 endoscopy; Heart stents; rr5 - Immunization history:: Adult Immunizations up to date. - Social history:: Smoking status: Patient reports the use of cigarette tobacco products, Patient/guardian denies using alcohol, street drugs. ROS: 21:59 Constitutional: Negative for fever, chills, and weight loss, Eyes: Negative for injury, mh7 pain, redness, and discharge, ENT: Negative for injury, pain, and discharge, Neck: Negative for injury, pain, and swelling, Cardiovascular: Negative for chest pain, palpitations, and edema, Abdomen/GI: Negative for abdominal pain, nausea, vomiting, diarrhea, and constipation, Back: Negative for injury and pain, : Negative for injury, bleeding, discharge, and swelling, MS/Extremity: Negative for injury and deformity, Skin: Negative for injury, rash, and discoloration, Neuro: Negative for headache, weakness, numbness, tingling, and seizure, Psych: Negative for depression, anxiety, suicide ideation, homicidal ideation, and hallucinations, Allergy/Immunology: Negative for hives, rash, and allergies, Endocrine: Negative for neck swelling, polydipsia, polyuria, polyphagia, and marked weight changes, Hematologic/Lymphatic: Negative for swollen nodes, abnormal bleeding, and unusual bruising. Exam: 21:59 Constitutional: This is a well developed, well nourished patient who is awake, alert, mh7 and in no acute distress. Head/Face: Normocephalic, atraumatic. Eyes: Pupils equal round and reactive to light, extra-ocular motions intact. Lids and lashes normal. Conjunctiva and sclera are non-icteric and not injected. Cornea within normal limits. Periorbital areas with no swelling, redness, or edema. ENT: Nares patent. No nasal discharge, no septal abnormalities noted. Tympanic membranes are normal and external auditory canals are clear. Oropharynx with no redness, swelling, or masses, exudates, or evidence of obstruction, uvula midline. Mucous membranes moist. Neck: Trachea midline, no thyromegaly or masses palpated, and no cervical lymphadenopathy. Supple, full range of motion without nuchal rigidity, or vertebral point tenderness. No Meningismus. Chest/axilla: Normal chest wall appearance and motion. Nontender with no deformity. No lesions are appreciated. Cardiovascular: Regular rate and rhythm with a normal S1 and S2. No gallops, murmurs, or rubs. Normal PMI, no JVD. No pulse deficits. Respiratory: Lungs have equal breath sounds bilaterally, clear to auscultation and percussion. No rales, rhonchi or wheezes noted. No increased work of breathing, no retractions or nasal flaring. Abdomen/GI: Soft, non-tender, with normal bowel sounds. No distension or tympany. No guarding or rebound. No evidence of tenderness throughout. 21:59 Back: No spinal tenderness. No costovertebral tenderness. Full range of motion. Skin: Warm, dry with normal turgor. Normal color with no rashes, no lesions, and no evidence of cellulitis. MS/ Extremity: Pulses equal, no cyanosis. Neurovascular intact. Full, normal range of motion. Neuro: Awake and alert, GCS 15, oriented to person, place, time, and situation. Cranial nerves II-XII grossly intact. Motor strength 5/5 in all extremities. Sensory grossly intact. Cerebellar exam normal. Normal gait. Psych: Awake, alert, with orientation to person, place and time. Behavior, mood, and affect are within normal limits. 21:59 Abdomen/GI: Rectal exam: is unremarkable, Stool: brown, guaiac negative, hemorrhoid(s), are not appreciated, mass, is not appreciated, swelling, is not appreciated, tenderness, is not appreciated, fecal impaction, is not appreciated, the exam is chaperoned by the nurse. Vital Signs: 21:00 BP 159 / 60; Pulse 61; Resp 18; Temp 98.3; Pulse Ox 99% ; Weight 79.38 kg; Height 5 ft. rr5 6 in. (167.64 cm); Pain 0/10; 0410 01:11 BP 161 / 52; Pulse 58; Resp 16; Pulse Ox 96% on R/A; rv 03:07 BP 152 / 54; Pulse 60; Resp 18; Pulse Ox 98% on R/A; mg2 04:43 BP 149 / 55; Pulse 59; Resp 18; Pulse Ox 98% ; mg2 07:00 BP 147 / 52; Pulse 56; Resp 18; Pulse Ox 97% ; sv 07:45 Temp 98.3(TE); ss 07:45 Pain 0/10; ss 10:14 BP 151 / 52; Pulse 58; Resp 17; Pulse Ox 98% ; Pain 0/10; ss 11:01 BP 164 / 55; Pulse 59; Resp 18; Pulse Ox 99% ; sv 11:24 BP 164 / 55; Pulse 56; Resp 16; Pulse Ox 99% on R/A; Pain 0/10; ss 04/ 21:00 Body Mass Index 28.25 (79.38 kg, 167.64 cm) rr5 MDM: 05:01 Differential Diagnosis: Obstructed Airway Bronchitis Viral Syndrome Pneumonia Other mh7 Hemoptysis. Data reviewed: vital signs, nurses notes, lab test result(s), CBC, electrolytes, EKG, radiologic studies, CT scan, plain films. Data interpreted: Pulse oximetry: on room air is 98 %. Interpretation: normal. Counseling: I had a detailed discussion with the patient and/or guardian regarding: the historical points, exam findings, and any diagnostic results supporting the discharge/admit diagnosis, the presence of at least one elevated blood pressure reading (>120/80) during this emergency department visit, lab results, radiology results, the need to transfer to another facility, Hospitalist declined admission due to elevated liver enzymes and no available GI coverage.. Response to treatment: the patient's symptoms have mildly improved after treatment. 05:05 Patient medically screened. [facility] 07:06 Transition of care: After a detail discussion of the patient's case, care is [facility] transferred to Wu Bob MD. 07:13 ED course: Pt signed out to me by Dr. Osuna pending transfer attempt to [facility]. Dominic Osuna states patient has hemoptysis, attempted to admit here, Dr. Coles declines admission because of elevated LFTs. . 07:54 ED course: After evaluating patient, does not seem to be hemoptysis with lung rn origination, seems to be regurgitating blood to throat then coughs it up. Denies sob. CT chest without acute finding. Stable vitals and h/h. [facility] without beds. Called Dr. Pizarro given seems like GI issue and is his GI doctor, no answer. Will try back shortly. . 09:01 ED course: No answer or callback from Dr. Pizarro. Called again at 09[address] and [address] answer[address] rn [facility] without beds, will attempt transfer to [facility]. . 11/25 21:19 Order name: Basic Metabolic Panel; Complete Time: 22:57 11/25 21:19 Order name: CBC with Diff; Complete Time: 22:57 11/25 21:19 Order name: Hepatic Function; Complete Time: 22:57 11/25 21:19 Order name: Lipase; Complete Time: 22:57 11/25 21:22 Order name: TS; Complete Time: 01:24 11/25 21:34 Order name: Protime (+inr); Complete Time: 22:57 [facility] 11/25 21:34 Order name: CXR XRAY: PORTABLE 11/25 21:34 Order name: Ptt, Activated; Complete Time: 22:57 [facility] 11/25 21:34 Order name: Troponin (emerg Dept Use Only); Complete Time: 22:57 [facility] 11/25 22:19 Order name: CBC Smear Scan; Complete Time: 22:57 [facility] 11/25 23:01 Order name: CT Chest For PE Angio [facility] 11/25 23:01 Order name: CT Abd/Pelvis - IV Contrast Only [facility] 11/26 03:56 Order name: SARS-COV-2 RT PCR; Complete Time: 07:04 [facility] 11/25 21:19 Order name: IV Saline Lock; Complete Time: 21:58 rv 11/25 21:19 Order name: Labs collected and sent; Complete Time: 21:58 rv Administered Medications: 09:53 Drug: Rocephin (cefTRIAXone) 1 grams Route: IV; Rate: calculated rate; Site: right ss antecubital; 10:32 Follow up: IV Status: Completed infusion 09:55 Drug: ProTONIX 40 mg Route: IVP; Site: right antecubital; 10:33 Follow up: Response: No adverse reaction 09:58 Drug: Octreotide 50 mcg Route: IV; Rate: calculated rate; Site: right antecubital; 10:33 Follow up: IV Status: Completed infusion 10:32 Drug: Octreotide Infusion (50 mcg/hr) - (Octreotide 500 mcg, NS 0.9% 500 ml) Route: IV; ss Rate: 50 ml/hr; Site: left antecubital; 10:33 Follow up: IV Status: Infusion continued upon transfer 10:33 Drug: ProTONIX 8 mg/hr Route: IV; Rate: 25 ml/hr; Site: right antecubital; 10:33 Follow up: IV Status: Infusion continued upon transfer Disposition: 11/26/20 05:05 Transfer ordered to Other Acute Care Facility. Diagnosis are Hemoptysis, Hyperbilirubinemia. - Reason for transfer: Higher level of care. - Accepting physician is Pulmonary. - Condition is Stable. - Problem is new. - Symptoms have improved. Signatures: Dispatcher [employer] Wu Turk MD MD rn Smirch, Shelby, RN RN ss Farhat Loya RN RN rv Jack Leavitt RN RN rr5 Petros Osuna MD MD 7 Corrections: (The following items were deleted from the chart) 03:16 02:55 CORONAVIRUS+MRDEBBIE.BRZ ordered. EDMS EDMS 12:37 05:05 11/26/2020 05:05 Transfer ordered to Other Acute Care Facility. Diagnosis is ss Hemoptysis; Hyperbilirubinemia. Reason for transfer: Higher level of care. Accepting physician is Dr. Fernandez. Condition is Stable. Problem is new. Symptoms have improved. mh7
[2020-11-26] MEDS ORDERED: CEFTRIAXONE/SWI 1gm 1 GM/10 ML SYR ONE (10:00)
[2020-11-26] MEDS ORDERED: PANTOPRAZOLE INJ 80 MG in NA CHLORIDE 0.9% 250 ML IV SCH (10:00)
[2020-11-26] MEDS ORDERED: PANTOPRAZOLE 40 MG INJ ONE (10:00)
[2020-11-26] MEDS ORDERED: OCTREOTIDE 500 MCG in NA CHLORIDE 0.9% 500 ML IV SCH (10:00)
[2020-11-26] MEDS ORDERED: OCTREOTIDE ACETATE 100 MCG/ML ONE (10:00)
--- NOTE | 2020-11-26 11:28 | RAD REPORT ---
EXAM DESCRIPTION: RAD - Chest Single View - 11/25/2020 9:53 pm CLINICAL HISTORY: ABDOMINAL PAIN/ COUGH OUT BLOOD COMPARISON: Two view chest November 25 TECHNIQUE: AP portable chest image was obtained 11/25/2020 9:53 pm . FINDINGS: Lungs are clear. Interstitial pattern matches comparison. Nodular focus in the left midlun g field has not changed and is probably vascular summation artifact. Borderline to mild cardiomegaly is present. No acute vascular engorgement. No measurable pleural effusion and no pneumothorax. No acute bony abnormality seen. No acute aortic findings suspected. IMPRESSION: No acute cardiopulmonary process. No significant change from comparison study.
[2020-11-26 18:21] VITALS: TEMP 98.3
[2020-11-26 18:30] VITALS: BP 164/55; O2SAT 99
--- NOTE | 2020-11-28 10:39 | RAD REPORT ---
EXAM DESCRIPTION: CT - Chest For Pe Angio - 11/26/2020 6:18 am CLINICAL HISTORY: 75 years Male Hemoptysis;Cough COMPARISON: None TECHNIQUE: Images were obtained in axial, sagittal, and coronal planes. Intravenous contrast was adm inistered. 3-D MIP imaging was performed. This exam was performed according to our departmental dose-optimization program which includes use of Automated Exposure Control, adjustment of the mA and/or kV according to patient size and/or use o f iterative reconstruction technique. FINDINGS: No filling defects pulmonary arteries bilaterally. No aortic dilatation or dissection. Mil dly enlarged heart. No pericardial effusion. No pleural effusion on right. Small left pleural effusion. No adenopathy. No pneumothorax. No lung parenchymal infiltrates or nodules seen. No acute osseous abnormality. Nodular hepatic contour indicating sclerotic change. Spleen is prominent in size measuring 12.8 cm in greatest dimension. IMPRESSION: No evidence for pulmonary embolus. No aortic dilatation or dissection. Enlarged heart. Small left pleural effusion. Cirrhotic change involving the liver. Electronically signed by: Maria D Najera MD 11/26/2020 12:11 AM CDT Due to temporary technical issues with the PACS/Fluency reporting system, reports are being signed by the in house radiologist without review as a courtesy to ensure prompt reporting. The interpreting r adiologist is fully responsible for the content of the report.
--- NOTE | 2020-11-28 10:40 | RAD REPORT ---
EXAM DESCRIPTION: CT - Abdomen Pelvis W Contrast - 11/26/2020 6:18 am CLINICAL HISTORY: NAUSEA / VOMITING. COMPARISON: None. TECHNIQUE: CT of the abdomen and pelvis was performed following intravenous administration of iodina monique contrast. Oral contrast was not administered. Axial, coronal, and sagittal soft tissue window rec onstructions were created and sent to PACS. This exam was performed according to our departmental dose-optimization program, which includes autom ated exposure control, adjustment of the mA and/or kV according to patient size and/or use of iterati ve reconstruction technique. FINDINGS: Thoracic: Partially imaged cardiomegaly. Mild interstitial thickening in the lung bases. Hepatobiliary: Grossly nodular liver contour. Numerous small rounded hypodensities throughout the brian er. The hepatic and portal veins are patent. Mild gallbladder wall thickening and possible trace leena cholecystic fluid. Calcified gallstones within the gallbladder. No biliary ductal dilatation. Pancreas: Simple appearing cystic lesion in the pancreatic uncinate process measures 1.3 cm. No dilat ion of the main pancreatic duct. No peripancreatic inflammatory changes. Spleen: Mild splenomegaly, measuring 12.9 cm in length. Gastrointestinal: No evidence of bowel obstruction or perienteric inflammation. The appendix is clayton l. Small amount of fecal material in the colon. Adrenals: No abnormality identified in either adrenal gland. Renal: Few small superior right renal calculi. Punctate inferior left renal calculus. No hydronephros is bilaterally. No concerning parenchymal abnormality in either kidney. Bladder/Reproductive: Mild diffuse bladder wall thickening in the setting of underdistention. No surr ounding inflammatory changes. Mild prostatomegaly. Vascular/Lymphatics: No lymphadenopathy identified by CT size criteria. Abdominal aorta is normal in caliber. Mild paraesophageal varices. Large perisplenic varices with a suspected spontaneous splenore nal shunt. Trace fat stranding at the root of the mesentery. Mild atherosclerosis. The major visceral vessels are patent. Musculoskeletal: No concerning osseous lesion identified. Fluid / peritoneum: Trace perihepatic ascites. Trace pelvic free fluid. No free intraperitoneal air identified. IMPRESSION 1. Sequela of cirrhosis and portal hypertension. Trace perihepatic ascites and pelvic f ree fluid. Prominent perisplenic varices. 2. Patent portal vein. 3. Numerous small hypodensities in the liver. No obvious concerning lesion. Recommend follow-up lillian ging to screen for hepatocellular carcinoma. 4. Cholelithiasis. Mild gallbladder wall thickening and possible trace pericholecystic fluid, nonsp ecific in the setting of cirrhosis/hypoalbuminemia. Correlate for acute cholecystitis. 5. Simple appearing 1.3 cm cystic lesion in the pancreatic uncinate process, likely a side branch I PMN . Recommend follow-up imaging in two years, according to ACR guidelines. 6. Few tiny nonobstructive renal calculi. Electronically signed by: Nisa Sheets MD 11/26/2020 12:16 AM CDT Due to temporary technical issues with the PACS/Fluency reporting system, reports are being signed by the in house radiologist without review as a courtesy to ensure prompt reporting. The interpreting r adiologist is fully responsible for the content of the report.
== END 2020-11-26 12:37 ==
LOC: ER 20:39
DX: R04.2 Hemoptysis (principal); R17 Unspecified jaundice; F17.210 Nicotine dependence, cigarettes, uncomplicated; K74.60 Unspecified cirrhosis of liver; Z20.822 Contact with and (suspected) exposure to COVID-19; I10 Essential (primary) hypertension; K21.9 Gastro-esophageal reflux disease without esophagitis; Z95.5 Presence of coronary angioplasty implant and graft
CPT/HCPCS: 85025; 80048; 36415; 86900; 86850; 85610; 86901; 80076; 85730; 84484; 83690; 71275; 74177; 71045; U0003; Q9967; J2354 ×2; C9113 ×2; J0696; J7050; J7040; J7030; 99285

== ENCOUNTER 2021-01-30 14:35 | Emergency (ER) | payer OTHER ==
[2021-01-30] MEDS ORDERED: NA CHLORIDE 0.9% 1,000 ML ONE (15:41)
[2021-01-30 16:07] LABS: Urine Blood Negative (Negative); Urine Glucose Negative (Negative); Urine Protein Negative (Negative)
[2021-01-30 16:07] LABS: Protime INR 1.82
[2021-01-30 16:10] LABS: Basophils % 0.8 % (0-1.3); Hematocrit 35.3 % (39.6-49.0); Lymphocytes % 33.1 % (15.3-44.8); MPV 10.2 fL (7.6-11.3); RBC Red Blood Cell Count 3.19 M/uL (4.33-5.43)
[2021-01-30 16:26] LABS: ALT/SGPT 44 U/L (12-78); AST/SGOT 68 U/L (15-37); Albumin 2.2 g/dL (3.4-5.0); Alkaline Phosphatase 200 U/L (45-117); BUN Blood Urea Nitrogen 13 mg/dL (7-18); Bicarbonate 29 mmol/L (21-32); Glucose Level 163 mg/dL (74-106); Lipase 111 U/L (73-393); Magnesium 1.8 mg/dL (1.8-2.4); NT PRO-BNP 451 pg/mL (<450); Potassium 3.8 mmol/L (3.5-5.1); Protein, Total 7.4 g/dL (6.4-8.2); Sodium Level 141 mmol/L (136-145); Troponin (Emerg Dept Use Only) < 0.02 ng/mL (0.0-0.045)
[2021-01-30 16:27] LABS: Bilirubin Total 6.1 mg/dL (0.2-1.0)
--- NOTE | 2021-01-30 16:33 | RAD REPORT ---
EXAM DESCRIPTION: RAD - Chest Single View - 01/30/2021 3:55 pm CLINICAL HISTORY: COUGH COMPARISON: Portable November 25 TECHNIQUE: AP portable chest image was obtained 01/30/2021 3:55 pm . FINDINGS: Chronic interstitial lung disease is present. Lung markings are slightly more pronounced a long the left heart border. This could be atelectasis or minimal infiltrate. The left hemithorax volu me is reduced. Heart size and vasculature are mildly prominent but not clearly different. No pneumothorax present. No large pleural effusion. No acute bony abnormality seen. No acute aortic findings suspected. IMPRESSION: Chronic interstitial lung pattern with atelectasis or minimal infiltrate left base.
[2021-01-30 17:36] LABS: Anisocytosis 2+; Blood Morphology Comment NOTED (NOT SEEN); Platelet Estimate DECR; Poikilocytosis 1+; White Blood Cell Scan OK (OK)
--- NOTE | 2021-01-30 18:13 | ER ---
Nurse's Notes [facility] Name: Ivette Padilla Age: 75 yrs Sex: Male : 1945 Arrival Date: 01/30/2021 Time: 14:45 Bed 23 Private MD: Diagnosis: Weakness;Alcoholic cirrhosis of liver without ascites;Encephalopathy, unspecified-hepatic Presentation: 01/30 14:50 Chief complaint: Patient states: Fatigue x 3 days. Pt sees accounting methods analyst Dr. Rhoades with [facility] who wants patient to have labs drawn. Coronavirus screen: Client denies travel out of the [place] in the last 14 days. 14:50 Method Of Arrival: Ambulatory 14:54 Ebola Screen: Patient denies exposure to infectious person. Patient denies travel to an Ebola-affected area in the 21 days before illness onset. Initial Sepsis Screen: Does the patient meet any 2 criteria? No. Patient's initial sepsis screen is negative. Does the patient have a suspected source of infection? No. Patient's initial sepsis screen is negative. Risk Assessment: Do you want to hurt yourself or someone else? Patient reports no desire to harm self or others. Onset of symptoms was January 27, 2021. 14:54 Acuity: JADEN 3 ss Historical: - Allergies: 14:56 NKA; ss - PMHx: 14:56 Cirrhosis; esophageal varices; GERD; Hypertension; ss - PSHx: 14:56 endoscopy; Heart stents; ss - Immunization history:: Adult Immunizations up to date. - Social history:: Smoking status: Patient denies any tobacco usage or history of. - Family history:: not pertinent. Screenin:16 Abuse screen: Denies threats or abuse. Nutritional screening: No deficits noted. vg1 Tuberculosis screening: No symptoms or risk factors identified. Fall Risk No fall in past 12 months (0 pts). No secondary diagnosis (0 pts). IV access (20 points). Ambulatory Aid- None/Bed Rest/Nurse Assist (0 pts). Gait- Normal/Bed Rest/Wheelchair (0 pts) Mental Status- Oriented to own ability (0 pts). Total Quinonez Fall Scale indicates No Risk (0-24 pts). Assessment: 15:15 General: Appears in no apparent distress. comfortable, Behavior is calm, cooperative. vg1 Pain: Denies pain. Neuro: Level of Consciousness is awake, alert, obeys commands, Oriented to person, place, time, situation. Cardiovascular: Patient's skin is warm and dry. Respiratory: Airway is patent Respiratory effort is even, unlabored, Breath sounds are clear bilaterally. GI: No signs and/or symptoms were reported involving the gastrointestinal system. : No signs and/or symptoms were reported regarding the genitourinary system. EENT: Sclera/Cornea jaundice . Derm: Skin is intact, Skin is jaundiced. Musculoskeletal: Circulation, motion, and sensation intact. 16:15 Reassessment: Patient appears in no apparent distress at this time. No changes from vg1 previously documented assessment. Patient and/or family updated on plan of care and expected duration. Pain level reassessed. Patient is alert, oriented x 3, equal unlabored respirations, skin warm/dry/pink. 17:22 Reassessment: Patient appears in no apparent distress at this time. No changes from vg1 previously documented assessment. Patient and/or family updated on plan of care and expected duration. Pain level reassessed. Patient is alert, oriented x 3, equal unlabored respirations, skin warm/dry/pink. Vital Signs: 14:54 BP 134 / 54; Pulse 50; Resp 16; Temp 97.5(TE); Pulse Ox 95% on R/A; Weight 79.38 kg; ss Height 5 ft. 6 in. (167.64 cm); Pain 0/10; 15:16 BP 143 / 55; Pulse 52; Resp 16; Pulse Ox 99% on R/A; vg1 16:00 BP 152 / 61; Pulse 50; Resp 16; Pulse Ox 99% on R/A; vg1 17:00 BP 153 / 51; Pulse 50; Resp 16; Pulse Ox 99% on R/A; vg1 18:28 BP 155 / 58 Supine; Pulse 53; vg1 18:30 BP 147 / 58 Sitting; Pulse 53; vg1 18:32 BP 149 / 56 Standing; Pulse 53; vg1 19:00 BP 155 / 56; Pulse 51; Resp 20; Pulse Ox 99% on R/A; kg 14:54 Body Mass Index 28.25 (79.38 kg, 167.64 cm) ED Course: 14:45 Patient arrived in ED. mr 14:55 Triage completed. ss 14:56 Arm band placed on right wrist. ss 14:58 Irma Noble, RN is Primary Nurse. vg1 15:05 Foster Tai MD is Attending Physician. [facility] 15:17 Patient has correct armband on for positive identification. Placed in gown. Bed in low vg1 position. Call light in reach. Side rails up X 1. Adult w/ patient. 15:42 Initial lab(s) drawn, by me, sent to lab. EKG done. Inserted saline lock: 22 gauge in vg1 left antecubital area, using aseptic technique. Blood collected. 15:55 XRAY Chest (1 view) In Process Unspecified. EDMS 19:19 IV discontinued, intact, bleeding controlled, No redness/swelling at site. Pressure kg dressing applied. 19:19 No provider procedures requiring assistance completed. kg Administered Medications: 15:45 Drug: NS 0.9% 500 ml Route: IV; Rate: bolus; Site: left antecubital; vg1 16:34 Follow up: IV Status: Completed infusion; IV Intake: 500ml vg1 19:20 Follow up: Response: No adverse reaction; Marked relief of symptoms kg 16:34 Drug: NS 0.9% 1000 ml Route: IV; Rate: 125 ml/hr; Site: left antecubital; vg1 19:20 Follow up: Response: No adverse reaction; IV Status: Completed infusion; IV Intake: kg 1000ml 18:19 Drug: ProTONIX (pantoprazole) 40 mg Route: IVP; Site: left antecubital; vg1 19:20 Follow up: Response: No adverse reaction; Marked relief of symptoms kg 18:22 Drug: Lactulose 30 grams Volume: 45 ml; Route: PO; vg1 19:20 Follow up: Response: No adverse reaction; Marked relief of symptoms kg 18:26 Drug: Vitamin K1 (phytonadione) 5 mg Route: Sub-Q; Site: right lower abdomen; vg1 19:20 Follow up: Response: No adverse reaction kg Intake: 16:34 IV: 500ml; Total: 500ml. vg1 19:20 IV: 1000ml; Total: 1500ml. kg Outcome: 18:13 Discharge ordered by . tim 19:19 Discharged to home ambulatory, with significant other. kg 19:19 Condition: improved 19:19 Discharge instructions given to patient, significant other, Instructed on discharge instructions, follow up and referral plans. Demonstrated understanding of instructions, follow-up care, medications, Prescriptions given X 1. 19:21 Patient left the ED. kg Signatures: Dispatcher [employer] EDFoster Vyas MD MD cha Rivera, Mary mr Smirch, Shelby, RN RN Irma Rivers RN RN vg1 Delphine Breen RN RN kg
--- NOTE | 2021-01-30 18:13 | EDPHYS ---
Physician Documentation [facility] Name: Ivette Padilla Age: 75 yrs Sex: Male : 1945 Arrival Date: 01/30/2021 Time: 14:45 Bed 23 Private MD: ED Physician Foster Tai HPI: 01/30 18:02 This 75 yrs old Male presents to ER via Ambulatory with complaints of tim Weakness, Dizziness. 18:02 The patient presents to the emergency department with weakness of the. tim 18:06 cirrhosis with ams. The patient presents with generalized weakness. Onset: The tim symptoms/episode began/occurred 1 day(s) ago. Context: occurred at home. Modifying factors: The symptoms are alleviated by nothing, the symptoms are aggravated by nothing. Associated signs and symptoms: Pertinent positives: confusion. Severity of symptoms: At their worst the symptoms were mild in the emergency department the symptoms are unchanged. Patient's baseline: Neuro: alert and fully oriented. Historical: - Allergies: 14:56 NKA; ss - PMHx: 14:56 Cirrhosis; esophageal varices; GERD; Hypertension; ss - PSHx: 14:56 endoscopy; Heart stents; ss - Immunization history:: Adult Immunizations up to date. - Social history:: Smoking status: Patient denies any tobacco usage or history of. - Family history:: not pertinent. ROS: 18:06 Constitutional: Negative for fever, chills, and weight loss, Eyes: Negative for injury, tim pain, redness, and discharge, ENT: Negative for injury, pain, and discharge, Neck: Negative for injury, pain, and swelling, Cardiovascular: Negative for chest pain, palpitations, and edema, Respiratory: Negative for shortness of breath, cough, wheezing, and pleuritic chest pain, Abdomen/GI: Negative for abdominal pain, nausea, vomiting, diarrhea, and constipation, Back: Negative for injury and pain, : Negative for injury, bleeding, discharge, and swelling, MS/Extremity: Negative for injury and deformity, Skin: Negative for injury, rash, and discoloration, Psych: Negative for depression, anxiety, suicide ideation, homicidal ideation, and hallucinations, Allergy/Immunology: Negative for hives, rash, and allergies, Endocrine: Negative for neck swelling, polydipsia, polyuria, polyphagia, and marked weight changes, Hematologic/Lymphatic: Negative for swollen nodes, abnormal bleeding, and unusual bruising. 18:06 Neuro: Positive for altered mental status, dizziness, weakness. Exam: 18:08 Constitutional: This is a well developed, well nourished patient who is awake, alert, tim and in no acute distress. Head/Face: Normocephalic, atraumatic. Eyes: Pupils equal round and reactive to light, extra-ocular motions intact. Lids and lashes normal. Conjunctiva and sclera are non-icteric and not injected. Cornea within normal limits. Periorbital areas with no swelling, redness, or edema. ENT: Nares patent. No nasal discharge, no septal abnormalities noted. Tympanic membranes are normal and external auditory canals are clear. Oropharynx with no redness, swelling, or masses, exudates, or evidence of obstruction, uvula midline. Mucous membranes moist. Neck: Trachea midline, no thyromegaly or masses palpated, and no cervical lymphadenopathy. Supple, full range of motion without nuchal rigidity, or vertebral point tenderness. No Meningismus. Chest/axilla: Normal chest wall appearance and motion. Nontender with no deformity. No lesions are appreciated. Cardiovascular: Regular rate and rhythm with a normal S1 and S2. No gallops, murmurs, or rubs. Normal PMI, no JVD. No pulse deficits. Respiratory: Lungs have equal breath sounds bilaterally, clear to auscultation and percussion. No rales, rhonchi or wheezes noted. No increased work of breathing, no retractions or nasal flaring. Abdomen/GI: Soft, non-tender, with normal bowel sounds. No distension or tympany. No guarding or rebound. No evidence of tenderness throughout. Back: No spinal tenderness. No costovertebral tenderness. Full range of motion. Male : Normal genitalia with no discharge or lesions. MS/ Extremity: Pulses equal, no cyanosis. Neurovascular intact. Full, normal range of motion. Psych: Awake, alert, with orientation to person, place and time. Behavior, mood, and affect are within normal limits. 18:08 Skin: Appearance: Color: jaundiced, Temperature: normal temperature, Moisture: normal moisture, petechiae, not noted, ecchymosis, not noted, flushing, not noted, diaphoresis is not appreciated. 18:08 Neuro: Orientation: is normal, appropriate for stated age, no acute changes, per family, Mentation: is normal, appropriate for stated age, no acute changes, Memory: is normal, appropriate for stated age, no acute changes, Cranial nerves: grossly normal, is grossly normal based on the patient's age, no acute changes, Cerebellar function: is grossly normal, is grossly normal based on the patient's age, no acute changes, Motor: is normal, is grossly normal based on the patient's age, no acute changes, moves all fours, strength is normal, Sensation: is normal, no obvious gross deficits, appropriate Gait: not applicable is steady, appropriate for age, Deep tendon reflexes are 2+ (normal) in the bilateral brachioradialis, bicep, tricep and patellar and Achilles tendons, Babinski testing is normal, seizure activity, is not displayed by the patient. 18:15 ECG was reviewed by the Attending Physician. [facility] Vital Signs: 14:54 BP 134 / 54; Pulse 50; Resp 16; Temp 97.5(TE); Pulse Ox 95% on R/A; Weight 79.38 kg; ss Height 5 ft. 6 in. (167.64 cm); Pain 0/10; 15:16 BP 143 / 55; Pulse 52; Resp 16; Pulse Ox 99% on R/A; vg1 16:00 BP 152 / 61; Pulse 50; Resp 16; Pulse Ox 99% on R/A; vg1 17:00 BP 153 / 51; Pulse 50; Resp 16; Pulse Ox 99% on R/A; vg1 18:28 BP 155 / 58 Supine; Pulse 53; vg1 18:30 BP 147 / 58 Sitting; Pulse 53; vg1 18:32 BP 149 / 56 Standing; Pulse 53; vg1 19:00 BP 155 / 56; Pulse 51; Resp 20; Pulse Ox 99% on R/A; kg 14:54 Body Mass Index 28.25 (79.38 kg, 167.64 cm) MDM: 15:17 Patient medically screened. tim 18:09 Differential Diagnosis altered mental status. Differential diagnosis: cardiac tim arrhythmia, generalized weakness, GI bleed, idiopathic dizziness, near-syncope. Data reviewed: vital signs, nurses notes, lab test result(s), EKG, radiologic studies, CT scan. 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 Test interpretation: by ED physician or midlevel provider: ECG, plain radiologic studies. Counseling: I had a detailed discussion with the patient and/or guardian regarding: the historical points, exam findings, and any diagnostic results supporting the discharge/admit diagnosis, lab results, radiology results, the need for outpatient follow up, for definitive care, a detention worker, an office nurse practitioner. 01/30 15:10 Order name: Basic Metabolic Panel; Complete Time: 17:[address] [facility] 01/30 15:10 Order name: CBC with Diff; Complete Time: 17:[address] [facility] 01/30 15:10 Order name: LFT's; Complete Time: 17:[address] [facility] 01/30 15:10 Order name: Magnesium; Complete Time: 17:[address] [facility] 01/30 15:10 Order name: NT PRO-BNP; Complete Time: 17:[address] [facility] 01/30 15:10 Order name: PT-INR; Complete Time: 17:[address] [facility] 01/30 15:10 Order name: Troponin (emerg Dept Use Only); Complete Time: 17:[address] [facility] 01/30 15:10 Order name: Lipase; Complete Time: 17:[address] [facility] 01/30 15:10 Order name: AMMONIA; Complete Time: 17:[address] [facility] 01/30 15:10 Order name: Urine Culture [facility] 01/30 16:06 Order name: Urine Dipstick-Ancillary; Complete Time: 17:40 [facility] 01/30 16:26 Order name: SARS-COV-2 RT PCR; Complete Time: 17:40 [facility] 01/30 17:36 Order name: CBC Smear Scan; Complete Time: 17:40 [facility] 01/30 15:10 Order name: XRAY Chest (1 view); Complete Time: 17:[address] [facility] 01/30 15:10 Order name: EKG; Complete Time: 15:[address] [facility] 01/30 15:10 Order name: Cardiac monitoring; Complete Time: 15:[address] [facility] 01/30 15:10 Order name: EKG - Nurse/Tech; Complete Time: 15:[address] [facility] 01/30 15:10 Order name: IV Saline Lock; Complete Time: 15:[address] [facility] 01/30 15:10 Order name: Labs collected and sent; Complete Time: 15:[address] [facility] 01/30 15:10 Order name: O2 Per Protocol; Complete Time: 15:[address] [facility] 01/30 15:10 Order name: O2 Sat Monitoring; Complete Time: 15:[address] [facility] 01/30 15:10 Order name: Urine Dipstick-Ancillary (obtain specimen); Complete Time: 16:[address] [facility] 01/30 17:41 Order name: Orthostatics; Complete Time: 18:[address] [facility] EC:15 Rate is 47 beats/min. Rhythm is regular. QRS Dinosaur is Normal. TX interval is normal. QRS tim interval is normal. QT interval is normal. No Q waves. T waves are Normal. No ST changes noted. Clinical impression: Sinus bradycardia and No evidence of ischemia. Interpreted by me. Reviewed by me. Administered Medications: 15:45 Drug: NS 0.9% 500 ml Route: IV; Rate: bolus; Site: left antecubital; vg1 16:34 Follow up: IV Status: Completed infusion; IV Intake: 500ml vg1 19:20 Follow up: Response: No adverse reaction; Marked relief of symptoms kg 16:34 Drug: NS 0.9% 1000 ml Route: IV; Rate: 125 ml/hr; Site: left antecubital; vg1 19:20 Follow up: Response: No adverse reaction; IV Status: Completed infusion; IV Intake: kg 1000ml 18:19 Drug: ProTONIX (pantoprazole) 40 mg Route: IVP; Site: left antecubital; vg1 19:20 Follow up: Response: No adverse reaction; Marked relief of symptoms kg 18:22 Drug: Lactulose 30 grams Volume: 45 ml; Route: PO; vg1 19:20 Follow up: Response: No adverse reaction; Marked relief of symptoms kg 18:26 Drug: Vitamin K1 (phytonadione) 5 mg Route: Sub-Q; Site: right lower abdomen; vg1 19:20 Follow up: Response: No adverse reaction kg Disposition: 01/30/21 18:13 Discharged to Home. Impression: Weakness, Alcoholic cirrhosis of liver without ascites, Encephalopathy, unspecified - hepatic. - Condition is Stable. - Discharge Instructions: Diet and Hepatitis, Weakness, Hepatic Encephalopathy, Esophageal Varices, Alcoholic Liver Disease, [id number], Weakness, [id number], Alcoholic Liver Disease, Liver Failure, Nonalcoholic Fatty Liver Disease Diet. - Prescriptions for Lactulose 10 gram/15 mL Oral Solution - take 30 milliliter by ORAL route once daily; 300 milliliter. - Medication Reconciliation Form, Thank You Letter, Antibiotic Education, Prescription Opioid Use form. - Follow up: Private Physician; When: 2 - 3 days; Reason: Recheck today's complaints, Continuance of care, Re-evaluation by your physician. - Problem is new. - Symptoms have improved. Signatures: Dispatcher [employer] [facility] Foster Tai MD MD cha Smirch, Shelby, RN RN ss Irma Noble RN RN vg1 Delphine Breen RN RN kg Corrections: (The following items were deleted from the chart) 15:30 15:11 CORONAVIRUS+MR.LAB.BRZ ordered. [facility] 19:21 18:13 01/30/2021 18:13 Discharged to Home. Impression: Weakness; Alcoholic cirrhosis of kg liver without ascites; Encephalopathy, unspecified - hepatic. Condition is Stable. Forms are Medication Reconciliation Form, Thank You Letter, Antibiotic Education, Prescription Opioid Use. Follow up: Private Physician; When: 2 - 3 days; Reason: Recheck today's complaints, Continuance of care, Re-evaluation by your physician. Problem is new. Symptoms have improved. tim
[2021-01-30] MEDS ORDERED: LACTULOSE 20 GM/30 ML UCUP ONE (18:27)
[2021-01-30] MEDS ORDERED: PANTOPRAZOLE 40 MG INJ ONE (18:27)
[2021-01-30] MEDS ORDERED: VITAMIN K (ADULT) 10 MG/ML ONE (18:31)
[2021-01-30 19:52] VITALS: TEMP 97.5
[2021-01-30 19:53] VITALS: O2SAT 99
[2021-01-30 20:01] VITALS: BP 155/56
--- NOTE | 2021-01-31 10:28 | EKG ---
Test Date: 2021-01-30 Test Time: 15:31:11 Account Support Analyst: DIONE MEASUREMENT RESULTS: Intervals: Rate: 47 RI: 152 QRSD: 96 QT: 504 QTc: 446 [place]: P: 38 RI: 152 QRS: 50 T: 61 INTERPRETIVE STATEMENTS: Marked sinus bradycardia Minimal voltage criteria for LVH, may be normal variant ST abnormality, possible digitalis effect Abnormal ECG No previous ECG available for comparison Electronically Signed On 01-31-21 10:25:48 CDT by Richie Mccullough
== END 2021-01-30 19:21 | disposition home or self-care (01) ==
LOC: ER 14:35
DX: K72.90 Hepatic failure, unspecified without coma (principal); K70.30 Alcoholic cirrhosis of liver without ascites; I10 Essential (primary) hypertension; Z20.822 Contact with and (suspected) exposure to COVID-19; Z95.818 Presence of other cardiac implants and grafts
CPT/HCPCS: 93005; 87088; 85025; 87086; 80048; 36415; 82140; 83735; 85610; 80076; 81003; 84484; 83690; 83880; 71045; U0003; J3430; C9113; J7030; 96361; 96372; 96374; 99284